=== PATIENT | female | born 1940 | race Caucasian/White ===

== ENCOUNTER 2017-05-03 12:35 | Outpatient (CLI) | payer MEDICARE ==
--- NOTE | 2017-05-03 14:18 | RAD ---
CHEST 2 VIEWS: Date: 05/03/17 HISTORY: Dyspnea. COMPARISON: 09/27/12. FINDINGS: Cardiac silhouette and pulmonary vasculature are unremarkable. Lungs are hyperinflated with scarring at each lung base. There is no confluent air space consolidation, pneumothorax, or pleural fluid evid ent. Mediastinum is midline. IMPRESSION: COPD. POS: CARLYN
== END 2017-05-03 12:36 | disposition home or self-care (01) ==
LOC: RAD 12:35
PROVIDERS: ATTEND Internal Medicine
DX: R06.00 Dyspnea, unspecified (principal); J44.9 Chronic obstructive pulmonary disease, unspecified
CPT/HCPCS: 71046

== ENCOUNTER 2017-05-31 08:29 | Outpatient (CLI) | payer MEDICARE ==
--- NOTE | 2017-05-31 09:53 | CT ---
HIGH RESOLUTION NONCONTRAST CHEST CT: Comparison: Chest CT 09-25-12 Clinical history: Pulmonary fibrosis. FINDINGS: There is bronchiectasis bilaterally, which is predominately traction in appearance. There are multifo kinsey areas of interstitial and ground glass opacification within each lung, predominately subpleural i n location. There is peripheral honeycombing present bilaterally. No pleural fluid. Incidental note of a small hiatal hernia, incompletely assessed exophytic nodule at the inferior aspe ct of the left thyroid lobe. The regional soft tissues are limited in assessment by noncontrast thin section discontiguous axial imaging, as are the osseous structures. IMPRESSION: 1. Evidence of pulmonary fibrosis bilaterally with areas of interstitial opacification and ground gla ss opacity, honeycombing and bronchiectasis, bilaterally. 2. Thyroid nodule, incompletely assessed. Consider follow up with dedicated thyroid ultrasound. POS: CARLYN
--- NOTE | 2017-06-01 11:03 | PFT ---
PATIENT HISTORY: HEIGHT: WEIGHT: SMOKER: HOW LONG: PACKS PER DAY PRODUCTIVE COUGH: LUNG DISEASE: PHYSICIAN INTERPRETATION FINAL REPORT: [employer] comments: The patient had good effort cooperation PFT data: FVC 2.56 (87%), FEV1 12.2 (107%) FEV1/FVC 0.85. TLC 3.94 (78%) Diffusion 10.92 (62%). The FEV1 and the FVC fall within the normal limits. The ratio was also normal. The flow volume loops are normal. Total lung capacity and the residual volume or minimally impaired. The diffusion capacity is mildly reduced IMPRESSION: Overall, in these pulmonary function studies are consistent with an isolated reduced diffusion capacity. That being said, the lung volumes at the lower limits of normal. Early interstitial process cannot be excluded. Clinical and radiographic correlation should be considered. No priors for comparison. Property Technician: BORIS Post Doctoral Researcher: BORIS RENNER
== END 2017-05-31 08:30 | disposition home or self-care (01) ==
LOC: CT 08:29
PROVIDERS: ATTEND Internal Medicine
DX: J84.10 Pulmonary fibrosis, unspecified (principal); J47.9 Bronchiectasis, uncomplicated; E04.1 Nontoxic single thyroid nodule
CPT/HCPCS: 36415; 71250; 82085; 82550; 83520; 85652; 86038; 86140; 86200; 86225; 86235; 94010; 94727; 94729

== ENCOUNTER 2017-07-27 14:30 | Outpatient (CLI) | payer MEDICARE | END 2017-07-27 14:31 | disposition home or self-care (01) | LOC: BICULT 14:30 | PROVIDERS: ATTEND Internal Medicine Endocrinology, Diabetes & Metabolism | DX: E04.9 Nontoxic goiter, unspecified (principal); E11.9 Type 2 diabetes mellitus without complications; J84.112 Idiopathic pulmonary fibrosis; E07.89 Other specified disorders of thyroid | CPT/HCPCS: 76536 ==

== ENCOUNTER 2017-08-07 08:00 | Day surgery (SDC) | payer MEDICARE ==
[2017-08-04 11:53] VITALS: BMI 24.2
[2017-08-07] MEDS ORDERED: Sodium Bicarbonate 2.5 MEQ/5 ML VIAL ONE (08:27)
[2017-08-07] MEDS ORDERED: Lidocaine 1% PF 5 ML VIAL ONE (08:27)
[2017-08-07 09:16] VITALS: BP 128/57; TEMP 98.4
--- NOTE | 2017-08-07 10:45 | ULT ---
ULTRASOUND GUIDED THYROID BIOPSY: History: Left lobe thyroid nodule measuring 2.5 cm in maximum dimension has central necrotic portion and was recommended for biopsy. FINDINGS: After informed consent was obtained the patient was prepped and draped in normal sterile fashion. Loc al anesthesia was obtained with 1% Xylocaine mixed with sodium bicarb. A total of four fine needle as pirations were performed with a 25 gauge needle. The patient tolerated the procedure well. There were no immediate complications. IMPRESSION: Successful biopsy of left lobe thyroid nodule. No immediate complications of the procedure. POS: CARLYN
== END 2017-08-07 09:30 | disposition home or self-care (01) ==
LOC: ULT 08:00
PROVIDERS: ATTEND Internal Medicine Endocrinology, Diabetes & Metabolism
PROC: 0GBG3ZX Excision of Left Thyroid Gland Lobe, Percutaneous Approach, Diagnostic (ICD-10-PCS; principal; 2017-08-07)
DX: E04.1 Nontoxic single thyroid nodule (principal); Z88.1 Allergy status to other antibiotic agents
CPT/HCPCS: 60100; 76942; 88173; 88305; J2001

== ENCOUNTER 2018-02-19 13:29 | Emergency (ER) | payer MEDICARE ==
[2018-02-19 14:29] LABS: #Eosinphils 0.1 thou/uL (0.0-0.7); #Lymphocytes 1.2 thou/uL (1.20-3.40); #Monocytes 0.5 thou/uL (0.11-0.59); #Neutrophils 9.9 thou/uL (1.40-6.50); %Basophils 0.2 % (0.0-1.0); %Eosinophils 0.7 % (0.0-10.0); %Lymphocytes 10.5 % (21.0-51.0); %Monocytes 4.5 % (0.0-10.0); %Neutrophils 84.2 % (42.0-75.0); Hemoglobin 11.1 g/dL (12.0-16.0); Mean Corpuscular HGB CONC 31.4 g/dL (32.0-36.0); Mean Corpuscular Hemoglobin 28.8 pg (27.0-31.0); Mean Corpuscular Volume 91.8 fL (78.0-98.0); Mean Platelet Volume 6.7 fL (7.4-10.4); Platelet Count 356 thou/uL (130-400); RBC Distribution Width 14.4 % (11.5-14.5); Red Blood Cell (RBC) Count 3.85 mill/uL (4.20-5.40); White Blood Cell (WBC) Count 11.7 thou/uL (4.8-10.8)
[2018-02-19 14:49] LABS: ALT (SGPT) 7 U/L (8-55); AST (SGOT) 15 U/L (5-34); Albumin 3.4 g/dL (3.4-4.8); Alkaline Phosphatase 64 U/L (40-150); Anion Gap 16 mmol/L (10-20); BUN (Urea Nitrogen) 16 mg/dL (9.8-20.1); Bilirubin, Total 0.3 mg/dL (0.2-1.2); Calc. Creatinine Clearance 0 mL/min (70-130); Calcium 9.7 mg/dL (7.8-10.44); Carbon Dioxide 25 mmol/L (23-31); Chloride 100 mmol/L (98-107); Estimated GFR-MDRD 80; Globulin 3.8 g/dL (2.4-3.5); Glucose 128 mg/dL (83-110); Potassium 4.6 mmol/L (3.5-5.1); Protein, Total 7.2 g/dL (6.0-8.3); Sodium 136 mmol/L (136-145)
--- NOTE | 2018-02-19 14:50 | RAD ---
PORTABLE CHEST ONE VIEW: 02/19/18 at 1:15 p.m. HISTORY: Nausea, vomiting, dark stools, generalized weakness. FINDINGS: Comparison is made with the exam of 03/12/14. The heart size is enlarged. Chronic changes are seen in the lung sal[place] bilaterally. No lobar consoli dation, pneumothoraces, or pleural effusions are noted. IMPRESSION: No acute process. POS: [facility]
[2018-02-19 14:53] LABS: CKMB 3.2 ng/mL (0-6.6); Troponin I Less than 0.010 ng/mL (< 0.028)
[2018-02-19 14:57] LABS: INR-International Normal Ratio 1.1; PTT 28.9 SEC (22.9-36.1); Prothrombin Time 13.8 SEC (12.0-14.7)
[2018-02-19] MEDS ORDERED: Pantoprazole 40 MG VIAL ONE (15:38)
[2018-02-19 16:00] LABS: Bilirubin Negative (Negative); Blood, Urine Large (Negative); Clarity CLEAR (Clear); Glucose, Urine (Dipstick) Negative (Negative); Leukocyte Negative (Negative); Nitrite Negative (Negative); Protein, Urine (Dipstick) Negative (Neg-Trace); Specific Gravity, Urine 1.009 (1.002-1.036); Urobilinogen 0.2 mg/dL (0.2-1.0)
[2018-02-19 16:06] LABS: Bacteria/HPF None Seen HPF (None Seen); Hyaline Casts/LPF 0-3 HYALINE CAST LPF (0-3 Hyaline); Pathc Cast-AUWi Flag 0.43 (0-2.49); RBC/HPF 21-50 HPF (0-3); Squamous Epithelial 0-3 HPF (0-3); WBC/HPF 0-3 HPF (0-3)
== END 2018-02-19 16:25 | disposition home or self-care (01) ==
LOC: ERS 13:29
DX: D64.89 Other specified anemias (principal); M06.9 Rheumatoid arthritis, unspecified; E78.5 Hyperlipidemia, unspecified; I10 Essential (primary) hypertension; F41.9 Anxiety disorder, unspecified; F32.9 Major depressive disorder, single episode, unspecified; E11.9 Type 2 diabetes mellitus without complications; Z79.899 Other long term (current) drug therapy; Z79.84 Long term (current) use of oral hypoglycemic drugs
CPT/HCPCS: 36415; 51701; 71045; 80053; 81003; 81015; 82274; 82553; 83880; 84484; 85025; 85610; 85652; 85730; 86140; 86850; 86900; 86901; 93005; 96361; 96374; A4353; C9113

== ENCOUNTER 2018-05-31 14:34 | Outpatient (CLI) | payer MEDICARE ==
--- NOTE | 2018-06-01 07:23 | ULT ---
THYROID ULTRASOUND: 05/31/18 HISTORY: Thyroid mass. Thyroid goiter. COMPARISON: 07/27/17. TECHNIQUE: Sagittal and transverse imaging of thyroid gland is performed. FINDINGS: Thyroid isthmus measures 0.4 cm. Right thyroid lobe measures 3.5 x 1.4 x 0.7 cm. Left thyroid lobe measures 1.2 x 1.6 x 5.4 cm. In the mid to lower aspect of the left thyroid lobe is a complex solid and cystic mass measuring 2.5 x 3.8 x 1.6 cm. Incidental 0.7 cm solid focus in the right thyroid lobe. IMPRESSION: Complex solid and cystic mass in the left thyroid lobe. TIRADS calculator score of TR4 moderately radha picious. This lesion has been biopsied in the past. Please refer to biopsy report for further detai l. POS: CARLYN
== END 2018-05-31 14:35 | disposition home or self-care (01) ==
LOC: BICULT 14:34
PROVIDERS: ATTEND Internal Medicine Endocrinology, Diabetes & Metabolism
DX: E04.8 Other specified nontoxic goiter (principal); J84.112 Idiopathic pulmonary fibrosis; E07.9 Disorder of thyroid, unspecified
CPT/HCPCS: 76536

== ENCOUNTER 2018-10-31 08:53 | Outpatient (CLI) | payer MEDICARE ==
--- NOTE | 2018-11-01 15:52 | PFT ---
PATIENT HISTORY: HEIGHT: 67 IN WEIGHT: 147 SMOKER: NO HOW LONG: NEVER PACKS PER DAY: PRODUCTIVE COUGH: NO LUNG DISEASE: PHYSICIAN INTERPRETATION FINAL REPORT: Patients Vital Capacity and Expiratory Flows were normal, but Diffusion Capacity was severely reduced. These values were compared to a previous Diffusion Capacity done 05/2017 which shows there is a further decline in the Diffusion Capacity. IMPRESSION: Reduced diffusion capacity Mortgage Broker: BORIS [facility] Director: BORIS RENNER
== END 2018-10-31 08:54 | disposition home or self-care (01) ==
LOC: CP 08:53
PROVIDERS: ATTEND Internal Medicine
DX: J84.89 Other specified interstitial pulmonary diseases (principal); M06.9 Rheumatoid arthritis, unspecified
CPT/HCPCS: 94010; 94729

== ENCOUNTER 2019-04-11 14:40 | Inpatient (IN) | payer MEDICARE ==
[2019-04-11] MEDS ORDERED: HYDROcodone/Acetaminophen 5/325 mg Tablet ONE (15:30)
[2019-04-11] MEDS ORDERED: Ibuprofen 200 MG TAB ONE (15:30)
--- NOTE | 2019-04-11 15:58 | CT ---
CT lumbar spine without IV contrast INDICATION: 78-year-old female with back pain Comparison: None FINDINGS: Bones: There is a mild to moderate central superior and inferior endplate compression abnormality inv olving L1. There is bulging of the posterior cortex of L1 without maribeth retropulsion. There is a transverse oriented fracture component that does extend through the central axis of the vertebral bod y. Overall this is consistent with a mild burst fracture. No additional fracture is evident. There is diffuse osteopenia. Disc spaces: There is multilevel loss of normal disc space height most pronounced at L3-4 and L5-S1. There is grade 1 anterolisthesis of L4 and L5 which is likely degenerative. Osseous central canal and neural foramina: No appreciable osseous central canal or neural foraminal n arrowing is demonstrated. Retroperitoneum and paravertebral soft tissues: There is an exophytic mildly hyperdense lesion off th e inferior pole of the right kidney. This measures 1.6 cm. There are mild vascular calcifications seen involving the visualized vasculature. IMPRESSION: 1. Mild burst fracture of L1. 2. Exophytic right renal lesion. Recommend nonemergent follow-up right renal ultrasound for character ization. 3. Moderate lumbar spondylosis. 4. Severe osteopenia.
[2019-04-11] MEDS ORDERED: Cyclobenzaprine 10 MG TAB PO PRN (19:43)
[2019-04-11] MEDS ORDERED: Dextrose 5% in Water 1,000 ML IV PRN (19:45)
[2019-04-11] MEDS ORDERED: Dextrose 50% Abboject 50 ML SYRINGE SLOW IVP PRN (19:45)
[2019-04-11] MEDS ORDERED: Ondansetron PF 4 MG/2 ML Vial IVP PRN (19:47)
[2019-04-11] MEDS ORDERED: Ondansetron ODT 4 MG TAB PO PRN (19:47)
[2019-04-11] MEDS ORDERED: Acetaminophen 325 MG TAB PO PRN (19:47)
[2019-04-11] MEDS ORDERED: Morphine 2 MG/ML SYRINGE SLOW IVP PRN (19:50)
[2019-04-11] MEDS ORDERED: cloNIDine 0.1 MG TAB PO PRN (19:50)
--- NOTE | 2019-04-11 20:06 | HP ---
PRIMARY CARE PHYSICIAN: Dr. Bergeron. PRIMARY RESIDENT ATHLETIC TRAINER: Dr. Peña. CHIEF COMPLAINT: Worsening back pain of 1 week duration. HISTORY OF PRESENT ILLNESS: The patient is a 78-year-old white female, with rheumatoid arthritis on chronic steroids and Humira, diabetes mellitus type 2, and degenerative joint disease, presented to the emergency room with above complaints. Over the last 1 week, the patient has low back pain that is progressively getting worse. The pain got worse today for which she presented to the emergency room. The pain is located in the mid low back. The pain is worse on movement, especially sitting up. Sometimes the pain radiates to the right groin. It is 5/10, constant, relieved on lying down flat. She denies any numbness or tingling in her extremities. She has chronic bladder incontinence which has unchanged. No bowel incontinence reported. She denies any fever, chills, or injuries. In the emergency room, she underwent a CT scan of the lumbar spine without IV contrast that showed mild burst fracture of L1 with moderate lumbar spondylosis and severe osteopenia. She received Sabin and Motrin in the emergency room. PAST MEDICAL HISTORY: 1. Rheumatoid arthritis. 2. Diabetes mellitus type 2. 3. Hypertension. 4. Hyperlipidemia. 5. Degenerative joint disease. 6. Pulmonary fibrosis/Latent Tuberculosis, followed by Dr. Hopson. 7. History of ischemic colitis. PAST SURGICAL HISTORY: 1. Tonsillectomy. 2. Left femur surgery. 3. Ankle surgery. 4. Left hip surgery. 5. Thyroid biopsy. 6. Partial colectomy. ALLERGIES: THE PATIENT IS ALLERGIC TO CIPRO AND LEVAQUIN. FAMILY HISTORY: The patient denies any heart disease or malignancy in her family. SOCIAL HISTORY: The patient currently lives at home with her . Ambulates with the help of a walker. She is full code. She makes her own decision with the help of her family. CURRENT HOME MEDICATIONS: Medications were verified and entered in the [employer]. She takes hydrocodone, Humira, Xanax, calcium with vitamin D, Tresiba 40 units at bedtime, levothyroxine 75 mcg daily, Victoza, lisinopril, lovastatin, metformin, Protonix, and prednisone 5 mg b.i.d. REVIEW OF SYSTEMS: All other review of systems was reviewed and were found negative. PHYSICAL EXAMINATION: VITAL SIGNS: Temperature 98.7, respirations of 16, pulse rate of 106, blood pressure 123/82 with O2 saturation of 95% on room air. GENERAL: A 78-year-old female, in no distress while lying down flat. HEENT: Head, atraumatic and normocephalic. Sclerae anicteric. Moist mucous membrane. No oral lesion. NECK: Supple. No JVD. No carotid bruit. LUNGS: Clear to auscultation bilaterally with bilateral rhonchi with bibasilar rales. No wheezing. LUNGS: Symmetrical. HEART: S1, S2 present. Regular. No rubs or gallops. ABDOMEN: Soft, nontender. Bowel sounds present. EXTREMITIES: No edema or calf tenderness. NEUROLOGY: Grossly nonfocal. Power was 5/5 in all extremities. Sensation to touch was normal bilaterally. MUSCULOSKELETAL: There is pain on the low back. Please note that the patient was lying down flat. SKIN: Warm and dry. LYMPH NODES: No palpable lymph nodes in the neck. Peripheral, vascular, radial pulses are palpable bilaterally. MUSCULOSKELETAL: No joint swelling or tenderness. LABORATORY FINDINGS: Blood sugar was 117. Creatinine last blood work was 0.7. CT of the lumbar spine by my review as discussed above. It also showed exophytic right renal lesion with moderate lumbar spondylosis and severe osteopenia. IMPRESSION: 1. Acute low back pain secondary to L1 compression fracture. 2. New exophytic right renal lesion. Nonemergent right renal ultrasound is recommended. Primary care physician advised to follow. 3. Severe osteopenia with moderate lumbar spondylosis. 4. Rheumatoid arthritis, on chronic steroids and Humira. Last dose of Humira was earlier today. 5. Diabetes mellitus type 2. 6. Hyperlipidemia. 7. Hypertension. 8. Hypothyroidism. 9. Degenerative joint disease. 10. Quinolone allergy. PLAN: The patient will be monitored on the medical floor. Physical Therapy, Occupational Therapy will be consulted. The patient will be bedrest for now until cleared by Neurosurgery. We will start her on insulin sliding scale. Pain control with home dose of Sabin as well as IV morphine as needed. We will also add lidocaine patch. We will resume all of her home medications. Continue PPIs. Continue vitamin D and calcium supplementation. Plan of care was discussed with the patient in detail. She stated understanding. Please note that an attempt was made to send her to the rehab from the emergency room. Job ID: [id number] [facility]
[2019-04-11] MEDS ORDERED: predniSONE 5 MG TAB PO SCH (20:30)
[2019-04-11] MEDS ORDERED: Non-Formulary Item 1 EACH (Insulin Degludec [Tresiba Flextouch U-100] 20 UNIT) SQ SCH (21:00)
[2019-04-11] MEDS: Acetaminophen 325 MG TAB PO SCH (21:05)
[2019-04-11] MEDS: ALPRAZolam 0.25 MG TAB PO PRN (21:07)
[2019-04-11] MEDS: Lidocaine 5% Patch TD SCH (21:10)
[2019-04-11] MEDS: Insulin Glargine 20 UNITS in Pre-Filled Syringe 1 EACH SC SCH (21:10)
[2019-04-11 21:58] VITALS: BMI 23.5
--- NOTE | 2019-04-12 02:18 | CON ---
DATE OF CONSULTATION: ADDITIONAL DICTATOR FOR: Isael Zepeda PA-C HISTORY OF PRESENT ILLNESS: Ms. Bolotn is a very pleasant 78-year-old female whom we were consulted for her low back pain and L1 burst fracture. The patient reports that she has had increased pain in her lower back over the last week with no preceding injury or fall. She reports some right groin pain, otherwise, she denies any leg pain. She does report numbness and tingling in her bilateral feet. However, notes that she is diabetic and there is a potential for a peripheral neuropathy related to this. The patient states that she ambulates with a cane at baseline. PAST MEDICAL HISTORY: Her medical history is significant for rheumatoid arthritis. PHYSICAL EXAMINATION: NEURO: On exam, the patient is awake, alert, and appropriate. She has midline tenderness to palpation over the L1 vertebra and a limited range of motion secondary to pain. She has excellent strength throughout her bilateral lower extremity myotomes. Sensation to light touch is intact and equal in her bilateral lower extremities. She has good movement in her legs. Gait was not assessed. IMPRESSION AND DIAGNOSES: 1. Low back pain with L1 burst fracture. 2. History of rheumatoid arthritis. PLAN: At this time, I have placed a consult for [facility] to see patient and place in a TLSO clamshell brace. I have instructed that the patient be on bed rest until she can be fitted for her brace. Discussed that she should wear the brace anytime she is out of bed. She may wear the brace at other times when seated or lying in bed, however, discuss that constantly wearing the brace may lead to skin breakdown, so she should monitor for this. The patient and her questioned about the need for inpatient rehabilitation. At this time, I am optimistic that the patient will receive improvement in pain and mobility with a TLSO clamshell bracing. However, we have discussed that home health physical therapy or inpatient physical therapy could be considered when re-evaluated after she gets her brace. We will follow up with the patient in clinic in 2 weeks, at which time, we will obtain lumbar x-rays. I have discussed this case and imaging with Dr. Patel. The patient and her agreed with the plan as discussed and all questions were answered. Call with any changes or concerns, otherwise we will see the patient in clinic. This was a 50-minute initial patient evaluation of which greater than 50% of the time was spent in counseling and the clinical coordination. Remaining time was spent in review of records, imaging, evaluation of the patient, examination, and formulation of a plan. Job ID: [id number]
[2019-04-12] MEDS: Levothyroxine Sodium 75 MCG TAB PO SCH (05:38)
[2019-04-12] MEDS: Insulin Regular 300 UNITS/3 ML VIAL SC PRN ×4 (05:38→21:18)
[2019-04-12] MEDS: HYDROcodone/Acetaminophen 5/325 mg Tablet PO PRN (05:42)
[2019-04-12 06:24] LABS: #Eosinphils 0.1 thou/uL (0.0-0.7); #Lymphocytes 1.3 thou/uL (1.20-3.40); #Monocytes 0.7 thou/uL (0.11-0.59); #Neutrophils 7.3 thou/uL (1.40-6.50); %Basophils 0.2 % (0.0-1.0); %Eosinophils 0.9 % (0.0-10.0); %Lymphocytes 13.8 % (21.0-51.0); %Monocytes 7.4 % (0.0-10.0); %Neutrophils 77.8 % (42.0-75.0); Hemoglobin 13.2 g/dL (12.0-16.0); Mean Corpuscular HGB CONC 33.4 g/dL (32.0-36.0); Mean Corpuscular Hemoglobin 30.8 pg (27.0-31.0); Mean Corpuscular Volume 92.3 fL (78.0-98.0); Mean Platelet Volume 6.8 fL (7.4-10.4); Platelet Count 235 thou/uL (130-400); RBC Distribution Width 15.1 % (11.5-14.5); Red Blood Cell (RBC) Count 4.28 mill/uL (4.20-5.40); White Blood Cell (WBC) Count 9.4 thou/uL (4.8-10.8)
[2019-04-12 06:35] LABS: ALT (SGPT) 20 U/L (8-55); AST (SGOT) 15 U/L (5-34); Albumin 3.6 g/dL (3.4-4.8); Alkaline Phosphatase 79 U/L (40-110); Anion Gap 13 mmol/L (10-20); BUN (Urea Nitrogen) 31 mg/dL (9.8-20.1); Bilirubin, Total 0.5 mg/dL (0.2-1.2); Calc. Creatinine Clearance 59 mL/min (70-130); Calcium 9.6 mg/dL (7.8-10.44); Carbon Dioxide 26 mmol/L (23-31); Chloride 100 mmol/L (98-107); Estimated GFR-MDRD 72; Glucose 160 mg/dL (83-110); Potassium 4.9 mmol/L (3.5-5.1); Protein, Total 6.6 g/dL (6.0-8.3); Sodium 134 mmol/L (136-145)
[2019-04-12] MEDS: metFORMIN 500 MG TAB PO SCH (08:20)
[2019-04-12] MEDS: Acetaminophen 325 MG TAB PO SCH ×3 (08:21→20:14)
[2019-04-12] MEDS: Calcium Carbonate + Vit D 1 TAB PO SCH ×2 (08:22→17:40)
[2019-04-12] MEDS: Enoxaparin Sodium 30 MG/0.3 ML SYRINGE SC SCH (08:23)
[2019-04-12] MEDS ORDERED: Prevnar 13-Val Conj/PF 0.5 ML SYRINGE IM ONE (09:00)
[2019-04-12] MEDS ORDERED: FLU VACC TS2019-20(65YR UP)/PF 180 MCG/0.5 ML SYRINGE IM ONE (09:00)
[2019-04-12] MEDS ORDERED: Liraglutide [Victoza 2-Pak] 1.8 MG SC SCH (09:00)
[2019-04-12] MEDS: predniSONE 5 MG TAB PO SCH ×2 (09:42→17:40)
[2019-04-12] MEDS: Lidocaine Patch Removal 1 EACH TOP SCH (09:44)
--- NOTE | 2019-04-12 16:00 | PDOC.HOSPP ---
- Subjective Encounter Date: 04/12/19 Encounter Time: 15:58 Subjective: Patient seen and examined for back pain. Back pain same. No significant improvement. No fevre/chills. No new complaints. No overnight events - Objective Vital Signs & Weight: Vital Signs (12 hours) Temp Pulse Resp BP Pulse Ox 04/12/19 11:47 98.4 F 86 18 141/72 H 95 04/12/19 08:16 96 04/12/19 07:51 97.7 F 74 18 105/66 96 04/12/19 04:10 97.3 F L 81 18 112/71 94 L Weight Weight 137 lb I&O: 04/11/19 04/12/19 04/13/19 06:59 06:59 06:59 Intake Total 410 Balance 410 Result Diagrams: 04/12/19 05:46 04/12/19 05:46 Additional Labs: Accuchecks 04/12/19 04/12/19 04/11/19 11:24 04:12 20:03 POC Glucose 156 H 180 H 140 H 04/11/19 19:01 POC Glucose 117 H Hospitalist ROS - Review of Systems Respiratory: denies: cough, dry, shortness of breath, hemoptysis, SOB with excertion, pleuritic pain, sputum, wheezing, other Cardiovascular: denies: chest pain, palpitations, orthopnea, paroxysmal noc. dyspnea, edema, light headedness, other - Medication Medications: Active Medications Generic Name Dose Route Start Last Admin Trade Name Freq PRN Reason Stop Dose Admin Acetaminophen 650 mg 04/11/19 21:00 04/12/19 15:04 Tylenol PO 650 mg TID LOUISE Administration Hydrocodone Bitart/Acetaminophen 1 tab 04/11/19 19:50 04/12/19 05:42 Kimberly 5/325 PO 1 tab Q6H PRN Administration Moderate Pain (4-6) Alprazolam 0.25 mg 04/11/19 19:50 04/11/19 21:07 Xanax PO 0.25 mg TIDPRN PRN Administration Anxiety Calcium/Vitamin D 1 tab 04/12/19 09:00 04/12/19 08:22 Caltrate 600 + Vit D PO Not Given 0900,1700 [facility] Cholecalciferol 5,000 units 04/12/19 09:00 04/12/19 08:20 Vitamin D3 PO 5,000 units DAILY LOUISE Administration Cyclobenzaprine HCl 5 mg 04/11/19 19:43 04/11/19 21:06 Flexeril PO 04/13/19 19:44 5 mg TIDPRN PRN Administration Muscle Spasm Enoxaparin Sodium 30 mg 04/12/19 09:00 04/12/19 08:23 Lovenox SC 30 mg 0900 LOUISE Administration Insulin Glargine 20 units/ 0.2 mls @ 0 mls/hr 04/11/19 21:00 04/11/19 21:10 Miscellaneous Medication SC 0.2 mls HS LOUISE Administration Insulin Human Regular 0 units 04/11/19 19:45 04/12/19 12:51 Humulin R SC 2 unit .MILD SLIDING SCALE PRN Administration Mild Correctional Scale Levothyroxine Sodium 75 mcg 04/12/19 06:00 04/12/19 05:38 Synthroid PO 75 mcg 0600 LOUISE Administration Lidocaine 1 patch 04/11/19 21:00 04/11/19 21:10 Lidoderm 5% Patch TD 1 patch 2100 LOUISE Administration Metformin HCl 500 mg 04/12/19 08:00 04/12/19 08:20 Glucophage PO 500 mg QAM-WM LOUISE Administration Miscellaneous Medication 1 each 04/12/19 09:00 04/12/19 09:44 Lidocaine Patch Removal TOP 1 each 0900 LOUISE Administration Pantoprazole Sodium 40 mg 04/12/19 09:00 04/12/19 08:22 Protonix PO 40 mg DAILY LOUISE Administration Prednisone 5 mg 04/12/19 08:00 04/12/19 09:42 Prednisone PO 5 mg BID-WM LOUISE Administration - Exam General Appearance: NAD Neck: supple, no JVD Heart: RRR, no gallops Respiratory: CTAB, no rales Gastrointestinal: soft, non-tender, normal bowel sounds Extremities: no edema Neurological: no new deficit Psychiatric: normal affect, A&O x 3 Hosp A/P - Plan DVT proph w/SCDs 1. Acute low back pain secondary to L1 compression fracture. 2. New exophytic right renal lesion. 3. Severe osteopenia with moderate lumbar spondylosis. 4. Rheumatoid arthritis, on chronic steroids and Humira. 5. Diabetes mellitus type 2. 6. Hyperlipidemia. 7. Hypertension. 8. Hypothyroidism. 9. Degenerative joint disease. 10. Hyponatremia 11. Quinolone allergy. PLAN: NSG input appreciated TLSO brace ordered - waiting Cont current pain meds Cont Lidocaine patch Renal USG as outpt Cont Lantus with sliding scale Cont other meds as above Await Rehab eval
[2019-04-12] MEDS ORDERED: Senokot 8.6 MG TAB PO PRN (16:09)
[2019-04-12] MEDS ORDERED: Polyethylene Glycol 3350 17 GM Packet PO PRN (16:09)
[2019-04-12] MEDS ORDERED: Docusate 100 MG CAP PO PRN (16:09)
[2019-04-12] MEDS: Lovastatin 20 MG TAB PO SCH (17:40)
[2019-04-12] MEDS: Insulin Glargine 20 UNITS in Pre-Filled Syringe 1 EACH SC SCH (20:14)
[2019-04-12] MEDS: Lidocaine 5% Patch TD SCH (20:15)
[2019-04-12] MEDS: Lisinopril 10 MG TAB PO SCH (20:15)
[2019-04-12] MEDS: ALPRAZolam 0.25 MG TAB PO PRN (21:17)
[2019-04-13] MEDS: Levothyroxine Sodium 75 MCG TAB PO SCH (05:35)
[2019-04-13] MEDS: Insulin Regular 300 UNITS/3 ML VIAL SC PRN ×3 (05:37→21:13)
[2019-04-13] MEDS: predniSONE 5 MG TAB PO SCH ×2 (08:09→17:20)
[2019-04-13] MEDS: Enoxaparin Sodium 30 MG/0.3 ML SYRINGE SC SCH (08:09)
[2019-04-13] MEDS: Acetaminophen 325 MG TAB PO SCH ×3 (08:09→21:14)
[2019-04-13] MEDS: metFORMIN 500 MG TAB PO SCH (08:09)
[2019-04-13] MEDS: Calcium Carbonate + Vit D 1 TAB PO SCH ×2 (08:09→16:19)
[2019-04-13] MEDS: Lidocaine Patch Removal 1 EACH TOP SCH (08:14)
[2019-04-13] MEDS: HYDROcodone/Acetaminophen 5/325 mg Tablet PO PRN (14:35)
--- NOTE | 2019-04-13 16:31 | PDOC.HOSPP ---
- Subjective Encounter Date: 04/13/19 Encounter Time: 08:00 Subjective: Patient seen and examined for L1 compression fracture. TLSO brace arranged. No new focal deficits. No new complaints. No overnight events - Objective Vital Signs & Weight: Vital Signs (12 hours) Temp Pulse Resp BP BP Pulse Ox 04/13/19 08:10 97 04/13/19 07:49 98.1 F 61 17 117/63 97 04/13/19 04:34 97.6 F 65 20 126/81 97 Weight Weight 137 lb I&O: 04/12/19 04/13/19 04/14/19 06:59 06:59 06:59 Intake Total 410 1470 Output Total 1250 Balance 410 220 Result Diagrams: 04/12/19 05:46 04/12/19 05:46 Additional Labs: Accuchecks 04/13/19 04/13/19 04/12/19 11:55 04:36 23:05 POC Glucose 147 H 167 H 211 H 04/12/19 04/12/19 19:19 17:16 POC Glucose 234 H 176 H Hospitalist ROS - Review of Systems Respiratory: denies: cough, dry, shortness of breath, hemoptysis, SOB with excertion, pleuritic pain, sputum, wheezing, other Cardiovascular: denies: chest pain, palpitations, orthopnea, paroxysmal noc. dyspnea, edema, light headedness, other Gastrointestinal: denies: nausea, vomiting, abdominal pain, diarrhea, constipation, melena, hematochezia, other - Medication Medications: Active Medications Generic Name Dose Route Start Last Admin Trade Name Freq PRN Reason Stop Dose Admin Acetaminophen 650 mg 04/11/19 21:00 04/13/19 14:09 Tylenol PO 650 mg TID LOUISE Administration Hydrocodone Bitart/Acetaminophen 1 tab 04/11/19 19:50 04/13/19 14:35 Casco 5/325 PO 1 tab Q6H PRN Administration Moderate Pain (4-6) Alprazolam 0.25 mg 04/11/19 19:50 04/12/19 21:17 Xanax PO 0.25 mg TIDPRN PRN Administration Anxiety Calcium/Vitamin D 1 tab 04/12/19 09:00 04/13/19 16:19 Caltrate 600 + Vit D PO Not Given 0900,1700 LOUISE Cholecalciferol 5,000 units 04/12/19 09:00 04/13/19 08:12 Vitamin D3 PO 5,000 units DAILY LOUISE Administration Cyclobenzaprine HCl 5 mg 04/11/19 19:43 04/11/19 21:06 Flexeril PO 04/13/19 19:44 5 mg TIDPRN PRN Administration Muscle Spasm Enoxaparin Sodium 30 mg 04/12/19 09:00 04/13/19 08:09 Lovenox SC 30 mg 0900 LOUISE Administration Insulin Glargine 20 units/ 0.2 mls @ 0 mls/hr 04/11/19 21:00 04/12/19 20:14 Miscellaneous Medication SC 0.2 mls HS LOUISE Administration Insulin Human Regular 0 units 04/11/19 19:45 04/13/19 05:37 Humulin R SC 2 unit .MILD SLIDING SCALE PRN Administration Mild Correctional Scale Insulin Human Regular 0 units 04/11/19 19:45 04/12/19 21:18 Humulin R SC 2 unit .BEDTIME SLIDING SC PRN Administration Bedtime Correctional Scale Levothyroxine Sodium 75 mcg 04/12/19 06:00 04/13/19 05:35 Synthroid PO 75 mcg 0600 LOUISE Administration Lidocaine 1 patch 04/11/19 21:00 04/12/19 20:15 Lidoderm 5% Patch TD 1 patch 2100 LOUISE Administration Lisinopril 10 mg 04/12/19 21:00 04/12/19 20:15 Zestril PO 10 mg HS LOUISE Administration Lovastatin 20 mg 04/12/19 17:00 04/12/19 17:40 Mevacor PO 20 mg QPM-WM LOUISE Administration Metformin HCl 500 mg 04/12/19 08:00 04/13/19 08:09 Glucophage PO 500 mg QAM-WM LOUISE Administration Miscellaneous Medication 1 each 04/12/19 09:00 04/13/19 08:14 Lidocaine Patch Removal TOP 1 each 09 LOUISE Administration Pantoprazole Sodium 40 mg 04/12/19 09:00 04/13/19 08:09 Protonix PO 40 mg DAILY LOUISE Administration Prednisone 5 mg 04/12/19 08:00 04/13/19 08:09 Prednisone PO 5 mg BID-WM LOUISE Administration - Exam General Appearance: NAD Heart: RRR, no gallops Respiratory: no rales, no ronchi Gastrointestinal: soft, non-distended Extremities: no edema Hosp A/P - Plan 1. Acute low back pain secondary to L1 compression fracture. 2. New exophytic right renal lesion. 3. Severe osteopenia with moderate lumbar spondylosis. 4. Rheumatoid arthritis, on chronic steroids and Humira. 5. Diabetes mellitus type 2. 6. Hyperlipidemia. 7. Hypertension. 8. Hypothyroidism. 9. Degenerative joint disease. 10. Hyponatremia 11. Quinolone allergy. 12. Urinary retention. PLAN: Cont TLSO brace PT eval pending Await Rehab eval Cont Lidoderm patch with PRN meds Cont Lantus with sliding scale Cont current pain meds Renal USG as outpt Cont other meds Check postvoid residual Stable for dc to Rehab if bed available
[2019-04-13] MEDS: Lovastatin 20 MG TAB PO SCH (17:20)
[2019-04-13] MEDS: Insulin Glargine 20 UNITS in Pre-Filled Syringe 1 EACH SC SCH (21:13)
[2019-04-13] MEDS: Lisinopril 10 MG TAB PO SCH (21:14)
[2019-04-13] MEDS: Docusate 100 MG CAP PO SCH (21:14)
[2019-04-13] MEDS: Lidocaine 5% Patch TD SCH (21:15)
[2019-04-13] MEDS: ALPRAZolam 0.25 MG TAB PO PRN (23:39)
[2019-04-14] MEDS: Insulin Regular 300 UNITS/3 ML VIAL SC PRN ×2 (05:48→21:01)
[2019-04-14] MEDS: Levothyroxine Sodium 75 MCG TAB PO SCH (05:48)
[2019-04-14] MEDS: metFORMIN 500 MG TAB PO SCH (09:03)
[2019-04-14] MEDS: Calcium Carbonate + Vit D 1 TAB PO SCH ×2 (09:03→17:11)
[2019-04-14] MEDS: Acetaminophen 325 MG TAB PO SCH ×3 (09:03→21:00)
[2019-04-14] MEDS: predniSONE 5 MG TAB PO SCH ×2 (09:03→17:11)
[2019-04-14] MEDS: HYDROcodone/Acetaminophen 5/325 mg Tablet PO PRN (09:05)
[2019-04-14] MEDS: Docusate 100 MG CAP PO SCH ×2 (09:07→21:00)
[2019-04-14] MEDS: Enoxaparin Sodium 30 MG/0.3 ML SYRINGE SC SCH (09:07)
[2019-04-14] MEDS: Lidocaine Patch Removal 1 EACH TOP SCH (09:08)
[2019-04-14] MEDS: Lovastatin 20 MG TAB PO SCH (17:11)
--- NOTE | 2019-04-14 19:28 | PDOC.HOSPP ---
- Subjective Encounter Date: 04/14/19 Encounter Time: 14:30 Subjective: Patient seen and examined for back pain. Back pain controlled. No new focal deficits. No new complaints. No overnight events - Objective Vital Signs & Weight: Vital Signs (12 hours) Temp Pulse Resp BP Pulse Ox 04/14/19 08:19 97.6 F 59 L 18 122/70 97 04/14/19 08:00 97 Weight Weight 137 lb I&O: 04/13/19 04/14/19 04/15/19 06:59 06:59 06:59 Intake Total 1470 1280 1000 Output Total 1250 2403 Balance 220 -1123 1000 Result Diagrams: 04/12/19 05:46 04/12/19 05:46 Additional Labs: Accuchecks 04/14/19 04/14/19 04/14/19 16:37 11:28 03:38 POC Glucose 171 H 134 H 178 H 04/13/19 20:28 POC Glucose 249 H Hospitalist ROS - Review of Systems Respiratory: denies: cough, dry, shortness of breath, hemoptysis, SOB with excertion, pleuritic pain, sputum, wheezing, other Cardiovascular: denies: chest pain, palpitations, orthopnea, paroxysmal noc. dyspnea, edema, light headedness, other - Medication Medications: Active Medications Generic Name Dose Route Start Last Admin Trade Name Freq PRN Reason Stop Dose Admin Acetaminophen 650 mg 04/11/19 21:00 04/14/19 15:15 Tylenol PO 650 mg TID LOUISE Administration Hydrocodone Bitart/Acetaminophen 1 tab 04/11/19 19:50 04/14/19 09:05 [place] 5/325 PO 1 tab Q6H PRN Administration Moderate Pain (4-6) Alprazolam 0.25 mg 04/11/19 19:50 04/13/19 23:39 Xanax PO 0.25 mg TIDPRN PRN Administration Anxiety Calcium/Vitamin D 1 tab 04/12/19 09:00 04/14/19 17:11 Caltrate 600 + Vit D PO 1 tab 0900,1700 LOIUSE Administration Cholecalciferol 5,000 units 04/12/19 09:00 04/14/19 09:02 Vitamin D3 PO 5,000 units DAILY LOUISE Administration Docusate Sodium 100 mg 04/13/19 21:00 04/14/19 09:07 Colace PO Not Given BID LOUISE Enoxaparin Sodium 30 mg 04/12/19 09:00 04/14/19 09:07 Lovenox SC 30 mg 0900 LOUISE Administration Insulin Human Regular 0 units 04/11/19 19:45 04/14/19 05:48 Humulin R SC 2 unit .MILD SLIDING SCALE PRN Administration Mild Correctional Scale Insulin Human Regular 0 units 04/11/19 19:45 04/13/19 21:13 Humulin R SC 2 unit .BEDTIME SLIDING SC PRN Administration Bedtime Correctional Scale Levothyroxine Sodium 75 mcg 04/12/19 06:00 04/14/19 05:48 Synthroid PO 75 mcg 0600 LOUISE Administration Lidocaine 1 patch 04/11/19 21:00 04/13/19 21:15 Lidoderm 5% Patch TD 1 patch 2100 LOUISE Administration Lisinopril 10 mg 04/12/19 21:00 04/13/19 21:14 Zestril PO Not Given HS LOUISE Lovastatin 20 mg 04/12/19 17:00 04/14/19 17:11 Mevacor PO 20 mg QPM-WM LOUISE Administration Metformin HCl 500 mg 04/12/19 08:00 04/14/19 09:03 Glucophage PO 500 mg QAM-WM LOUISE Administration Miscellaneous Medication 1 each 04/12/19 09:00 04/14/19 09:08 Lidocaine Patch Removal TOP 1 each 0900 LOUISE Administration Pantoprazole Sodium 40 mg 04/12/19 09:00 04/14/19 09:08 Protonix PO 40 mg DAILY LOUISE Administration Prednisone 5 mg 04/12/19 08:00 04/14/19 17:11 Prednisone PO 5 mg BID-WM LOUISE Administration - Exam General Appearance: NAD Heart: RRR, no gallops Respiratory: no wheezes, no rales Gastrointestinal: non-distended, normal bowel sounds Extremities: no edema Neurological: no new deficit Hosp A/P - Plan DVT proph w/lovenox, DVT proph w/SCDs 1. Acute low back pain secondary to L1 compression fracture. 2. New exophytic right renal lesion. Renal USG as outpt 3. Severe osteopenia with moderate lumbar spondylosis. 4. Rheumatoid arthritis, on chronic steroids and Humira. 5. Diabetes mellitus type 2. 6. Hyperlipidemia. 7. Hypertension. 8. Hypothyroidism. 9. Degenerative joint disease. 10. Hyponatremia 11. Quinolone allergy. 12. Urinary retention. PLAN: Cont PT Cont TLSO brace Cont Lidoderm patch with PRN meds Cont 30 units Lantus with sliding scale Cont current pain meds Cont other meds as above Postvoid residual ok Stable for dc to Rehab if bed available Labs Q3-4 days
[2019-04-14] MEDS: Lidocaine 5% Patch TD SCH (21:00)
[2019-04-14] MEDS: Insulin Glargine 30 UNITS in Pre-Filled Syringe 1 EACH SC SCH (21:00)
[2019-04-14] MEDS: Lisinopril 10 MG TAB PO SCH (21:00)
[2019-04-14] MEDS: ALPRAZolam 0.25 MG TAB PO PRN (21:00)
[2019-04-15] MEDS: Levothyroxine Sodium 75 MCG TAB PO SCH (06:02)
[2019-04-15] MEDS: Calcium Carbonate + Vit D 1 TAB PO SCH ×2 (08:23→17:02)
[2019-04-15] MEDS: Multivit, Therapeutic 1 TAB PO SCH (08:23)
[2019-04-15] MEDS: Acetaminophen 325 MG TAB PO SCH ×3 (08:23→20:42)
[2019-04-15] MEDS: metFORMIN 500 MG TAB PO SCH (08:24)
[2019-04-15] MEDS: Lidocaine Patch Removal 1 EACH TOP SCH (08:24)
[2019-04-15] MEDS: Enoxaparin Sodium 30 MG/0.3 ML SYRINGE SC SCH (08:24)
[2019-04-15] MEDS: predniSONE 5 MG TAB PO SCH ×2 (08:24→17:02)
[2019-04-15] MEDS: Docusate 100 MG CAP PO SCH ×2 (08:24→20:42)
[2019-04-15] MEDS: HYDROcodone/Acetaminophen 5/325 mg Tablet PO PRN (13:31)
[2019-04-15] MEDS: Lovastatin 20 MG TAB PO SCH (17:03)
[2019-04-15] MEDS: Lidocaine 5% Patch TD SCH (20:42)
[2019-04-15] MEDS: Lisinopril 10 MG TAB PO SCH (20:43)
[2019-04-15] MEDS: ALPRAZolam 0.25 MG TAB PO PRN (20:44)
[2019-04-15] MEDS: Insulin Glargine 30 UNITS in Pre-Filled Syringe 1 EACH SC SCH (20:44)
[2019-04-15] MEDS: Insulin Regular 300 UNITS/3 ML VIAL SC PRN (20:52)
[2019-04-16] MEDS: Levothyroxine Sodium 75 MCG TAB PO SCH (05:19)
[2019-04-16 05:45] LABS: #Basophils 0.1 thou/uL (0.0-0.2); #Eosinphils 0.3 thou/uL (0.0-0.7); #Lymphocytes 1.9 thou/uL (1.20-3.40); #Neutrophils 7.4 thou/uL (1.40-6.50); %Basophils 0.5 % (0.0-1.0); %Eosinophils 2.7 % (0.0-10.0); %Lymphocytes 17.9 % (21.0-51.0); %Monocytes 9.7 % (0.0-10.0); %Neutrophils 69.2 % (42.0-75.0); Hemoglobin 12.6 g/dL (12.0-16.0); Mean Corpuscular HGB CONC 33.6 g/dL (32.0-36.0); Mean Corpuscular Hemoglobin 30.8 pg (27.0-31.0); Mean Corpuscular Volume 91.8 fL (78.0-98.0); Mean Platelet Volume 6.7 fL (7.4-10.4); Platelet Count 252 thou/uL (130-400); RBC Distribution Width 14.8 % (11.5-14.5); Red Blood Cell (RBC) Count 4.09 mill/uL (4.20-5.40); White Blood Cell (WBC) Count 10.7 thou/uL (4.8-10.8)
[2019-04-16 06:14] LABS: Anion Gap 13 mmol/L (10-20); BUN (Urea Nitrogen) 20 mg/dL (9.8-20.1); Calc. Creatinine Clearance 67 mL/min (70-130); Calcium 9.9 mg/dL (7.8-10.44); Carbon Dioxide 29 mmol/L (23-31); Chloride 97 mmol/L (98-107); Estimated GFR-MDRD 82; Glucose 171 mg/dL (83-110); Potassium 4.2 mmol/L (3.5-5.1); Sodium 135 mmol/L (136-145)
[2019-04-16 07:51] VITALS: BP 110/66; TEMP 98.2
--- NOTE | 2019-04-16 07:55 | PDOC.HOSPP ---
- Subjective Encounter Date: 04/15/19 Encounter Time: 09:30 Subjective: Patient seen and examined for back pain. Pain controlled. No new complaints. No overnight events - Objective Vital Signs & Weight: Vital Signs (12 hours) Temp Pulse Resp BP BP Pulse Ox 04/16/19 07:50 98.2 F 69 18 110/66 96 04/15/19 20:43 120/73 04/15/19 20:00 94 L Weight Weight 137 lb I&O: 04/15/19 04/16/19 04/17/19 06:59 06:59 06:59 Intake Total 1600 1350 Output Total 1550 1800 Balance 50 -450 Result Diagrams: 04/16/19 05:01 04/16/19 05:00 Additional Labs: Accuchecks 04/16/19 04/15/19 04/15/19 05:13 19:43 17:21 POC Glucose 178 H 218 H 153 H 04/15/19 11:55 POC Glucose 118 H Hospitalist ROS - Review of Systems Respiratory: denies: cough, dry, shortness of breath, hemoptysis, SOB with excertion, pleuritic pain, sputum, wheezing, other Cardiovascular: denies: chest pain, palpitations, orthopnea, paroxysmal noc. dyspnea, edema, light headedness, other - Medication Medications: Active Medications Generic Name Dose Route Start Last Admin Trade Name Freq PRN Reason Stop Dose Admin Acetaminophen 650 mg 04/11/19 21:00 04/15/19 20:42 Tylenol PO 650 mg TID LOUISE Administration Hydrocodone Bitart/Acetaminophen 1 tab 04/11/19 19:50 04/15/19 13:31 [place] 5/325 PO 1 tab Q6H PRN Administration Moderate Pain (4-6) Alprazolam 0.25 mg 04/11/19 19:50 04/15/19 20:44 Xanax PO 0.25 mg TIDPRN PRN Administration Anxiety Calcium/Vitamin D 1 tab 04/12/19 09:00 04/15/19 17:02 Caltrate 600 + Vit D PO 1 tab 0900,1700 LOUISE Administration Cholecalciferol 5,000 units 04/12/19 09:00 04/15/19 08:23 Vitamin D3 PO 5,000 units DAILY LOUISE Administration Docusate Sodium 100 mg 04/13/19 21:00 04/15/19 20:42 Colace PO Not Given BID LOUISE Enoxaparin Sodium 30 mg 04/12/19 09:00 04/15/19 08:24 Lovenox SC 30 mg 0900 LOUISE Administration Insulin Glargine 30 units/ 0.3 mls @ 0 mls/hr 04/14/19 21:00 04/15/19 20:44 Miscellaneous Medication SC 0.3 mls HS LOUISE Administration Insulin Human Regular 0 units 04/11/19 19:45 04/14/19 05:48 Humulin R SC 2 unit .MILD SLIDING SCALE PRN Administration Mild Correctional Scale Insulin Human Regular 0 units 04/11/19 19:45 04/15/19 20:52 Humulin R SC 2 unit .BEDTIME SLIDING SC PRN Administration Bedtime Correctional Scale Levothyroxine Sodium 75 mcg 04/12/19 06:00 04/16/19 05:19 Synthroid PO 75 mcg 0600 LOUISE Administration Lidocaine 1 patch 04/11/19 21:00 04/15/19 20:42 Lidoderm 5% Patch TD 1 patch 2100 LOUISE Administration Lisinopril 10 mg 04/12/19 21:00 04/15/19 20:43 Zestril PO 10 mg HS LOUISE Administration Lovastatin 20 mg 04/12/19 17:00 04/15/19 17:03 Mevacor PO 20 mg QPM-WM LOUISE Administration Metformin HCl 500 mg 04/12/19 08:00 04/15/19 08:24 Glucophage PO 500 mg QAM-WM LOUISE Administration Miscellaneous Medication 1 each 04/12/19 09:00 04/15/19 08:24 Lidocaine Patch Removal TOP 1 each 0900 LOUISE Administration Multivitamins 1 tab 04/15/19 09:00 04/15/19 08:23 Theragran PO 1 tab DAILY LOUISE Administration Pantoprazole Sodium 40 mg 04/12/19 09:00 04/15/19 08:23 Protonix PO 40 mg DAILY LOUISE Administration Prednisone 5 mg 04/12/19 08:00 04/15/19 17:02 Prednisone PO 5 mg BID-WM LOUISE Administration - Exam Neck: no JVD Heart: RRR, no gallops Respiratory: CTAB, no rales Gastrointestinal: soft, non-tender, normal bowel sounds Extremities: no edema Hosp A/P - Plan DVT proph w/SCDs 1. Acute low back pain secondary to L1 compression fracture. 2. New exophytic right renal lesion. Renal USG as outpt 3. Severe osteopenia with moderate lumbar spondylosis. 4. Rheumatoid arthritis, on chronic steroids and Humira. 5. Diabetes mellitus type 2. 6. Hyperlipidemia. 7. Hypertension. 8. Hypothyroidism. 9. Degenerative joint disease. 10. Hyponatremia 11. Quinolone allergy. 12. Urinary retention. PLAN: Cont PT/TLSO brace Cont current pain meds Cont 30 units Lantus with sliding scale Add 10 units of Lantus daily Cont current pain meds Cont other meds as above Stable for dc to SNF if bed available
[2019-04-16] MEDS: Acetaminophen 325 MG TAB PO SCH (08:41)
[2019-04-16] MEDS: predniSONE 5 MG TAB PO SCH (08:41)
[2019-04-16] MEDS: Calcium Carbonate + Vit D 1 TAB PO SCH (08:41)
[2019-04-16] MEDS: Multivit, Therapeutic 1 TAB PO SCH (08:42)
[2019-04-16] MEDS: metFORMIN 500 MG TAB PO SCH (08:42)
[2019-04-16] MEDS: Docusate 100 MG CAP PO SCH (08:42)
[2019-04-16] MEDS: Enoxaparin Sodium 30 MG/0.3 ML SYRINGE SC SCH (08:42)
[2019-04-16] MEDS: Lidocaine Patch Removal 1 EACH TOP SCH (08:43)
[2019-04-16] MEDS ORDERED: Insulin Glargine 10 UNITS in Pre-Filled Syringe 1 EACH SC SCH (09:00)
[2019-04-16] MEDS: Insulin Regular 300 UNITS/3 ML VIAL SC PRN (12:23)
[2019-04-16] MEDS: HYDROcodone/Acetaminophen 5/325 mg Tablet PO PRN (12:26)
--- NOTE | 2019-04-16 13:35 | DIS ---
DATE OF ADMISSION: 04/11/2019 DATE OF DISCHARGE: 04/16/2019 DIS[facility]GE DISPOSITION: [facility] FOLLOWUP: 1. Follow up with Dr. Bergeron as scheduled. 2. Follow up with Neurosurgery, Dr. Patel in 2 weeks. 3. Renal ultrasound as outpatient is recommended. Primary care physician advised to follow. ALLERGIES: THE PATIENT IS ALLERGIC TO QUINOLONES. DISCHARGE MEDICATION: 1. Tylenol 650 mg 3 times daily scheduled. 2. Colace 100 mg b.i.d. 3. Lidocaine patch as needed. 4. Multivitamin one tablet daily. 5. MiraLAX as needed. 6. Tylenol as needed for pain. 7. The patient was seen and examined on the day of discharge. Denies any new complaints. BRIEF HOSPITAL COURSE: The patient is a 78-year-old female with osteoporosis and rheumatoid arthritis, presented to the hospital with intractable low back pain of 1 week duration. A workup was consistent with L1 compression fracture. A lumbar CT scan in the emergency room showed mild burst fracture of L1. She was evaluated by Neurosurgery. TLSO brace has been recommended. The patient is participating in the physical therapy. She has been transferred to [facility] in [place] for rehabilitation. The lumbar spine CT scan also showed some exophytic right renal lesion. A nonemergent right renal ultrasound is recommended. Primary care physician advised to follow. FINAL DIAGNOSES: 1. Acute low back pain secondary to L1 compression fracture. 2. Right renal exophytic lesion on the CT lumbar spine. A nonemergent renal ultrasound is recommended. Primary care physician advised to follow. 3. Osteoporosis. 4. Rheumatoid arthritis, on chronic steroids and Humira. 5. Severe osteopenia with moderate lumbar spondylosis. 6. Diabetes mellitus type 2. 7. Hyperlipidemia. 8. Hypertension. 9. Hypothyroidism. 10. Degenerative joint disease. 11. Hyponatremia. 12. Urinary retention, improved. 13. Quinolone allergy. PLAN: Plan of care was discussed with the patient in detail. She stated understanding. Job ID: [id number]
== END 2019-04-16 14:59 | disposition swing bed (61) | DRG 543 ==
LOC: ERS 14:40 → T4-B 17:03
PROVIDERS: ADMIT Internal Medicine; ATTEND Internal Medicine
DX: M48.56XA Collapsed vertebra, not elsewhere classified, lumbar region, initial encounter for fracture (principal); E87.1 Hypo-osmolality and hyponatremia; N28.9 Disorder of kidney and ureter, unspecified; M81.0 Age-related osteoporosis without current pathological fracture; M06.9 Rheumatoid arthritis, unspecified; E11.9 Type 2 diabetes mellitus without complications; E78.5 Hyperlipidemia, unspecified; I10 Essential (primary) hypertension; E03.9 Hypothyroidism, unspecified; M19.90 Unspecified osteoarthritis, unspecified site; R33.9 Retention of urine, unspecified; Z88.1 Allergy status to other antibiotic agents; M85.88 Other specified disorders of bone density and structure, other site; M47.896 Other spondylosis, lumbar region; Z90.49 Acquired absence of other specified parts of digestive tract
CPT/HCPCS: 36415; 36416; 72131; 80048; 80053; 85025; 90471; 90670; G0009; J1650; J1815; J7512; L0639

== ENCOUNTER 2019-05-29 13:03 | Outpatient (CLI) | payer MEDICARE ==
--- NOTE | 2019-05-29 13:57 | RAD ---
LUMBAR SPINE 2 VIEWS: Date: 05/29/2019 HISTORY: Follow-up L1 burst fracture. COMPARISON: 04/11/2019. FINDINGS: There is approximately 50% central vertical height loss of the L5 vertebral body with associate retro pulsion. This shows more marked volume loss and probably more retropulsion than on the prior CT of . Significant bony demineralization. Mild anterolisthesis of L4 on L5. IMPRESSION: Some progressive vertical height loss of L1, as well as some progressive retropulsion, evidence for a burst fracture. Severe bony demineralization. Evidence for a hiatal hernia. Stable anterolisthesis L 4 on L5. POS: TPC
== END 2019-05-29 13:04 | disposition home or self-care (01) ==
LOC: TBSIIMAG 13:03
PROVIDERS: ATTEND Surgery
DX: S32.011D Stable burst fracture of first lumbar vertebra, subsequent encounter for fracture with routine healing (principal); M81.0 Age-related osteoporosis without current pathological fracture; K44.9 Diaphragmatic hernia without obstruction or gangrene; M43.16 Spondylolisthesis, lumbar region
CPT/HCPCS: 72100

== ENCOUNTER 2019-07-10 14:12 | Outpatient (CLI) | payer MEDICARE ==
--- NOTE | 2019-07-10 14:55 | RAD ---
Exam: 2 views lumbar spine Comparison to 09/11/2019 FINDINGS: Diffuse bony mineralization. Stable moderate compression fracture at L1. Stable retropulsio n. 3.3 mm retrolisthesis of L1 upon L2, 1.2 mm of the lateral views of L2 upon L3, 4.4 mm retrolisthesis of L4 upon L5. Utilized bony pelvis and sacrum are grossly unremarkable. Incompletely evaluation internal fixation h ardware projecting the left hip. There is a suture chain in the pelvis. IMPRESSION: Redemonstration of a moderate compression fracture at L1. No significant change in terms of loss of v ertebral body height. This is still a persistent lucency along the superior endplate of the L1 vertebral body.
== END 2019-07-10 14:13 | disposition home or self-care (01) ==
LOC: TBSIIMAG 14:12
PROVIDERS: ATTEND Surgery
DX: M54.5 Low back pain (principal); M48.56XD Collapsed vertebra, not elsewhere classified, lumbar region, subsequent encounter for fracture with routine healing
CPT/HCPCS: 72100

== ENCOUNTER 2019-09-09 11:13 | Outpatient (CLI) | payer MEDICARE ==
--- NOTE | 2019-09-09 12:38 | RAD ---
2 VIEWS LUMBOSACRAL SPINE: Date: 09/09/2019 COMPARISON: 07/10/2019. HISTORY: Lumbar compression fracture. FINDINGS: 2 views of lumbosacral spine show compression fractures of the T12 and L1 vertebral bodies. The T12 v ertebral body demonstrates approximately 75% height loss. The L1 vertebral body demonstrates approxim ately 50% height loss. There is kyphotic curvature surrounding the fractures. The other vertebral bod ies demonstrate normal height without evidence of fracture. There is Grade I anterolisthesis of L4 on L5. Posterior facet arthrosis is seen in the lower lumbosacral spine. IMPRESSION: Compression fractures of T12 and L1. When compared to the prior examination, the T12 vertebral body h as significantly decreased in height. POS: EAA
== END 2019-09-09 11:14 | disposition home or self-care (01) ==
LOC: BICRAD 11:13
PROVIDERS: ATTEND Surgery
DX: M54.5 Low back pain (principal); S32.011A Stable burst fracture of first lumbar vertebra, initial encounter for closed fracture; S22.089A Unspecified fracture of T11-T12 vertebra, initial encounter for closed fracture
CPT/HCPCS: 72100

== ENCOUNTER 2019-12-07 14:05 | Inpatient (IN) | payer MEDICARE, OTHER ==
[2019-12-07] MEDS ORDERED: Fentanyl 100 MCG/2 ML VIAL ONE (15:18)
[2019-12-07 15:53] LABS: #Eosinphils 0.1 thou/uL (0.0-0.7); #Lymphocytes 1.6 thou/uL (1.20-3.40); #Neutrophils 7.6 thou/uL (1.40-6.50); %Basophils 0.4 % (0.0-1.0); %Eosinophils 0.9 % (0.0-10.0); %Lymphocytes 15.8 % (21.0-51.0); %Monocytes 9.8 % (0.0-10.0); Hemoglobin 11.1 g/dL (12.0-16.0); Mean Corpuscular HGB CONC 34.3 g/dL (32.0-36.0); Mean Corpuscular Hemoglobin 32.7 pg (27.0-31.0); Mean Corpuscular Volume 95.1 fL (78.0-98.0); Platelet Count 213 thou/uL (130-400); RBC Distribution Width 13.7 % (11.5-14.5); Red Blood Cell (RBC) Count 3.39 mill/uL (4.20-5.40); White Blood Cell (WBC) Count 10.4 thou/uL (4.8-10.8)
[2019-12-07] MEDS ORDERED: Midazolam HCl 2 mg/2 ml Vial ONE (15:57)
[2019-12-07 16:00] LABS: PTT 25.8 sec (22.9-36.1); Prothrombin Time 13.5 sec (12.0-14.7)
--- NOTE | 2019-12-07 16:02 | RAD ---
LEFT KNEE FOUR VIEWS: History: Left knee pain, deformity. FINDINGS: Metal plate and screws stabilize the distal femur. There is a markedly anteriorly angulated irregular fracture of the proximal tibia with marked foreshortening and anterior angulation and severe resulta nt deformity. IMPRESSION: Very markedly anteriorly angulated comminuted foreshortened proximal tibial fracture. Severe bony dem ineralization. Metal plate and screw stabilizing the distal femur. No significant suprapatellar reces s joint effusion. POS: OFF
[2019-12-07 16:15] LABS: ALT (SGPT) 19 U/L (8-55); AST (SGOT) 25 U/L (5-34); Albumin 3.8 g/dL (3.4-4.8); Alkaline Phosphatase 60 U/L (40-110); Anion Gap 15 mmol/L (10-20); BUN (Urea Nitrogen) 24 mg/dL (9.8-20.1); Bilirubin, Total 0.6 mg/dL (0.2-1.2); Calc. Creatinine Clearance 0 mL/min (70-130); Carbon Dioxide 22 mmol/L (23-31); Chloride 102 mmol/L (98-107); Estimated GFR-MDRD 63; Globulin 2.6 g/dL (2.4-3.5); Glucose 152 mg/dL (83-110); Potassium 4.6 mmol/L (3.5-5.1); Protein, Total 6.4 g/dL (6.0-8.3); Sodium 134 mmol/L (136-145)
[2019-12-07 16:37] LABS: CKMB 5.7 ng/mL (0-6.6)
[2019-12-07] MEDS ORDERED: Morphine 4 MG/ML VIAL ONE (16:57)
[2019-12-07] MEDS ORDERED: Acetaminophen 500 MG TAB ONE (16:58)
[2019-12-07 17:07] LABS: Magnesium 1.4 mg/dL (1.6-2.6); Phosphorus 3.2 mg/dL (2.3-4.7)
--- NOTE | 2019-12-07 17:12 | RAD ---
CHEST ONE VIEW PORTABLE: History: Pre-operative evaluation. Knee pain and deformity. Comparison: 02-19-18 FINDINGS: Moderate sized hiatal hernia. Linear, interstitial, and reticular nodular parenchymal changes noted b ilaterally, particularly in the mid and lower lung zones, some are more peripherally oriented with li ttle change, possibly slightly progressive when compared to the prior study with an appearance most c onsistent with that of nonspecific interstitial fibrosis. No confluent pneumonia or overt edema. No p leural effusion. IMPRESSION: Moderate sized hiatal hernia. Bilateral interstitial and reticular nodular lung parenchymal changes, most concerning for nonspecific chronic interstitial fibrosis. No significant acute process. POS: RRE
[2019-12-07] MEDS ORDERED: Dextrose 5% in Water 1,000 ML IV PRN (17:19)
[2019-12-07] MEDS ORDERED: hydrALAZINE 20 MG/ML VIAL SLOW IVP PRN (17:19)
[2019-12-07] MEDS ORDERED: Dextrose 50% Abboject 50 ML SYRINGE SLOW IVP PRN (17:19)
[2019-12-07] MEDS ORDERED: Ondansetron PF 4 MG/2 ML Vial IVP PRN (17:19)
--- NOTE | 2019-12-07 17:19 | RAD ---
LEFT KNEE TWO VIEWS: History: Post reduction. Comparison: 12-07-2019 FINDINGS: There is has been slight improvement in position and alignment of the comminuted foreshortened distal tibial fracture as well as a probable associated distal fibular fracture. There is still marked ante rior angulation and anterior foreshortening. IMPRESSION: Some improvement in position and alignment of the markedly comminuted proximal tibial fracture but wi th some persistent anterior angulation and severe foreshortening as well as evidence for a proximal f ibular fracture. POS: RRE
[2019-12-07] MEDS ORDERED: traMADol HCl 50 MG TAB PO PRN (17:25)
[2019-12-07 17:27] LABS: Bilirubin Negative (Negative); Blood, Urine Negative (Negative); Clarity Clear (Clear); Glucose, Urine (Dipstick) Normal (Negative); Ketone, Urine Negative (Negative); Leukocyte Negative Leu/uL (Negative); Nitrite Negative (Negative); Protein, Urine (Dipstick) Negative (Neg-Trace); Specific Gravity, Urine 1.017 (1.002-1.036); Urobilinogen Normal mg/dL (Less than 2)
[2019-12-07] MEDS ORDERED: Sodium Chloride 0.9% 1,000 ML IV SCH ×2 (17:30)
[2019-12-07] MEDS ORDERED: Magnesium 2 GM/50 ML 3 GM in Premix Bag 1 BAG IVPB SCH (17:30)
[2019-12-07] MEDS ORDERED: Magnesium Sulfate 3 GM in Sodium Chloride 0.9% 100 ML IVPB SCH (17:45)
[2019-12-07] MEDS ORDERED: Sodium Phosphate 15 MMOL in Sodium Chloride 0.9% 250 ML 250 ML IVPB SCH (17:45)
--- NOTE | 2019-12-07 18:06 | RAD ---
AP PELVIS ONE VIEW: History: Injury from a fall. FINDINGS: Left hip fixation nail. Arthrosis changes in both hip joints and both SI joints. Bony demineralizatio n. Healed left superior and inferior and ischeal pubic rami fractures. Impression: No evidence for acute fracture or dislocation. POS: RRE
--- NOTE | 2019-12-07 18:47 | HP ---
TRAUMA SURGEON: Dr. Galicia. CONSULTING PHYSICIAN: Dr. Wilson. HISTORY OF PRESENT ILLNESS: The patient is a 79-year-old female, who presented to the emergency department after a fall at home. The patient reported that her recent dosing of gabapentin was decreased because it was making her feel kind of dizzy. She reports that she took gabapentin earlier and was in the bathroom with her walker when she got tangled up in it and subsequently fell onto her buttocks. She presented with left proximal tibial trauma and we were asked to admit the patient. Upon my evaluation, the patient had a knee immobilizer in place and was complaining of pain. She denies loss of consciousness. She denies any C-spine pain. Denies numbness and tingling in her bilateral upper and lower extremities. States she was having only pain to that left knee. Denies chest pain, shortness of breath, nausea, vomiting, or numbness and tingling in her bilateral upper and lower extremities. Denies anticoagulation use. PAST MEDICAL HISTORY: Rheumatoid arthritis; diabetes; multiple thoracic and lumbar spinal fractures, most recently in the past 6 months, for which she has not had any surgical intervention; hypertension; hyperlipidemia; hypothyroidism; degenerative joint disease; hyponatremia; urinary retention; pulmonary fibrosis, which is likely secondary to rheumatoid arthritis; latent tuberculosis; history of ischemic colitis, status post partial colon resection; osteoporosis. PAST SURGICAL HISTORY: Tonsillectomy, left femur fracture surgery x2, ankle surgery, thyroid biopsy, and partial colectomy due to ischemic colitis. SOCIAL HISTORY: The patient denies tobacco, drug, or alcohol use. She lives at home with her . MEDICATIONS: The patient could not remember her medications. We will contact the [facility] for her med rec. ALLERGIES: CIPRO AND LEVOFLOXACIN. PHYSICAL EXAMINATION: VITAL SIGNS: Temperature 99.6, pulse 101, respirations 18, oxygen saturation 99% on 1 L nasal cannula, blood pressure 126/71. PRIMARY SURVEY: Airway intact. Adequate breath sounds bilaterally. 2+ pulses in bilateral radials, femorals, and DPs. GCS 15. Gross motor and sensation are intact. No lacerations or bruising. There is obvious deformity to the left proximal tibia. SECONDARY SURVEY: HEAD: Normocephalic and atraumatic. No gross palpable skull deformities. FACE: No signs of trauma. C-SPINE: No step-offs or deformities. Nontender. C-collar not in place. CHEST: Nontender. No crepitus. No abrasions or ecchymosis. Equal chest movement. ABDOMEN: Soft, nontender, nondistended. PELVIS: Stable to palpation, nontender. No abrasions or ecchymosis noted. RECTAL: Deferred. GENITOURINARY: Deferred. EXTREMITIES: There is obvious deformity of the left proximal tibia. No abrasions or ecchymosis noted. 2+ pulses in bilateral radials, femorals, and DPs. BACK/SPINE: No step-offs or deformities or tenderness to palpation of the thoracic or lumbar spine. No abrasions or ecchymosis noted. 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 LABORATORY FINDINGS: White count 10.9, hemoglobin 11.1, hematocrit 32.2, platelets 213. INR 1.0. Sodium 134, potassium 4.6, chloride 102, bicarb 22, BUN 24, creatinine 0.87, glucose 159, phosphorus 3.2, magnesium 1.9. Total bilirubin 0.6, AST 25, ALT 19, alkaline phosphatase 60. Troponin 0.048. UA is negative. DIAGNOSTIC FINDINGS: X-ray of the left knee demonstrates very markedly anterior angulated comminuted foreshortened proximal tibial fracture, severe bone demineralization, metal plate and screws stabilizing the distal femur, no significant suprapatellar recent joint effusion. Chest x-ray demonstrates moderate size hiatal hernia, bilateral interstitial and reticular nodule, lung parenchymal changes most concerning for nonspecific chronic interstitial fibrosis, no significant acute process. X-ray of the left knee demonstrates some improvement in positioning and alignment of the markedly comminuted proximal tibial fracture, but with some persistent anterior angulation and severe foreshortening as well as evidence of proximal tibial fracture. ASSESSMENT: 1. Status post mechanical fall from standing. 2. Left proximal tibial fracture. 3. Troponinemia, likely secondary to demand ischemia caused by acute traumatic pain. 4. History of rheumatoid arthritis, diabetes, hyperlipidemia, hypertension, hypothyroidism, degenerative joint disease, chronic hyponatremia, urinary retention, pulmonary fibrosis, latent tuberculosis, history of ischemic colitis, history thoracic and lumbar spine fractures. PLAN: The patient will be admitted to the Trauma Service. Dr. Wilson will evaluate the patient tomorrow. She will have a diabetic diet, insulin sliding scale. She receives some IV fluid for total of 1 L p.o. and IV pain medications both scheduled and p.r.n. Bedrest until evaluated by PT. N.p.o. at midnight in case they plan to take her to the OR. She will likely need placement at acute rehab facility once the plan is further dictated by Ortho. This patient was discussed with Dr. Galicia before this dictation. Job ID: [id number]
[2019-12-07 19:14] VITALS: BMI 26.2
[2019-12-07] MEDS: Acetaminophen 500 MG TAB PO SCH (20:03)
[2019-12-07] MEDS: Gabapentin 100 MG CAP PO SCH (20:03)
[2019-12-07] MEDS: Senokot S 8.6-50 MG TAB PO SCH (20:04)
[2019-12-07] MEDS ORDERED: Famotidine/PF 20 mg/2ml Vial SLOW IVP SCH (21:00)
[2019-12-07] MEDS: traMADol HCl 50 MG TAB PO PRN (21:26)
[2019-12-07] MEDS: Ibuprofen 200 MG TAB PO SCH (21:26)
[2019-12-07] MEDS: Insulin Regular 300 UNITS/3 ML VIAL SC PRN (21:29)
[2019-12-07] MEDS: Morphine 2 MG/ML VIAL SLOW IVP PRN (21:35)
[2019-12-07 21:45] LABS: Troponin I 0.042 ng/mL (< 0.028)
--- NOTE | 2019-12-08 00:48 | PRG ---
DATE OF SERVICE: 12/07/2019 The patient is currently on the surgical floor. She was admitted today, status post ground level fall when she sustained a left proximal tibial fracture. She was also noted to have elevated troponin that her repeat had remained indeterminate and is downward trending. She likely had demand ischemia. The patient was evaluated by Dr. Wilson this evening and he reports that he is going to take her to the operating room tomorrow at minimum a closed reduction and splinting and we will decide if percutaneous pinning or open reduction and internal fixation is required. The patient reports that she is tolerating a diet. Her pain is controlled and we will discuss placement postop. Job ID: [id number]
[2019-12-08] MEDS: Acetaminophen 500 MG TAB PO SCH ×5 (00:55→23:17)
[2019-12-08 05:48] LABS: #Eosinphils 0.2 thou/uL (0.0-0.7); #Lymphocytes 1.5 thou/uL (1.20-3.40); #Monocytes 1.1 thou/uL (0.11-0.59); #Neutrophils 5.8 thou/uL (1.40-6.50); %Basophils 0.3 % (0.0-1.0); %Eosinophils 2.3 % (0.0-10.0); %Lymphocytes 17.6 % (21.0-51.0); %Monocytes 12.5 % (0.0-10.0); %Neutrophils 67.1 % (42.0-75.0); Hemoglobin 9.6 g/dL (12.0-16.0); Mean Corpuscular HGB CONC 34.4 g/dL (32.0-36.0); Mean Corpuscular Hemoglobin 33.5 pg (27.0-31.0); Mean Corpuscular Volume 97.3 fL (78.0-98.0); Mean Platelet Volume 7.8 fL (7.4-10.4); Platelet Count 185 thou/uL (130-400); RBC Distribution Width 13.9 % (11.5-14.5); Red Blood Cell (RBC) Count 2.88 mill/uL (4.20-5.40); White Blood Cell (WBC) Count 8.6 thou/uL (4.8-10.8)
[2019-12-08 06:44] LABS: Anion Gap 16 mmol/L (10-20); BUN (Urea Nitrogen) 29 mg/dL (9.8-20.1); Calc. Creatinine Clearance 41 mL/min (70-130); Calcium 8.6 mg/dL (7.8-10.44); Carbon Dioxide 25 mmol/L (23-31); Chloride 100 mmol/L (98-107); Estimated GFR-MDRD 42; Glucose 157 mg/dL (83-110); Magnesium 2.5 mg/dL (1.6-2.6); Potassium 4.5 mmol/L (3.5-5.1); Sodium 136 mmol/L (136-145)
[2019-12-08] MEDS: Ibuprofen 200 MG TAB PO SCH (06:49)
--- NOTE | 2019-12-08 08:14 | CON ---
DATE OF CONSULTATION: 12/07/2019 REQUESTING PHYSICIAN: Julian Galicia MD CONSULTING PHYSICIAN: Dr. Ashvin Wilson. REASON FOR CONSULTATION: Left tibial plateau fracture. BRIEF CLINICAL HISTORY: Neris is a 79-year-old female, who was brought to [facility] via EMS after she had a fall at home. She tells me that her knee buckled and then she fell. When she was able to recover, she noticed that she had a deformity in her left leg. Her past medical history is significant for rheumatoid arthritis, diabetes, and she has had compression fractures recently in the last 6 months, and she suffers from osteoporosis and osteopenia. Our service has been consulted for the tibia fracture which brought her in today. PHYSICAL EXAMINATION: The patient is lying comfortably in the hospital [facility]. She does have a deformity in the left lower extremity below the knee with flexion and valgus deformity. She is neurovascularly intact. She has good warm skin. There are no breaks in the skin in and around the fracture site. This appears to be a very low energy pattern. IMAGING STUDIES: Four views left knee demonstrates her to have a tibial plateau fracture with significant osteopenia in and around the metaphyseal bone. It is in flexion and posteriorly subluxed. There is prior hardware consistent with a distal femoral metaphyseal fracture. This she has had repaired in the past. IMPRESSION: 1. Left low energy proximal tibial metaphyseal fracture. 2. Osteopenia, osteoporosis. 3. Diabetes type 2. 4. Rheumatoid arthritis. PLAN: 1. Closed reduction was performed with the emergency room physician in the emergency room. 2. Long-leg immobilizer would be placed. 3. We will discuss with Dr. Wilson the possibility of either open reduction and internal fixation for closed treatment. For now, patient will be admitted by the Trauma team and we will give consideration to surgery tomorrow. Job ID: [id number]
[2019-12-08] MEDS ORDERED: Sodium Chloride 0.9% 1,000 ML IV SCH (08:30)
[2019-12-08] MEDS ORDERED: CEFAZOLIN 2 GM in Premix Bag 1 BAG IVPB SCH (09:00)
[2019-12-08] MEDS ORDERED: Midazolam HCl 2 mg/2 ml Vial ONE (09:19)
[2019-12-08] MEDS ORDERED: Phenylephrine 10 MG/ML VIAL ONE (09:19)
[2019-12-08] MEDS ORDERED: Fentanyl 100 MCG/2 ML VIAL ONE (09:19)
[2019-12-08] MEDS ORDERED: PROPOFOL 40 ML ONE (09:19)
[2019-12-08] MEDS ORDERED: Ketamine 50 MG/ML (10ML VIAL) ONE (09:19)
--- NOTE | 2019-12-08 09:21 | PRG ---
DATE OF SERVICE: 12/08/2019 Ms. Bolton is seen and examined. Agree with history and physical by Skylar Bledsoe trauma PA. Ms. Bolton has no complaints this morning. She is on the schedule for closed reduction of left tibia fracture in the OR with Dr. Wilson. Trauma will continue to manage. Job ID: [id number]
[2019-12-08] MEDS ORDERED: EPHEDRINE 25 MG/5 ML SYRINGE ONE (10:21)
[2019-12-08] MEDS ORDERED: PHENYLEPHRINE-NS 100 MCG/ML 10 ML SYRINGE ONE (10:21)
--- NOTE | 2019-12-08 10:33 | OP ---
DATE OF PROCEDURE: 12/08/2019 PROCEDURE PERFORMED: Closed reduction and long-leg splint application to left proximal tibia fracture. PREOPERATIVE DIAGNOSIS: Left tibial plateau fracture. POSTOPERATIVE DIAGNOSIS: Left tibial plateau fracture. COMPLICATIONS: None. ESTIMATED BLOOD LOSS: None. PATENT COUNSEL: Jessica Garcia. IMPLANTS: None. INDICATIONS: Ms. Bolton is a 79-year-old female, who has been indicated for closed reduction and splint placement in the operating room to restore anatomic alignment to her proximal tibia. The patient has a severe proximal tibial plateau fracture with displacement. She has severe osteopenia with history of multiple fractures. She has had a distal femur fracture in the past regarding this specific knee. She has a large amount of soft tissue swelling and her bone quality as well as soft tissue are not amenable to surgical fixation. She is agreeable to closed reduction and splinting. She is aware this will require at least 6 weeks of immobilization in a splint or a cast and nonweightbearing for a prolonged period of time. DESCRIPTION OF PROCEDURE: Ms. Bolton was identified in the preoperative holding area. Her correct extremity was marked. She was carried to the operating room. She was positioned supine. Sedation was given. We evaluated the left leg under intraoperative x-ray. At this point, we applied traction as well as a posterior to anterior force on the tibia to reduce the fracture. We took AP and lateral views. We were able to reduce the tibia back into a more anatomic position. We at this point applied a long-leg splint to the leg. We pulled traction as we applied the splint and held the knee in a 30-degree flexion position. We applied a posterior slab as well as a medial and lateral struts. At this point, the patient was awoken and taken to the recovery room. There were no complications. She tolerated the procedure well. Job ID: [id number]
[2019-12-08] MEDS ORDERED: Hydrocortisone Sod Succ/PF 100 mg/2 ml Vial IVP SCH ×3 (11:00→18:00)
[2019-12-08] MEDS: Gabapentin 100 MG CAP PO SCH ×3 (11:56→20:33)
[2019-12-08] MEDS: Levothyroxine Sodium 50 MCG TAB PO SCH (12:01)
[2019-12-08] MEDS: Polyethylene Glycol 3350 17 GM Packet PO SCH (12:03)
[2019-12-08] MEDS: Senokot S 8.6-50 MG TAB PO SCH ×2 (12:04→20:33)
[2019-12-08 12:29] LABS: SARS-CoV-2 MS2 Positive; SARS-CoV-2 N Gene Negative; SARS-CoV-2 S Gene Negative; SARS-CoV-2 by NAA Not Detected (NotDetected); SARS-CoV-2 orf1ab Negative
[2019-12-08] MEDS: Insulin Regular 300 UNITS/3 ML VIAL SC PRN ×3 (12:58→20:38)
--- NOTE | 2019-12-08 14:09 | PRG ---
DATE OF SERVICE: 12/08/2019 SUBJECTIVE: The patient was seen this morning during rounds. She is postoperative day 0 after fixation of a left proximal tibial fracture by Dr. Wilson. Upon my evaluation, her pain was well controlled. Her was at the bedside and wanted to make sure that we understood the patient has recent spinal fractures. There is no brace that is necessary at this time. OBJECTIVE: VITAL SIGNS: Temperature 97.4, pulse 89, respirations 16, oxygen saturation 96% on 2 L nasal cannula, and blood pressure 109/66. GENERAL: Well-appearing, elderly female, lying in bed with no signs of acute distress. PULMONARY: Equal chest rise and fall. No signs of acute respiratory distress. CARDIAC: Regular rate and rhythm. GI: Abdomen is soft, nontender, nondistended. EXTREMITIES: 2+ pulses in all extremities. Gross motor and sensation are intact. No significant swelling noted. Postop dressing in place in the left lower extremity. NEUROLOGIC: GCS is 15. LABORATORY FINDINGS: White count 8.6, hemoglobin 9.6, hematocrit 28.0, platelets 185. Sodium 136, potassium 4.5, chloride 100, bicarb 25, BUN 29, creatinine 1.29, glucose 157, phosphorus 7.0, magnesium 2.5. Troponin 0.042. Cortisol 12.0. DIAGNOSTIC FINDINGS: There are no new diagnostic findings to report. ASSESSMENT: 1. Status post ground level fall. 2. Left proximal tibial fracture, status post repair. 3. Demand ischemia, likely due to pain and dehydration. 4. Acute kidney injury. 5. Acute adrenal insufficiency. 6. Recent history of spinal fractures. 7. History of rheumatoid arthritis, diabetes, hypertension, hyperlipidemia, ischemic colitis, hyponatremia, degenerative joint disease, and recent spinal fractures. PLAN: Continue diabetic diet. The patient is to receive normal saline at 120 an hour for a total of 1 L. Continue Borrero for now and watch urinary output. Restart home medications including rheumatoid arthritis home medication. The patient to receive hydrocortisone for acute adrenal insufficiency. Repeat blood work this afternoon to re-evaluate renal function. Discontinue ibuprofen due to renal dysfunction. This patient has been discussed with Dr. Todd before this dictation. Job ID: [id number]
[2019-12-08 18:09] LABS: Hemoglobin 8.2 g/dL (12.0-16.0); Mean Corpuscular HGB CONC 34.8 g/dL (32.0-36.0); Mean Corpuscular Hemoglobin 33.5 pg (27.0-31.0); Mean Corpuscular Volume 96.3 fL (78.0-98.0); Mean Platelet Volume 8.2 fL (7.4-10.4); Platelet Count 146 thou/uL (130-400); RBC Distribution Width 13.6 % (11.5-14.5); Red Blood Cell (RBC) Count 2.44 mill/uL (4.20-5.40); White Blood Cell (WBC) Count 7.9 thou/uL (4.8-10.8)
[2019-12-08 18:35] LABS: Anion Gap 13 mmol/L (10-20); BUN (Urea Nitrogen) 26 mg/dL (9.8-20.1); Calc. Creatinine Clearance 45 mL/min (70-130); Calcium 8.3 mg/dL (7.8-10.44); Carbon Dioxide 22 mmol/L (23-31); Chloride 100 mmol/L (98-107); Estimated GFR-MDRD 47; Glucose 300 mg/dL (83-110); Magnesium 1.9 mg/dL (1.6-2.6); Phosphorus 3.6 mg/dL (2.3-4.7); Potassium 4.8 mmol/L (3.5-5.1); Sodium 130 mmol/L (136-145)
[2019-12-08] MEDS: Simvastatin 10 MG TAB PO SCH (18:46)
[2019-12-08] MEDS: UPADACITINIB 15 MG PO SCH (18:47)
--- NOTE | 2019-12-08 19:06 | RAD ---
LEFT KNEE TWO VIEWS: Two portable fluoroscopic spot images demonstrate metal plate and screw stabilizing the distal femur. There is some improved position and alignment of the markedly comminuted proximal tibial fracture. T here is also evidence for a proximal fibular fracture. IMPRESSION: Improved position and alignment from 12-07-2019 exam. POS: [facility]
[2019-12-08] MEDS ORDERED: Magnesium 2 GM/50 ML 2 GM in Premix Bag 1 BAG IVPB SCH (20:15)
[2019-12-08] MEDS: Sodium Chloride 1 GM TAB PO SCH (20:32)
[2019-12-08] MEDS: Citalopram 20 MG TAB PO SCH (20:33)
[2019-12-08] MEDS ORDERED: Famotidine/PF 20 mg/2ml Vial SLOW IVP SCH (21:00)
[2019-12-08] MEDS: Morphine 2 MG/ML VIAL SLOW IVP PRN (22:04)
[2019-12-08] MEDS: Cyclobenzaprine 10 MG TAB PO PRN (22:04)
[2019-12-08] MEDS: Hydrocortisone Sod Succ/PF 100 mg/2 ml Vial IVP SCH (23:16)
[2019-12-08] MEDS: traMADol HCl 50 MG TAB PO PRN (23:24)
[2019-12-09] MEDS: Morphine 2 MG/ML VIAL SLOW IVP PRN ×2 (00:13→22:43)
[2019-12-09] MEDS: Hydrocortisone Sod Succ/PF 100 mg/2 ml Vial IVP SCH ×4 (05:21→23:23)
[2019-12-09] MEDS: Levothyroxine Sodium 50 MCG TAB PO SCH (05:21)
[2019-12-09] MEDS: Acetaminophen 500 MG TAB PO SCH ×4 (05:21→23:23)
[2019-12-09] MEDS: Insulin Regular 300 UNITS/3 ML VIAL SC PRN ×4 (05:31→21:49)
[2019-12-09 05:37] LABS: #Eosinphils 0.1 thou/uL (0.0-0.7); #Lymphocytes 0.8 thou/uL (1.20-3.40); #Monocytes 0.7 thou/uL (0.11-0.59); #Neutrophils 5.7 thou/uL (1.40-6.50); %Basophils 0.1 % (0.0-1.0); %Eosinophils 0.8 % (0.0-10.0); %Lymphocytes 11.1 % (21.0-51.0); %Monocytes 9.7 % (0.0-10.0); %Neutrophils 78.4 % (42.0-75.0); Hemoglobin 7.2 g/dL (12.0-16.0); Mean Corpuscular HGB CONC 33.5 g/dL (32.0-36.0); Mean Corpuscular Hemoglobin 32.2 pg (27.0-31.0); Mean Corpuscular Volume 96.1 fL (78.0-98.0); Mean Platelet Volume 8.2 fL (7.4-10.4); Platelet Count 151 thou/uL (130-400); RBC Distribution Width 13.4 % (11.5-14.5); Red Blood Cell (RBC) Count 2.23 mill/uL (4.20-5.40); White Blood Cell (WBC) Count 7.3 thou/uL (4.8-10.8)
[2019-12-09 06:03] LABS: Anion Gap 12 mmol/L (10-20); BUN (Urea Nitrogen) 23 mg/dL (9.8-20.1); Calc. Creatinine Clearance 59 mL/min (70-130); Calcium 8.4 mg/dL (7.8-10.44); Carbon Dioxide 25 mmol/L (23-31); Chloride 102 mmol/L (98-107); Estimated GFR-MDRD 64; Glucose 205 mg/dL (83-110); Magnesium 2.3 mg/dL (1.6-2.6); Phosphorus 3.1 mg/dL (2.3-4.7); Potassium 4.4 mmol/L (3.5-5.1); Sodium 135 mmol/L (136-145)
[2019-12-09] MEDS ORDERED: PHOS-NAK 1 PKT PACK PO SCH (08:00)
[2019-12-09] MEDS ORDERED: Insulin Glargine 40 UNITS in Pre-Filled Syringe 1 EACH SC SCH (09:00)
[2019-12-09] MEDS: UPADACITINIB 15 MG PO SCH (09:04)
[2019-12-09] MEDS: Aspirin 81 mg Enteric Coated Tablet PO SCH ×2 (09:04→21:39)
[2019-12-09] MEDS: Sodium Chloride 1 GM TAB PO SCH ×2 (09:04→21:39)
[2019-12-09] MEDS: Senokot S 8.6-50 MG TAB PO SCH ×2 (09:04→21:40)
[2019-12-09] MEDS: Gabapentin 100 MG CAP PO SCH ×3 (09:04→21:39)
[2019-12-09] MEDS: Polyethylene Glycol 3350 17 GM Packet PO SCH (09:05)
[2019-12-09] MEDS: traMADol HCl 50 MG TAB PO PRN (09:12)
--- NOTE | 2019-12-09 11:17 | RAD ---
3 views of the right foot: 12/09/2019 COMPARISON: None available HISTORY: Pain, trauma FINDINGS: The bones are demineralized. There is postoperative hardware associated with the distal fibula and medial malleolus, incompletely assessed on this exam. No acute fracture or dislocation is appreciated on this examination. There is significant dorsal soft tissue swelling overlying the midfoot. IMPRESSION: Soft tissue swelling. Osteopenia. Recommend follow-up in 7-10 days if symptoms persist.
--- NOTE | 2019-12-09 11:25 | RAD ---
Radiograph right ankle 3 views: 12/09/2019 HISTORY: 79-year-old female status post acute right ankle trauma with acute pain findings: ORIF metallic plate and screws from distal diaphysis to lower lateral malleolus of fibula. Single lag screw fixates medial malleolus. No acute displaced fracture identified, but the severe osteopenia could obscure a mildly displaced or nondisplaced fracture. Joint space narrowing with sclerosis and irregularity of talar dome and tibial plafond and. No dislocation. IMPRESSION: 1. Moderate osteoarthrosis of the ankle mortise. 2. Status post open reduction internal fixation of old lateral malleolus fracture, and status post sc rew fixation of old medial malleolus fracture. 3. Severe diffuse osteopenia. 4. No grossly displaced acute fracture identified. 5. If symptoms do not improve, follow-up ankle radiograph recommended in 5-10 days.
--- NOTE | 2019-12-09 11:55 | ULT ---
ULTRASOUND DOPPLER DUPLEX CAROTID: DATE: 12/09/2019 HISTORY: 79-year-old female status post syncope TECHNIQUE: Grayscale, color-flow, and spectral analysis, of major arteries of neck. FINDINGS: RIGHT: Atherosclerotic plaque:Mild at bulb extending into internal carotid. Peak systolic and end diastolic velocities: CCA:160 cm/s, 20 cm/s ICA:105 cm/s, 20 cm/s ICA/CCA ratio:0.6 Vertebral artery flow:Antegrade LEFT: Atherosclerotic plaque:Mild at bulb extending into internal carotid. Some at distal common carotid. Peak systolic and end diastolic velocities: CCA:125 cm/s, 25 cm/s ICA:295 cm/s, 65 cm/s ICA/CCA ratio:2.4 Vertebral artery flow:Antegrade IMPRESSION: 1. Elevated velocities suggestive of 50-69% moderate stenosis in the left internal carotid artery. 2. At least mild atherosclerosis of bilateral proximal internal carotids.
--- NOTE | 2019-12-09 12:25 | PRG ---
DATE OF SERVICE: 12/09/2019 SUBJECTIVE: The patient was comfortable this morning during rounds. She is postop day 1. She had many questions this morning about the events yesterday and showed us a note from her that explained the nature of her fall. OBJECTIVE: VITAL SIGNS: Temperature 98.2, pulse 76, respirations 16, O2 of 95% on room air, blood pressure 114/72. CARDIAC: Regular rate and rhythm. PULMONARY: Clear to auscultation bilaterally. GI: Abdomen; soft, nontender, nondistended. EXTREMITIES: 2+ pedal pulses. However, there is a new right foot swelling. ASSESSMENT: 1. Status post ground level fall, questionable syncope. 2. Left proximal tibial fracture, status post repair. 3. Demand ischemia. 4. Acute kidney injury. 5. Acute adrenal insufficiency. 6. Recurrent history of spinal fractures. 7. History of rheumatoid arthritis, diabetes, hypertension, hyperlipidemia, ischemic colitis, hyponatremia, degenerative joint disease, recent spinal fractures, and pulmonary fibrosis per the patient. PLAN: We will obtain an x-ray of the right foot this morning to evaluate for fracture as a source of her swelling and pain. The document from her indicates that she was calling out for help while standing with her walker, and upon his arrival, she slumped to the ground and he was unable to catch her, and therefore, that was the nature of her fall. He believes she may have had a stroke or passed out. She does not have cerebellar signs or symptoms or neurological deficits suggestive of stroke. However, her story is consistent with syncope. We will proceed with a syncopal episode workup today including ordering an echo, EKG, carotid ultrasound, orthostatic vital signs, and an MRI of the brain. She is postop day #1 from a closed reduction and long leg splint. We will see how she does with physical therapy and begin discharge planning for rehab versus prison facility as she is probably not strong enough to be discharged to home safely. The patient was seen and evaluated by Dr. Todd. Job ID: [id number]
[2019-12-09] MEDS: Simvastatin 10 MG TAB PO SCH (17:13)
--- NOTE | 2019-12-09 18:24 | CCLSPC ---
PROCEDURE: Echocardiogram. INDICATION FOR PROCEDURE: A 79-year-old female with syncope. IMPRESSION: 1. Normal left ventricular systolic function. Ejection fraction is estimated at 55-60%. 2. Mild tricuspid valve regurgitation. 3. Borderline ventricular dilatation. 4. Mild aortic valve sclerosis. 5. Normal left atrial size. 6. Trace pulmonary valve regurgitation. 7. Trace mitral valve regurgitation. 8. Normal RV size and function. Job ID: [id number] MTDD
[2019-12-09] MEDS ORDERED: Non-Formulary Item 1 EACH (Insulin Degludec [Tresiba Flextouch U-100] 40 UNIT) SQ SCH (21:00)
[2019-12-09] MEDS: Citalopram 20 MG TAB PO SCH (21:39)
[2019-12-09] MEDS: Insulin Glargine 40 UNITS in Pre-Filled Syringe 1 EACH SC SCH (21:40)
[2019-12-09] MEDS ORDERED: Ferrous Sulfate 325 MG TAB PO SCH (22:00)
[2019-12-09] MEDS ORDERED: Ascorbic Acid 500 mg Chewable Tablet PO SCH (22:00)
[2019-12-09] MEDS: Cyclobenzaprine 10 MG TAB PO PRN (22:38)
--- NOTE | 2019-12-10 00:35 | PRG ---
DATE OF SERVICE: 12/09/2019 SUBJECTIVE: The patient was seen during evening rounds, awake, alert, in no distress. The patient reports that her pain is well controlled. The patient is postop day #1 status post repair of her proximal tibial fracture. The patient is tolerating her diet and drinking fluids. OBJECTIVE: VITALS: Stable, afebrile. Urinary output is adequate for patient's age and weight. PLAN: Continue supportive care and pain regimen. Continue diabetic diet as tolerated. We will add iron and vitamin C with meals for postop anemia. Pending echo results. We will discontinue the patient's Borrero catheter in the morning. If the patient's hemoglobin and hematocrit are stable, we will start patient on chemical VTE prophylaxis. Plan was discussed with the patient who agrees. Job ID: [id number]
[2019-12-10] MEDS: Hydrocortisone Sod Succ/PF 100 mg/2 ml Vial IVP SCH ×3 (05:31→17:09)
[2019-12-10] MEDS: Acetaminophen 500 MG TAB PO SCH ×3 (05:32→17:10)
[2019-12-10] MEDS: Levothyroxine Sodium 50 MCG TAB PO SCH (05:32)
[2019-12-10] MEDS: Insulin Regular 300 UNITS/3 ML VIAL SC PRN ×3 (05:32→17:08)
[2019-12-10 05:35] LABS: #Eosinphils 0.1 thou/uL (0.0-0.7); #Lymphocytes 1.1 thou/uL (1.20-3.40); #Monocytes 0.6 thou/uL (0.11-0.59); #Neutrophils 4.9 thou/uL (1.40-6.50); %Basophils 0.2 % (0.0-1.0); %Eosinophils 0.9 % (0.0-10.0); %Lymphocytes 16.4 % (21.0-51.0); %Monocytes 9.6 % (0.0-10.0); %Neutrophils 72.9 % (42.0-75.0); Hemoglobin 6.5 g/dL (12.0-16.0); Mean Corpuscular HGB CONC 33.4 g/dL (32.0-36.0); Mean Corpuscular Hemoglobin 32.7 pg (27.0-31.0); Mean Corpuscular Volume 97.6 fL (78.0-98.0); Mean Platelet Volume 8.4 fL (7.4-10.4); Platelet Count 146 thou/uL (130-400); RBC Distribution Width 13.5 % (11.5-14.5); Red Blood Cell (RBC) Count 1.99 mill/uL (4.20-5.40); White Blood Cell (WBC) Count 6.7 thou/uL (4.8-10.8)
[2019-12-10 06:02] LABS: Anion Gap 13 mmol/L (10-20); BUN (Urea Nitrogen) 30 mg/dL (9.8-20.1); Calc. Creatinine Clearance 61 mL/min (70-130); Calcium 8.5 mg/dL (7.8-10.44); Carbon Dioxide 25 mmol/L (23-31); Chloride 104 mmol/L (98-107); Estimated GFR-MDRD 66; Glucose 175 mg/dL (83-110); Magnesium 2.1 mg/dL (1.6-2.6); Phosphorus 2.5 mg/dL (2.3-4.7); Potassium 4.5 mmol/L (3.5-5.1); Sodium 137 mmol/L (136-145)
[2019-12-10 07:11] LABS: Hemoglobin 6.7 g/dL (12.0-16.0); Mean Corpuscular HGB CONC 34.2 g/dL (32.0-36.0); Mean Corpuscular Hemoglobin 32.9 pg (27.0-31.0); Mean Corpuscular Volume 96.2 fL (78.0-98.0); Mean Platelet Volume 8.1 fL (7.4-10.4); Platelet Count 139 thou/uL (130-400); RBC Distribution Width 13.4 % (11.5-14.5); Red Blood Cell (RBC) Count 2.03 mill/uL (4.20-5.40); White Blood Cell (WBC) Count 6.9 thou/uL (4.8-10.8)
[2019-12-10] MEDS: Ascorbic Acid 500 mg Chewable Tablet PO SCH ×2 (08:36→19:29)
[2019-12-10] MEDS: Gabapentin 100 MG CAP PO SCH ×3 (08:36→19:29)
[2019-12-10] MEDS: Ferrous Sulfate 325 MG TAB PO SCH ×2 (08:37→17:10)
[2019-12-10] MEDS: Aspirin 81 mg Enteric Coated Tablet PO SCH ×2 (08:37→19:29)
[2019-12-10] MEDS: Sodium Chloride 1 GM TAB PO SCH ×2 (08:37→19:31)
[2019-12-10] MEDS: traMADol HCl 50 MG TAB PO PRN ×2 (08:37→21:53)
[2019-12-10] MEDS: UPADACITINIB 15 MG PO SCH (08:39)
[2019-12-10] MEDS: Polyethylene Glycol 3350 17 GM Packet PO SCH (08:40)
[2019-12-10] MEDS: Senokot S 8.6-50 MG TAB PO SCH ×2 (08:40→19:29)
[2019-12-10] MEDS: Simvastatin 10 MG TAB PO SCH (17:09)
[2019-12-10] MEDS: Cyclobenzaprine 10 MG TAB PO PRN (19:30)
[2019-12-10] MEDS: Citalopram 20 MG TAB PO SCH (19:30)
[2019-12-10] MEDS: Insulin Glargine 40 UNITS in Pre-Filled Syringe 1 EACH SC SCH (21:53)
[2019-12-11 05:44] LABS: Anion Gap 12 mmol/L (10-20); BUN (Urea Nitrogen) 33 mg/dL (9.8-20.1); Calc. Creatinine Clearance 63 mL/min (70-130); Calcium 8.4 mg/dL (7.8-10.44); Carbon Dioxide 28 mmol/L (23-31); Chloride 105 mmol/L (98-107); Estimated GFR-MDRD 69; Glucose 119 mg/dL (83-110); Phosphorus 2.3 mg/dL (2.3-4.7); Potassium 4.2 mmol/L (3.5-5.1); Sodium 141 mmol/L (136-145)
--- NOTE | 2019-12-11 05:48 | PRG ---
DATE OF SERVICE: 12/10/2019 SUBJECTIVE: The patient is doing well this morning. She is postop day #2. She is concerned about her discharge placement planning and she is very concerned about catching COVID in a nursing home or rehab facility. Yesterday, she was worked up for syncope. OBJECTIVE: VITAL SIGNS: Temperature 97.8, respirations 18, O2 of 94% on room air, blood pressure 102/63. GENERAL: No acute distress. CARDIAC: Regular rate and rhythm. PULMONARY: Clear to auscultation bilaterally. GI: Abdomen is soft, nontender, nondistended. EXTREMITIES: Right foot swelling improved from yesterday. ASSESSMENT: 1. Status post ground level fall. 2. Left proximal tibial fracture, status post repair. 3. Demand ischemia, improved. 4. Acute kidney injury, resolved. 5. Acute adrenal insufficiency, resolved. 6. Recurrent history of spinal fractures. 7. History of rheumatoid arthritis, diabetes, hypertension, hyperlipidemia, ischemic colitis, hyponatremia, degenerative joint disease, recent spinal fractures, and pulmonary fibrosis per the patient. PLAN: We will continue current pain regimen and diet. Continue to encourage to work with physical therapy. There is a rehab screen pending for her evaluation for discharge planning purposes. The patient was seen and evaluated by Dr. Todd on rounds. Job ID: [id number]
[2019-12-11] MEDS: Levothyroxine Sodium 75 MCG TAB PO SCH (06:07)
[2019-12-11] MEDS: Acetaminophen 500 MG TAB PO SCH ×4 (06:07→17:18)
[2019-12-11] MEDS: Hydrocortisone Sod Succ/PF 100 mg/2 ml Vial IVP SCH ×4 (06:07→17:19)
[2019-12-11 06:44] LABS: Hemoglobin 8.2 g/dL (12.0-16.0); Mean Corpuscular HGB CONC 34.6 g/dL (32.0-36.0); Mean Corpuscular Hemoglobin 33.3 pg (27.0-31.0); Mean Corpuscular Volume 96.2 fL (78.0-98.0); Mean Platelet Volume 9.2 fL (7.4-10.4); Platelet Count 146 thou/uL (130-400); RBC Distribution Width 13.6 % (11.5-14.5); Red Blood Cell (RBC) Count 2.47 mill/uL (4.20-5.40); White Blood Cell (WBC) Count 7.4 thou/uL (4.8-10.8)
[2019-12-11 06:46] LABS: Band 18 % (5-11); Eosinophils 3 % (0-10); Lymphocytes 14 % (21-51); MDiff Complete? YES; Monocytes 5 % (0-10); Neutrophil 60 % (42-75); Platelet Morphology Comment Appears Adequate
[2019-12-11] MEDS: Aspirin 81 mg Enteric Coated Tablet PO SCH ×2 (08:43→21:36)
[2019-12-11] MEDS: Ascorbic Acid 500 mg Chewable Tablet PO SCH ×2 (08:43→21:37)
[2019-12-11] MEDS: UPADACITINIB 15 MG PO SCH (08:43)
[2019-12-11] MEDS: traMADol HCl 50 MG TAB PO PRN (08:44)
[2019-12-11] MEDS: Ferrous Sulfate 325 MG TAB PO SCH ×2 (08:45→17:19)
[2019-12-11] MEDS: Polyethylene Glycol 3350 17 GM Packet PO SCH (08:45)
[2019-12-11] MEDS: Sodium Chloride 1 GM TAB PO SCH ×2 (08:45→21:35)
[2019-12-11] MEDS: Gabapentin 100 MG CAP PO SCH ×3 (08:45→21:37)
[2019-12-11] MEDS: Senokot S 8.6-50 MG TAB PO SCH ×2 (08:46→21:37)
--- NOTE | 2019-12-11 09:05 | RAD ---
LEFT KNEE 4 VIEWS: INDICATION: History of fracture. COMPARISON: Prior study dated 12/07/2019. FINDINGS: Since the comparison examination, there has been interval placement of a fiberglass cast. The mildly displaced comminuted fracture involving the proximal tibia and fibula demonstrate improved alignment when compared to the prior. No overt changes of interval healing are grossly evident. Diffuse oste openia is present. The healed instrumented supracondylar femur fracture is unchanged. IMPRESSION: Improved alignment of the previously seen left proximal tibia and fibula fracture. POS: [facility]
[2019-12-11] MEDS: Cyclobenzaprine 10 MG TAB PO PRN (09:18)
[2019-12-11] MEDS ORDERED: traMADol HCl 50 MG TAB PO SCH (10:01)
--- NOTE | 2019-12-11 12:50 | PRG ---
DATE OF SERVICE: 12/11/2019 SUBJECTIVE: The patient is resting comfortably this morning. States she is concerned about discharge planning due to COVID and concerned about being able to bear weight on her lower extremity due to soreness and the nature of her fracture. OBJECTIVE: VITAL SIGNS: Temp 97.9, pulse 53, respirations 16, O2 is 94% on room air, BP 130/74. GENERAL: In no acute distress. CARDIAC: Regular rate and rhythm. PULMONARY: Clear to auscultation bilaterally. GI: Abdomen is soft, nontender, nondistended. ASSESSMENT: 1. Status post ground-level fall. 2. Left proximal tibial fracture, status post repair. 3. Demand ischemia, improved. 4. Acute kidney injury, resolved. 5. Recurrent history of spinal fractures. 6. History of rheumatoid arthritis, diabetes, hypertension, hyperlipidemia, ischemic colitis, hyponatremia, degenerative joint disease, and pulmonary fibrosis. PLAN: Repeat x-ray of the left knee was done this morning which showed improved alignment of the previously seen proximal tibia and fibular fracture. We will continue to optimize pain management on oral regimen and plan for discharge to nursing home facility as soon as she is approved and Case Management is working on discharging to [facility]. The patient is medically stable for discharge. The patient was seen and evaluated by Dr. Todd on rounds. Job ID: [id number]
[2019-12-11] MEDS: traMADol HCl 50 MG TAB PO SCH ×2 (15:10→21:37)
[2019-12-11] MEDS: Insulin Regular 300 UNITS/3 ML VIAL SC PRN ×2 (17:19→21:38)
[2019-12-11] MEDS: Simvastatin 10 MG TAB PO SCH (17:19)
[2019-12-11] MEDS: Insulin Glargine 40 UNITS in Pre-Filled Syringe 1 EACH SC SCH (21:36)
[2019-12-11] MEDS: Citalopram 20 MG TAB PO SCH (21:37)
[2019-12-12] MEDS: Acetaminophen 500 MG TAB PO SCH ×4 (00:09→17:24)
[2019-12-12] MEDS: Hydrocortisone Sod Succ/PF 100 mg/2 ml Vial IVP SCH ×2 (00:10→05:46)
[2019-12-12] MEDS: traMADol HCl 50 MG TAB PO SCH ×4 (03:31→21:05)
[2019-12-12] MEDS: Levothyroxine Sodium 75 MCG TAB PO SCH (05:46)
[2019-12-12] MEDS: UPADACITINIB 15 MG PO SCH (08:13)
[2019-12-12] MEDS: Aspirin 81 mg Enteric Coated Tablet PO SCH ×2 (08:13→21:04)
[2019-12-12] MEDS: Gabapentin 100 MG CAP PO SCH ×3 (08:14→21:04)
[2019-12-12] MEDS: Ferrous Sulfate 325 MG TAB PO SCH ×2 (08:14→17:24)
[2019-12-12] MEDS: Ascorbic Acid 500 mg Chewable Tablet PO SCH ×2 (08:14→21:05)
[2019-12-12] MEDS: Senokot S 8.6-50 MG TAB PO SCH ×2 (08:15→21:08)
[2019-12-12] MEDS: Polyethylene Glycol 3350 17 GM Packet PO SCH (08:15)
[2019-12-12] MEDS: Insulin Regular 300 UNITS/3 ML VIAL SC PRN (11:41)
[2019-12-12] MEDS: Simvastatin 10 MG TAB PO SCH (17:24)
[2019-12-12] MEDS: Citalopram 20 MG TAB PO SCH (21:05)
[2019-12-12] MEDS: Insulin Glargine 40 UNITS in Pre-Filled Syringe 1 EACH SC SCH (21:05)
[2019-12-13] MEDS: Cyclobenzaprine 10 MG TAB PO PRN ×2 (00:01→13:27)
[2019-12-13] MEDS: Acetaminophen 500 MG TAB PO SCH ×3 (00:01→11:42)
[2019-12-13] MEDS: traMADol HCl 50 MG TAB PO SCH ×2 (04:00→08:34)
[2019-12-13] MEDS: Levothyroxine Sodium 75 MCG TAB PO SCH (05:32)
[2019-12-13] MEDS: Ferrous Sulfate 325 MG TAB PO SCH (08:33)
[2019-12-13] MEDS: Gabapentin 100 MG CAP PO SCH (08:33)
[2019-12-13] MEDS: Aspirin 81 mg Enteric Coated Tablet PO SCH (08:34)
[2019-12-13] MEDS: Senokot S 8.6-50 MG TAB PO SCH (08:34)
[2019-12-13] MEDS: Ascorbic Acid 500 mg Chewable Tablet PO SCH (08:35)
[2019-12-13] MEDS: UPADACITINIB 15 MG PO SCH (08:35)
[2019-12-13] MEDS: Polyethylene Glycol 3350 17 GM Packet PO SCH (08:36)
[2019-12-13 11:40] VITALS: BP 148/73; TEMP 98.3
--- NOTE | 2019-12-13 13:20 | PRG ---
DATE OF SERVICE: 12/13/2019 The patient was seen by Dr. Kush Todd. SUBJECTIVE: The patient was supposed to be discharged yesterday to [facility]; however, the bed was unavailable. Therefore, blood sugar 59, was given crackers and immediately was corrected. Pain seems to be controlled. OBJECTIVE: VITAL SIGNS: Today, temperature is 98.3, blood pressure is 148/73, heart rate is 74, breathing 20 times per minute, and saturating 97% on 2 L oxygen nasal cannula. GENERAL: This is a 79-year-old female, sitting up, in no acute distress. Splint is in place, good CMS distal to this. RESPIRATORY: Equal rise and fall. No respiratory distress. CARDIOVASCULAR: Strong pulses. GI: Abdomen is soft. ASSESSMENT: 1. Status post ground-level fall. 2. Left proximal tibial fracture, status post repair. 3. Demand ischemia. 4. Acute kidney injury, resolved. 5. Rheumatoid arthritis, diabetes, hypertension, and hyperlipidemia. PLAN: 1. Monitor glucose. 2. Wait for [facility] bed. 3. Continue all other supportive care including working with PT and OT. Job ID: [id number]
[2019-12-13] MEDS ORDERED: Insulin Glargine 35 UNITS in Pre-Filled Syringe 1 EACH SC SCH (21:00)
--- NOTE | 2019-12-14 03:27 | DIS ---
DATE OF ADMISSION: 12/07/2019 DATE OF DISCHARGE: 12/13/2019 Please see progress note for today for current findings. Please see discharge summary done on 12/12/2019, as the patient was supposed to be discharged that date, however, had to stay overnight one other time for the remainder of the details. The patient remained stable. Again, please see progress note dated today. Greater than 30 minutes was taken in discharge planning of this patient. Job ID: [id number]
--- NOTE | 2019-12-14 15:58 | DIS ---
DATE OF ADMISSION: 12/07/2019 DATE OF DISCHARGE: 12/13/2019 ADMITTING ATTENDING: Dr. Todd. DISCHARGE ATTENDING: Dr. Todd. CONSULTS: Orthopedics, Dr. Wilson. PROCEDURES: On 12/08/2019, closed reduction and long-leg splint to left proximal tibia fracture. PRIMARY DIAGNOSIS: Left proximal tibia fracture. SECONDARY DIAGNOSES: Demand ischemia, history of rheumatoid arthritis, hypertension, hyperlipidemia, hypothyroidism, degenerative joint disease, chronic hyponatremia, urinary retention, pulmonary fibrosis, latent tuberculosis, history of ischemic colitis, history of thoracic and lumbar spine fractures. DISCHARGE MEDICATIONS: 1. Tylenol 1000 mg p.o. q.6 hours. 2. Aspirin 81 mg b.i.d. 3. Flexeril 5 mg t.i.d. p.r.n. 4. Gabapentin 100 mg t.i.d. 5. Tramadol 100 mg q.i.d. for pain. 6. Rinvoq one tablet p.o. daily. 7. Alprazolam 0.25 mg t.i.d. p.r.n. 8. Celexa 20 mg daily. 9. Vitamin D3. 10. Levothyroxine 75 mcg p.o. q.a.m. 11. Tresiba 40 units at bedtime. 12. Lovastatin 20 mg p.o. at bedtime. 13. Lisinopril 10 mg daily. 14. Victoza 1.8 mg subcutaneously daily. 15. Protonix 20 mg daily. 16. Metformin 500 mg daily. DISCONTINUED MEDICATIONS: None. HISTORY OF PRESENT ILLNESS/HOSPITAL COURSE: Ms. Neris Bolton is a pleasant 79-year-old female who presented to the ER after she fell at home. She reports that she became dizzy and weak and fell to the ground. On admission, x-ray of the left knee demonstrated a very markedly anterior angulated comminuted shortened proximal tibial fracture with severe bony demineralization. There are metal plates and screws stabilizing the distal femur from prior surgery. No significant suprapatellar joint effusion. Chest x-ray was remarkable for a hiatal hernia, bilateral interstitial and reticular nodules and lung parenchymal changes concerning for nonspecific chronic interstitial fibrosis. She was admitted to the Trauma Service after her fall. She was taken to the OR on 12/07 for a closed reduction of her knee and placed in a long-leg splint. Subsequently, she developed right foot pain and swelling on postop day 1, and foot x-ray was obtained, which showed no acute osseous abnormalities. Swelling and pain improved throughout her hospitalization. She was able to participate mildly with physical therapy and occupational therapy. She was slightly weak and deconditioned. Decision was made to discharge her to a swing bed facility for her to undergo further PT and OT prior to being discharged home. DISPOSITION: Stable. DISCHARGE INSTRUCTIONS: 1. Location: [facility]. 2. Diet: Diabetic. 3. Activity: Nonweightbearing on left lower extremity. 4. Followup: With primary care physician after discharge. Follow up with Orthopedics as stated and discharge planning. The patient was seen and evaluated by Dr. Todd on the day of discharge. Job ID: [id number]
--- NOTE | 2019-12-16 06:10 | PQF ---
CLINICAL DOCUMENTATION CLARIFICATION FORM: Dear :Kush Todd Date / Time: 12/16/2019 06:09 Please exercise your independent, professional judgment in responding to the clarification form. Clinical indicators are provided on the bottom of this form for your review Please check appropriate box(s): [ x ] Hypovolemic Shock [ ] Traumatic Shock [ ] Shock Unspecified [ ] Other diagnosis [ ] Unable to determine In addition, please specify: Present on Admission (POA): [ x ] Yes [ ] No [ ] Unable to determine Physician Signature: Date/Time: For continuity of documentation, please document condition throughout progress notes and discharge summary. Thank You. To be completed by CDI/Coding staff for physician review: Present Clinical Indicators - Signs / Symptoms / Labs Results and Location in Medical Record [x] Vital Signs BP: 12/07=91/59 12/0886=073/50 Vital Signs 12/07 [x] s/p mechanical fall from standing HP 12/06 [x] dizziness HP 12/06 [x] Hematology: RBC: 1.99 Hgb: 6.5 Hct:19.5 Labs 12/09 Present Risk Factors Results and Location in Medical Record [x] 79 years old female HP 12/06 [x] s/p fall HP 12/06 [x] DM HP 12/06 [x] HTN HP 12/06 [x] Left proximal tibial fracture HP 12/06 [x] JONATHAN PN 12/09 [x] Anemia PN 12/08 Present Treatments Results and Location in Medical Record [x] Close reduction OP Note 12/07 [x] Monitor H/H PN 12/08 [x] Blood transfusion Order 12/09 [x] IVF MAR 12/06 CDS/Coremaking Supervisor Signature: Amanda Hidalgo Phone #: [phone] Date/Time: 12/16/2019 06:09 This is a permanent part of the Medical Record [facility]
--- NOTE | 2019-12-16 06:15 | PQF ---
CLINICAL DOCUMENTATION CLARIFICATION FORM: Dear : Kush Todd Date / Time: 12/16/2019 06:14 Please exercise your independent, professional judgment in responding to the clarification form. Clinical indicators are provided on the bottom of this form for your review Please check appropriate box(es): Type of fracture: Check all that apply [ ] Osteopenia fracture [ x] Traumatic fracture [ ] Osteoporosis fracture [ ] Other diagnosis [ ] Unable to determine Physician Signature: Date/Time: For continuity of documentation, please document condition throughout progress notes and discharge summary. Thank You. To be completed by CDI/Coding staff for physician review: Present Clinical Indicators - Signs / Symptoms / Labs Results and Location in Medical Record [x] Left proximal tibial fracture HP 12/06 [x] Knee xray: comminuted foreshortened proximal tibial fracture. Severe bony demineralization Knee Xray 12/06 [x] s/p mechanical fall from standing HP 12/06 [x] complaining of leg pain HP 12/06 [x] tibial plateau fracture with significant osteopenia in and around the metaphyseal bone Consult 12/06 Present Risk Factors Results and Location in Medical Record [x] 79 years old female HP 12/06 [x] s/p fall HP 12/06 [x] DM HP 12/06 [x] Osteopenia Consult 12/06 [x] Osteoporosis HP 12/06 Present Treatments Results and Location in Medical Record [x] Close reduction OP Note 12/07 [x] Knee xray Collected 12/06 [x] Ortho Consult Consult 12/06 [x] Morphine 4mg IV JUN 29 CDS/Bucket Chucker Signature: Amanda Hidalgo Phone #: [phone] Date/Time: 12/16/2019 06:14 This is a permanent part of the Medical Record [facility]
--- NOTE | 2019-12-31 16:26 | EKG ---
Test Reason : Blood Pressure : / mmHG Vent. Rate : 090 BPM Atrial Rate : 090 BPM P-R Int : 154 ms QRS Dur : 088 ms QT Int : 380 ms P-R-T Axes : 009 012 030 degrees QTc Int : 464 ms Poor data quality, interpretation may be adversely affected Normal sinus rhythm with sinus arrhythmia Normal ECG Confirmed by JOSE FIGUEROA ([id number]), senior technical editor JACKIE SERRATO ([id number]) on 12/31/2019 4:25:30 PM Referred By: Confirmed By:JOSE FIGUEROA
== END 2019-12-13 14:21 | disposition swing bed (61) | DRG 562 ==
LOC: ERS 14:05 → SURG A 18:43
PROVIDERS: ADMIT Surgery; ATTEND Surgery
PROC: 0QSHXZZ Reposition Left Tibia, External Approach (ICD-10-PCS; principal; 2019-12-08)
PROC: 30233N1 Transfusion of Nonautologous Red Blood Cells into Peripheral Vein, Percutaneous Approach (ICD-10-PCS; 2019-12-10)
DX: S82.102A Unspecified fracture of upper end of left tibia, initial encounter for closed fracture (principal); R57.1 Hypovolemic shock; N17.9 Acute kidney failure, unspecified; E27.40 Unspecified adrenocortical insufficiency; I24.8 Other forms of acute ischemic heart disease; E87.1 Hypo-osmolality and hyponatremia; W17.89XA Other fall from one level to another, initial encounter; M06.9 Rheumatoid arthritis, unspecified; I10 Essential (primary) hypertension; E78.5 Hyperlipidemia, unspecified; E03.9 Hypothyroidism, unspecified; J84.10 Pulmonary fibrosis, unspecified; M81.0 Age-related osteoporosis without current pathological fracture; E11.9 Type 2 diabetes mellitus without complications; M85.862 Other specified disorders of bone density and structure, left lower leg; D64.9 Anemia, unspecified; Z86.15 Personal history of latent tuberculosis infection; Z90.49 Acquired absence of other specified parts of digestive tract; Z88.1 Allergy status to other antibiotic agents; Z11.59 Encounter for screening for other viral diseases
CPT/HCPCS: 27532; 36415; 36416; 36430; 51702; 71045; 72170; 76000; 80048; 80053; 81003; 82533; 82553; 83735; 84100; 84484; 85025; 85610; 85730; 86850; 86900; 86901; 87635; 93005; 93306; 93880; 96374; 96375; J0690; J1720; J1815; J2250; J2270; J2370; J2704; J3010; J3475; J3490; J7050; P9016; S0028; U0003

== ENCOUNTER 2020-02-19 16:25 | Inpatient (IN) | payer MEDICARE, OTHER ==
[2020-02-19 18:00] LABS: #Eosinphils 0.5 thou/uL (0.0-0.7); #Lymphocytes 2.6 thou/uL (1.20-3.40); #Monocytes 0.5 thou/uL (0.11-0.59); %Basophils 0.3 % (0.0-1.0); %Eosinophils 4.9 % (0.0-10.0); %Lymphocytes 24.6 % (21.0-51.0); %Monocytes 4.7 % (0.0-10.0); %Neutrophils 65.6 % (42.0-75.0); Mean Corpuscular HGB CONC 34.5 g/dL (32.0-36.0); Mean Corpuscular Hemoglobin 32.6 pg (27.0-31.0); Mean Corpuscular Volume 94.7 fL (78.0-98.0); Mean Platelet Volume 7.5 fL (7.4-10.4); Platelet Count 306 thou/uL (130-400); RBC Distribution Width 14.2 % (11.5-14.5); Red Blood Cell (RBC) Count 2.77 mill/uL (4.20-5.40); White Blood Cell (WBC) Count 10.6 thou/uL (4.8-10.8)
[2020-02-19 18:25] LABS: ALT (SGPT) 11 U/L (8-55); AST (SGOT) 22 U/L (5-34); Albumin 3.3 g/dL (3.4-4.8); Alkaline Phosphatase 58 U/L (40-110); Anion Gap 18 mmol/L (10-20); BUN (Urea Nitrogen) 30 mg/dL (9.8-20.1); Bilirubin, Total 0.2 mg/dL (0.2-1.2); Calc. Creatinine Clearance 0 mL/min (70-130); Carbon Dioxide 19 mmol/L (23-31); Chloride 105 mmol/L (98-107); Estimated GFR-MDRD 29; Globulin 3.1 g/dL (2.4-3.5); Glucose 120 mg/dL (83-110); Potassium 4.7 mmol/L (3.5-5.1); Protein, Total 6.4 g/dL (6.0-8.3); Sodium 137 mmol/L (136-145)
--- NOTE | 2020-02-19 18:27 | RAD ---
LEFT KNEE: 02/19/20 Two views. HISTORY: Pain. COMPARISON: Comparison made to knee films of 12/11/19. Displaced fracture of the proximal tibia and fibula have been previously described. There has been increased displacement of the proximal tibia and fibula fractures when compared to valarie or study. The lateral view today, there is increasing posterior displacement in a distal fragment of the tibial fracture. There is comminution with fragments again noted. IMPRESSION: Increased displacement of the proximal tibia fracture when compared to 12/11/19. POS: [facility]
[2020-02-19 18:37] LABS: Calcium 12.4 mg/dL (7.8-10.44)
[2020-02-19] MEDS ORDERED: Bisacodyl 10 MG SUPP PR PRN (20:39)
[2020-02-19] MEDS ORDERED: traMADol HCl 50 MG TAB PO PRN (20:39)
[2020-02-19] MEDS ORDERED: Ondansetron PF 4 MG/2 ML Vial SLOW IVP PRN (20:39)
[2020-02-19] MEDS ORDERED: Communication Order-Pharmacy FS PRN (20:45)
[2020-02-19] MEDS ORDERED: Cyclobenzaprine 10 MG TAB PO PRN (20:46)
[2020-02-19] MEDS ORDERED: Lisinopril 10 MG TAB PO SCH (21:00)
--- NOTE | 2020-02-19 21:14 | HP ---
CHIEF COMPLAINT: Left knee pain. HISTORY OF PRESENT ILLNESS: Ms. Bolton is a 79-year-old female, who has sustained a fracture of her left tibia approximately two months ago. She has severe osteoporosis and had a complicated fracture. She was treated nonoperatively at the time with a closed reduction and a splint. She was subsequently converted to a knee brace. Unfortunately, she has had severe worsening of her alignment and has had displacement of her fracture. She is developing a wound over her anterior knee from skin pressure as well. She was taken to the Emergency Department tonight after her home health care provider checked on her. PAST MEDICAL HISTORY: Severe osteopenia, multiple fractures including lower extremity fractures and vertebral fractures, rheumatoid arthritis, diabetes, hypertension, hyperlipidemia, hypothyroidism, degenerative joint disease, and chronic anemia. PAST SURGICAL HISTORY: Tonsillectomy, previous open reduction and internal fixation of the distal femur as well as intramedullary nail the proximal femur, previous right ankle fracture surgery, and colectomy status post ischemic colitis. SOCIAL HISTORY: The patient denies tobacco, alcohol, or drug use. She uses a walker at baseline, but has not walked in the last several months. ALLERGIES: TO QUINOLONES. REVIEW OF SYSTEMS: Positive for left leg pain. Otherwise negative 10-point review of systems. FAMILY MEDICAL HISTORY: Noncontributory. SOCIAL HISTORY: The patient denies tobacco, alcohol, or drug use. IMAGES: X-rays of the left knee and tibia demonstrate a severely osteoporotic appearance to the bones. She has a comminuted chronic appearing proximal tibia fracture with displacement. There is near 100% displacement posteriorly of the proximal tibia in relation to the knee. She has a distal femoral plate and plate along the lateral cortex of the distal femur. PHYSICAL EXAMINATION: VITAL SIGNS: Stable. She is 98% on room air. She is normotensive. Respiratory rate of 16. HEENT: Normocephalic and atraumatic. RESPIRATORY: Breathing comfortably. ABDOMEN: Soft, nontender, and nondistended. MUSCULOSKELETAL: The patient's left lower extremity has severe deformity with posterior subluxation of the tibia. There is a small 3 cm area of erythema and a superficial wound over the anterior lateral knee with significant pressure of the femoral condyle on the skin. She has equinus contracture of both ankles and feet. She has weakness in the lower extremities. She has a warm and well-perfused feet. Pulses are poorly palpable. 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 The patient has severe osteoporosis. PLAN: At this point, we will bring the patient in the hospital. She will need care. She is unable to mobilize at home. She will need pain control. She will need DVT prophylaxis. We will plan for surgical intervention. We have attempted nonoperative treatment, but this has failed, she has worsening in her condition. She is becoming debilitated. I think her best option will be a knee arthrodesis. We can plan for this using an intramedullary device. This will require removing her previous hardware from older surgeries. Alternative would be amputation, which would need to be above the knee. However, I do not think she would be able to walk with this given her deconditioning. She wants to try the knee fusion. We will obtain the appropriate equipment and prepare for the surgery. She will have medical comanagement for optimization. For now, she can have a regular diet. We will mobilize her [id number] until we can proceed with surgery. She has an extensive risk for complication including wound complication, infection, nonunion, need for further surgery, and need for amputation in the future. Job ID: [id number]
[2020-02-19] MEDS: Citalopram 20 MG TAB PO SCH (22:00)
[2020-02-19] MEDS: Gabapentin 300 MG CAP PO SCH (22:00)
[2020-02-19] MEDS: Simvastatin 5 MG TAB PO SCH (22:00)
[2020-02-20] MEDS ORDERED: Dextrose 5% in Water 1,000 ML IV PRN (03:19)
[2020-02-20] MEDS ORDERED: Dextrose 50% Abboject 50 ML SYRINGE SLOW IVP PRN (03:19)
[2020-02-20] MEDS: Sodium Chloride 0.9% 1,000 ML IV SCH ×3 (04:00→19:00)
--- NOTE | 2020-02-20 04:00 | PDOC.HHP ---
Hospitalist HPI - History of Present Illness Left knee pain History of Present Illness: The patient is a 71-year-old female with a past medical history significant for severe osteopenia, rheumatoid arthritis, degenerative joint disease, diabetes 2, hypertension, hyperlipidemia, hypothyroidism and chronic anemia that presents to the hospital for the above complaint. Apparently, the patient suffered a left tibial fracture approximately 2 months ago. At that time, the fracture was treated nonoperatively with a closed reduction in a splint. At some point, the patient was converted to a knee brace. However, the patient suffered worsening of her alignment and had displacement of her fracture with associated pressure ulcer to her knee. We were consulted for medical management of her chronic conditions. At the time of exam the patient denies any fever or chills. Denies any chest pain, heart palpitation or shortness of breath. Denies any abdominal pain, vomiting, diarrhea. She has no urinary symptoms. She has no pain. Hospitalist ROS - Review of Systems All other systems reviewed; all pertinent +/- noted in HPI/Subj - Medication Medications: Active Medications Generic Name Dose Route Start Last Admin Trade Name Cielo PRN Reason Stop Dose Admin Citalopram Hydrobromide 20 mg 02/19/20 21:00 02/19/20 22:00 Citalopram 20 Mg Tab PO 20 mg HS LOUISE Administration Gabapentin 300 mg 02/19/20 21:00 02/19/20 22:00 Gabapentin 300 Mg Cap PO 300 mg BID LOUISE Administration Simvastatin 10 mg 02/19/20 21:00 02/19/20 22:00 Simvastatin 5 Mg Tab PO 10 mg HS LOUISE Administration 1. Ascorbic acid 500 mg p.o. daily 2. Cholecalciferol 5000 units p.o. daily. 3. Celexa 20 mg p.o. nightly 4. Ferrous sulfate 325 mg p.o. twice daily with meals 5. Gabapentin 300 mg p.o. twice daily 6. Levothyroxine 75 mcg p.o. at 0600 7. Lisinopril 10 mg p.o. nightly 8. Zocor 10 mg p.o. nightly 9. Flexeril 5 mg p.o. 3 times daily as needed pain 10. Xanax 0.25 mg p.o. 3 times daily as needed anxiety. 11. Tylenol #3 1 tablet p.o. every 4 hours as needed pain Allergies: Ciprofloxacin, levofloxacin Hospitalist History - Past Medical History Source: patient, RN notes reviewed Cardiac: reports: HTN, Hyperlipidemia Heme/Onc: reports: Anemia NOS Musculoskeletal: reports: Other (Severe osteoporosis, degenerative joint disease ) Rheumatologic: reports: Rheumatoid arthritis, Other Endocrine: reports: Diabetes (Type II), Hypothyroidism - Past Surgical History Other Surgical History: Tonsillectomy, ORIF distal femur, right ankle surgery, colectomy - Family History Other Family History: Noncontributory to this case - Social History Smoking Status: Never smoker Alcohol: reports: None Drugs: reports: none Living Situation: With Family Occupation: There is no work Activity level: bed bound - Exam General Appearance: NAD, awake alert Eye: anicteric sclera ENT: normocephalic atraumatic Neck: supple, symmetric, no JVD Heart: RRR, no murmur, no gallops, no rubs, normal peripheral pulses Respiratory: CTAB, no wheezes, no rales, no ronchi, normal chest expansion Gastrointestinal: soft, non-tender, normal bowel sounds, no guarding, no rigid ity Extremities - other findings: Left lower extremity severe malalignment, pressure ulcer to the lateral kne Neurological: no new deficit. negative: speech deficit, vision deficit Psychiatric: normal affect, A&O x 3 Hospitalist Results - Labs Result Diagrams: 02/19/20 17:37 02/19/20 17:37 Lab results: WBC 10.6 thou/uL (4.8-10.8) 02/19/20 17:37 Hgb 9.0 g/dL (12.0-16.0) L 02/19/20 17:37 Hct 26.2 % (36.0-47.0) L 02/19/20 17:37 MCV 94.7 fL (78.0-98.0) 02/19/20 17:37 Plt Count 306 thou/uL (130-400) 02/19/20 17:37 Neutrophils % 65.6 % (42.0-75.0) 02/19/20 17:37 ESR Westergren 27 mm/hr (Less than 30) 02/19/20 17:37 Sodium 137 mmol/L (136-145) 02/19/20 17:37 Potassium 4.7 mmol/L (3.5-5.1) 02/19/20 17:37 Chloride 105 mmol/L (98-107) 02/19/20 17:37 Carbon Dioxide 19 mmol/L (23-31) L 02/19/20 17:37 BUN 30 mg/dL (9.8-20.1) H 02/19/20 17:37 Creatinine 1.71 mg/dL (0.6-1.1) H 02/19/20 17:37 Glucose 120 mg/dL (83-110) H 02/19/20 17:37 Calcium 12.4 mg/dL (7.8-10.44) H* 02/19/20 17:37 Total Bilirubin 0.2 mg/dL (0.2-1.2) 02/19/20 17:37 AST 22 U/L (5-34) 02/19/20 17:37 ALT 11 U/L (8-55) 02/19/20 17:37 Alkaline Phosphatase 58 U/L (40-110) 02/19/20 17:37 C-Reactive Protein 0.65 mg/dL (= or < 0.5) H 02/19/20 17:37 Serum Total Protein 6.4 g/dL (6.0-8.3) 02/19/20 17:37 Albumin 3.3 g/dL (3.4-4.8) L 02/19/20 17:37 Hospitalist H&P A/P - Problem (1) JONATHAN (acute kidney injury) Code(s): N17.9 - ACUTE KIDNEY FAILURE, UNSPECIFIED Status: Acute (2) Hypercalcemia Code(s): E83.52 - HYPERCALCEMIA Status: Acute (3) HTN (hypertension) Code(s): I10 - ESSENTIAL (PRIMARY) HYPERTENSION Status: Chronic (4) DM2 (diabetes mellitus, type 2) Status: Chronic (5) HLD (hyperlipidemia) Code(s): E78.5 - HYPERLIPIDEMIA, UNSPECIFIED Status: Chronic (6) Hypothyroidism Code(s): E03.9 - HYPOTHYROIDISM, UNSPECIFIED Status: Chronic (7) Chronic anemia Code(s): D64.9 - ANEMIA, UNSPECIFIED Status: Chronic - Plan Plan: #JONATHAN Presented creatinine 1.71, baseline appears to be 1.0 Start IV fluids. Hold metformin and lisinopril. Renal ultrasound. Recheck level in a.m. #Hypercalcemia Patient asymptomatic. Hold home dose of [place]. Check mag, phosphorus, vitamin D, PTH levels. #HTN Chronic, stable. Hold lisinopril due to problem #1. Continue to monitor BP. #DM2 Hold Metformin due to problem #1. Start mild ISS. ACH S Accu-Cheks. #HLD Continue home dose of Zocor. #Hypothyroidism Check TSH level. Continue home dose of levothyroxine. #Chronic anemia Stable. Hgb 9.0, HCT 26.2 Continue home dose of ferrous sulfate. 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 Heparin for DVT prophylaxis. Protonix for GI prophylaxis. Full code. Discussed case with Dr. Lugo.
[2020-02-20 05:22] LABS: #Eosinphils 0.6 thou/uL (0.0-0.7); #Lymphocytes 2.1 thou/uL (1.20-3.40); #Monocytes 0.7 thou/uL (0.11-0.59); #Neutrophils 6.9 thou/uL (1.40-6.50); %Basophils 0.3 % (0.0-1.0); %Eosinophils 5.6 % (0.0-10.0); %Lymphocytes 20.7 % (21.0-51.0); %Monocytes 6.5 % (0.0-10.0); %Neutrophils 66.9 % (42.0-75.0); Hemoglobin 8.7 g/dL (12.0-16.0); Mean Corpuscular HGB CONC 34.4 g/dL (32.0-36.0); Mean Corpuscular Hemoglobin 32.8 pg (27.0-31.0); Mean Corpuscular Volume 95.3 fL (78.0-98.0); Mean Platelet Volume 7.3 fL (7.4-10.4); Platelet Count 310 thou/uL (130-400); RBC Distribution Width 14.2 % (11.5-14.5); Red Blood Cell (RBC) Count 2.64 mill/uL (4.20-5.40); White Blood Cell (WBC) Count 10.2 thou/uL (4.8-10.8)
[2020-02-20] MEDS: Levothyroxine Sodium 75 MCG TAB PO SCH (05:48)
[2020-02-20 06:00] LABS: Anion Gap 16 mmol/L (10-20); BUN (Urea Nitrogen) 34 mg/dL (9.8-20.1); Calc. Creatinine Clearance 25 mL/min (70-130); Carbon Dioxide 23 mmol/L (23-31); Chloride 106 mmol/L (98-107); Estimated GFR-MDRD 25; Glucose 132 mg/dL (83-110); Magnesium 1.3 mg/dL (1.6-2.6); Phosphorus 3.6 mg/dL (2.3-4.7); Potassium 4.7 mmol/L (3.5-5.1); Sodium 140 mmol/L (136-145)
[2020-02-20 06:06] LABS: Thyroid Stimulating Hormone 3.8252 uIU/mL (0.35-4.94); Vitamin D, 25 Hydroxy 73.6 ng/ml (> 30.0)
[2020-02-20 06:35] LABS: Calcium 12.7 mg/dL (7.8-10.44)
--- NOTE | 2020-02-20 06:47 | ULT ---
BILATERAL RENAL ULTRASOUND: Date: 02/20/2020 COMPARISON: 10/08/2019. HISTORY: Acute kidney injury with recent urinary tract infection. TECHNIQUE: Multiplanar Allen scale and color Doppler images were obtained in a renal ultrasound. FINDINGS: The kidneys are normal in echogenicity without hydronephrosis or calculi and measure 9.9 and 9.6 cm i n length on the right and left, respectively. Limited visualization of the urinary bladder is unremarkable. The ureteral jets are seen bilaterally. IMPRESSION: Unremarkable renal ultrasound. POS: AILIN
[2020-02-20] MEDS ORDERED: Calcium Carbonate 500 MG TAB PO SCH (08:00)
[2020-02-20] MEDS ORDERED: metFORMIN 500 MG TAB PO SCH (08:00)
--- NOTE | 2020-02-20 08:15 | RAD ---
2 VIEWS LEFT FEMUR: HISTORY: Preoperative planning for knee fusion. COMPARISON: Views of left knee dated 12/07/2019. FINDINGS: A antegrade intramedullary astrid with distal interlocking screw and dynamic compression screw transfix the left proximal femur and hip. There is a lateral plate and multiple screws transfixing the distal femur. There is irregularity involving the most proximal tibia with evidence of a fracture involving the impacted and comminuted fracture involving the proximal tibia. This is better visualized on views of the knee on 12/07/2019. Fracture lucencies are not well evaluated on this single lateral view of the femur, but there does appear to be anterior displacement of the fracture fragment of the tibia wh ich was also present on prior study. Diffuse osteopenia is present. No acute fracture is appreciated involving the left femur. IMPRESSION: 1. Postoperative changes left femur. 2. Comminuted, impacted fracture partially imaged involving the proximal left tibia. This is not wel l evaluated on views of the left femur. POS: OFF
--- NOTE | 2020-02-20 08:37 | RAD ---
RIGHT ANKLE 3 VIEWS: Date: 02/19/2020 INDICATION: RighT ankle deformity. COMPARISON: The exam is compared to a prior dated December 09, 2019. FINDINGS: The healed instrumented bimalleolar ankle fracture is unchanged. Diffuse osteopenia persists. No ac serenity fracture or subluxation is evident. There is diffuse soft tissue swelling. There is stable mode rate osteoarthrosis of the tibiotalar joint. IMPRESSION: Stable postoperative right ankle. Stable moderate osteoarthrosis of the tibiotalar joint. POS: BEL
[2020-02-20] MEDS ORDERED: Upadacitinib [Rinvoq] 15 MG Tab.Er.24h PO SCH (09:00)
--- NOTE | 2020-02-20 09:25 | RAD ---
Left ankle 2 view History: Pain Comparison: None. Findings: Moderate bimalleolar soft tissue swelling. No acute displaced fracture or malalignment. Ayana tically oriented sclerosis posterior process calcaneus Large plantar calcaneal spur. Impression: 1. Abnormal vertically oriented sclerosis posterior calcaneal process may reflect a healing stress fr acture in a background of demineralization. 2. Moderate soft tissue swelling.
[2020-02-20] MEDS: Gabapentin 300 MG CAP PO SCH ×2 (09:53→20:33)
[2020-02-20] MEDS: Ferrous Sulfate 325 MG TAB PO SCH ×2 (09:56→16:58)
[2020-02-20] MEDS: Ascorbic Acid 500 mg Chewable Tablet PO SCH (09:56)
[2020-02-20] MEDS: Heparin 5,000 UNITS/ML VIAL SC SCH ×2 (09:56→20:34)
[2020-02-20] MEDS: Cholecalciferol 1,000 UNITS (25 MCG) TAB PO SCH (10:08)
[2020-02-20 12:38] VITALS: BMI 22.8
[2020-02-20 12:40] LABS: Iron 56 ug/dL (50-170); Iron Binding Capacity, Total 250 mcg/dL (265-497)
[2020-02-20 12:57] LABS: SARS-CoV-2 MS2 Positive; SARS-CoV-2 N Gene Negative; SARS-CoV-2 S Gene Negative; SARS-CoV-2 by NAA Not Detected (NotDetected); SARS-CoV-2 orf1ab Negative
[2020-02-20 13:53] LABS: Creatinine, Urine 71.1 mg/dL (47-110)
--- NOTE | 2020-02-20 18:03 | PDOC.HOSPP ---
- Subjective Encounter Date: 02/20/20 Encounter Time: 18:01 Subjective: Ms. Bolton was seen today in follow-up for medical management. She does not have any complaints today. She notes some discomfort in her ankle. - Objective Vital Signs & Weight: Vital Signs (12 hours) Temp Pulse Resp BP Pulse Ox 02/20/20 15:40 99.2 F 101 H 16 113/58 L 94 L 02/20/20 07:22 98.6 F 100 18 125/72 92 L Weight Admit Weight 145 lb Weight 133 lb 3.2 oz I&O: 02/19/20 02/20/20 02/21/20 06:59 06:59 06:59 Intake Total 420 Output Total 200 Balance 220 Result Diagrams: 02/20/20 05:00 02/20/20 05:00 Additional Labs: Accuchecks 02/20/20 05:34 POC Glucose 130 H Hospitalist ROS - Medication Medications: Active Medications Generic Name Dose Route Start Last Admin Trade Name Freq PRN Reason Stop Dose Admin Ascorbic Acid 500 mg 02/20/20 09:00 02/20/20 09:56 Ascorbic Acid 500 Mg Chewable Tablet PO 500 mg DAILY LOUISE Administration Cholecalciferol 5,000 units 02/20/20 09:00 02/20/20 10:08 Cholecalciferol 1,000 Units (25 Mcg) Tab PO Not Given DAILY LOUISE Citalopram Hydrobromide 20 mg 02/19/20 21:00 02/19/20 22:00 Citalopram 20 Mg Tab PO 20 mg HS LOUISE Administration Ferrous Sulfate 325 mg 02/20/20 08:00 02/20/20 16:58 Ferrous Sulfate 325 Mg Tab PO 325 mg BID-WM LOUISE Administration Gabapentin 300 mg 02/19/20 21:00 02/20/20 09:53 Gabapentin 300 Mg Cap PO 300 mg BID LOUISE Administration Heparin Sodium (Porcine) 5,000 units 02/20/20 09:00 02/20/20 09:56 Heparin 5,000 Units/Ml Vial SC 5,000 units BID LOUISE Administration Sodium Chloride 1,000 mls @ 100 mls/hr 02/20/20 03:30 02/20/20 16:33 Normal Saline 0.9% IV 1,000 mls .Q10H LOUISE Administration Levothyroxine Sodium 75 mcg 02/20/20 06:00 02/20/20 05:48 Levothyroxine Sodium 75 Mcg Tab PO Not Given 0600 LOUISE Pantoprazole Sodium 20 mg 02/20/20 09:00 02/20/20 09:55 Pantoprazole 40 Mg Tab PO 20 mg DAILY LOUISE Administration Simvastatin 10 mg 02/19/20 21:00 02/19/20 22:00 Simvastatin 5 Mg Tab PO 10 mg HS LOUISE Administration - Exam Eye: PERRL, anicteric sclera Heart: RRR, no murmur, no gallops, no rubs, normal peripheral pulses Respiratory: CTAB, no wheezes, no rales, no ronchi, normal chest expansion, no tachypnea Gastrointestinal: soft, non-tender, non-distended, normal bowel sounds, no palpable masses, no hepatomegaly Extremities: no cyanosis, 1+ LE edema Hosp A/P (1) JONATHAN (acute kidney injury) Code(s): N17.9 - ACUTE KIDNEY FAILURE, UNSPECIFIED Status: Acute (2) Hypercalcemia Code(s): E83.52 - HYPERCALCEMIA Status: Acute (3) DM2 (diabetes mellitus, type 2) Status: Chronic (4) HTN (hypertension) Code(s): I10 - ESSENTIAL (PRIMARY) HYPERTENSION Status: Chronic (5) Hypothyroidism Code(s): E03.9 - HYPOTHYROIDISM, UNSPECIFIED Status: Chronic (6) Diabetes Mellitus Type 2 in Nonobese Code(s): E11.9 - TYPE 2 DIABETES MELLITUS WITHOUT COMPLICATIONS Status: Chronic (7) Osteoporosis Code(s): M81.0 - AGE-RELATED OSTEOPOROSIS W/O CURRENT PATHOLOGICAL FRACTURE Status: Chronic - Plan * Acute Kidney Injury- her renal function has not improved- Check urine sodium and urine creatinine was checked, FENA is approximately 0.7% which suggests she is pre-renal- will increase her fluids, and re-assess in the AM * Hypercalcemia- ? etiology- this may be due to prolonged bed rest, or excessive calcium supplementation ( PTH is low )- Vitamin D levels are normal. Increase the fluid rate and re-assess. * If renal function and hypercalcemia are not improved in the AM, will consult Nephrology * DM- blood glucose is stable- continue SSI, and Metformin is on hold * Hypothyroidism- her thyroid function tests are normal- continue Levothyroxine * Management of tibial fracture as per Orthopedics
[2020-02-20] MEDS ORDERED: Sodium Chloride 0.9% 500 ML IV SCH (18:15)
[2020-02-20] MEDS ORDERED: UPADACITINIB 15 MG PO SCH (18:16)
[2020-02-20] MEDS: Citalopram 20 MG TAB PO SCH (20:33)
[2020-02-20] MEDS: Simvastatin 5 MG TAB PO SCH (20:33)
[2020-02-20] MEDS ORDERED: FLU VACC QS2020-21(65YR UP)/PF 240 MCG/0.7 ML SYRINGE IM ONE (21:00)
[2020-02-20] MEDS: Acetaminophen/Codeine 30-300mg Tablet PO PRN (21:26)
[2020-02-21] MEDS: Sodium Chloride 0.9% 1,000 ML IV SCH (00:01)
[2020-02-21 05:42] LABS: Anion Gap 12 mmol/L (10-20); BUN (Urea Nitrogen) 27 mg/dL (9.8-20.1); Calc. Creatinine Clearance 29 mL/min (70-130); Calcium 11.2 mg/dL (7.8-10.44); Carbon Dioxide 21 mmol/L (23-31); Chloride 109 mmol/L (98-107); Estimated GFR-MDRD 33; Glucose 110 mg/dL (83-110); Potassium 4.4 mmol/L (3.5-5.1); Sodium 138 mmol/L (136-145)
[2020-02-21] MEDS: Levothyroxine Sodium 75 MCG TAB PO SCH (06:03)
--- NOTE | 2020-02-21 07:29 | PDOC.HOSPP ---
- Subjective Encounter Date: 02/21/20 Encounter Time: 08:29 Subjective: Pt is emotional upon evaluation and her hands were shaking. Her caregiver states that she is anxious about the possibility of amputation. Otherwise, she does not complain of any pain and is tolerating her diet well. When I came to see the patient at 9:45am she was more drowsy, and could barely stay awake. Her heart rate is a bit elevated. - Objective Vital Signs & Weight: Vital Signs (12 hours) Temp Pulse Resp BP Pulse Ox 02/21/20 04:04 97.7 F 84 19 111/60 94 L 02/21/20 00:05 97.7 F 70 19 103/62 94 L 02/20/20 20:00 96 02/20/20 19:58 98.2 F 102 H 18 118/58 L 99 Weight Admit Weight 145 lb Weight 133 lb 3.2 oz I&O: 02/20/20 02/21/20 02/22/20 06:59 06:59 06:59 Intake Total 420 1740 Output Total 200 200 Balance 220 1540 Result Diagrams: 02/21/20 09:43 02/21/20 04:56 Hospitalist ROS - Review of Systems Eyes: denies: pain, vision change, conjunctivae inflammation, eyelid inflamm ation, redness, other ENT: denies: ear pain, ear discharge, nose pain, nose discharge, nose congestion, mouth pain, mouth swelling, throat pain, throat swelling, other Respiratory: denies: cough, dry, shortness of breath, hemoptysis, SOB with excertion, pleuritic pain, sputum, wheezing, other Cardiovascular: denies: chest pain, palpitations, orthopnea, paroxysmal noc. dyspnea, edema, light headedness, other Gastrointestinal: denies: nausea, vomiting, abdominal pain, diarrhea, constipation, melena, hematochezia, other Genitourinary: denies: dysuria, frequency, incontinence, hematuria, retention, other Neurological: reports: other (UE shaking bilaterally) - Medication Medications: Active Medications Generic Name Dose Route Start Last Admin Trade Name Freq PRN Reason Stop Dose Admin Acetaminophen/Codeine Phosphate 1 tab 02/19/20 20:39 02/20/20 21:26 Acetaminophen/Codeine 30-300mg Tablet PO 1 tab Q4H PRN Administration Moderate Pain (4-6) Ascorbic Acid 500 mg 02/20/20 09:00 02/20/20 09:56 Ascorbic Acid 500 Mg Chewable Tablet PO 500 mg DAILY LOUISE Administration Cholecalciferol 5,000 units 02/20/20 09:00 02/20/20 10:08 Cholecalciferol 1,000 Units (25 Mcg) Tab PO Not Given DAILY LOUISE Citalopram Hydrobromide 20 mg 02/19/20 21:00 02/20/20 20:33 Citalopram 20 Mg Tab PO 20 mg HS LOUISE Administration Ferrous Sulfate 325 mg 02/20/20 08:00 02/20/20 16:58 Ferrous Sulfate 325 Mg Tab PO 325 mg BID-WM LOUISE Administration Gabapentin 300 mg 02/19/20 21:00 02/20/20 20:33 Gabapentin 300 Mg Cap PO 300 mg BID LOUISE Administration Heparin Sodium (Porcine) 5,000 units 02/20/20 09:00 02/20/20 20:34 Heparin 5,000 Units/Ml Vial SC 5,000 units BID LOUISE Administration Sodium Chloride 1,000 mls @ 25 mls/hr 02/20/20 18:09 02/21/20 00:01 Normal Saline 0.9% IV 1,000 mls .Q24H LOUISE Administration Levothyroxine Sodium 75 mcg 02/20/20 06:00 02/21/20 06:03 Levothyroxine Sodium 75 Mcg Tab PO 75 mcg 0600 LOUISE Administration Pantoprazole Sodium 20 mg 02/20/20 09:00 02/20/20 09:55 Pantoprazole 40 Mg Tab PO 20 mg DAILY LOUISE Administration Simvastatin 10 mg 02/19/20 21:00 02/20/20 20:33 Simvastatin 5 Mg Tab PO 10 mg HS LOUISE Administration - Exam General Appearance: NAD Eye: PERRL, anicteric sclera ENT: normocephalic atraumatic Neck: supple Heart: RRR, no murmur, no gallops, no rubs Respiratory: CTAB, no wheezes, no ronchi Gastrointestinal: soft, non-tender, non-distended, normal bowel sounds Extremities: no cyanosis, no clubbing Psychiatric - other findings: tearful, anxious Hosp A/P (1) JONATHAN (acute kidney injury) Code(s): N17.9 - ACUTE KIDNEY FAILURE, UNSPECIFIED Status: Acute (2) Hypercalcemia Code(s): E83.52 - HYPERCALCEMIA Status: Acute (3) DM2 (diabetes mellitus, type 2) Status: Chronic (4) HTN (hypertension) Code(s): I10 - ESSENTIAL (PRIMARY) HYPERTENSION Status: Chronic (5) Hypothyroidism Code(s): E03.9 - HYPOTHYROIDISM, UNSPECIFIED Status: Chronic (6) Diabetes Mellitus Type 2 in Nonobese Code(s): E11.9 - TYPE 2 DIABETES MELLITUS WITHOUT COMPLICATIONS Status: Chronic (7) Osteoporosis Code(s): M81.0 - AGE-RELATED OSTEOPOROSIS W/O CURRENT PATHOLOGICAL FRACTURE Status: Chronic - Plan * Acute Kidney Injury- her renal function has not improved- Check urine sodium and urine creatinine was checked, FENA is approximately 0.7% which suggests she is pre-renal- will increase her fluids, and re-assess in the AM * Hypercalcemia- ? etiology- this may be due to prolonged bed rest, or excessive calcium supplementation ( PTH is low )- Vitamin D levels are normal. low PTH levels. Increase the fluid rate and re-assess. * If renal function and hypercalcemia are not improved in the AM, will consult Nephrology * DM- blood glucose is stable- continue SSI, and Metformin is on hold * Hypothyroidism- her thyroid function tests are normal- continue Levothyroxine * Management of tibial fracture as per Orthopedics * * Patient seen and examined and discussed with Jose Tam MS-3. The patient was a bit drowsy earlier, but this has progressed during the morning. By the time I came to see her she was barely able to stay awake. She was able to tell me she is in the hospital, and the month is January, but she falls rapidly asleep. On exam she has developed rales in the bases. CXR was ordered stat by Orthopedic team and blood cultures. On CXR, it appears she may be volume overloaded. Will discontinue the IV fluids. Hold off on Lasix for now. Will treat empirically for infetion, pending culure results. Will check a Procalcitonin in the AM, to help determine if antibiotics can be de-escalated. Serum Calcium and creatinine have improved. Discussed with Dr. Jacobs.
[2020-02-21] MEDS: Acetaminophen 500 MG TAB PO PRN (09:17)
[2020-02-21 09:54] LABS: #Eosinphils 0.4 thou/uL (0.0-0.7); #Lymphocytes 0.9 thou/uL (1.20-3.40); #Monocytes 0.7 thou/uL (0.11-0.59); #Neutrophils 6.4 thou/uL (1.40-6.50); %Basophils 0.2 % (0.0-1.0); %Eosinophils 4.5 % (0.0-10.0); %Lymphocytes 10.2 % (21.0-51.0); %Monocytes 8.9 % (0.0-10.0); %Neutrophils 76.2 % (42.0-75.0); Hemoglobin 8.1 g/dL (12.0-16.0); Mean Corpuscular Hemoglobin 32.6 pg (27.0-31.0); Mean Corpuscular Volume 95.7 fL (78.0-98.0); Mean Platelet Volume 7.2 fL (7.4-10.4); Platelet Count 231 thou/uL (130-400); Red Blood Cell (RBC) Count 2.49 mill/uL (4.20-5.40); White Blood Cell (WBC) Count 8.4 thou/uL (4.8-10.8)
--- NOTE | 2020-02-21 10:58 | RAD ---
PORTABLE CHEST: HISTORY: Mental status change. Abnormal lung auscultation. COMPARISON: 12/07/2019. FINDINGS: Continued abnormal opacification of the left lung base consistent with left basilar infiltrate and/or consolidation with atelectasis. I cannot exclude small effusion. Density obscures the right CP ang le which may represent right basilar atelectasis. IMPRESSION: Bibasilar opacities more extensive on the left. POS: [facility]
--- NOTE | 2020-02-21 11:35 | CON ---
DATE OF CONSULTATION: 02/21/20 HISTORY OF PRESENT ILLNESS: Ms. Bolton is a 79-year-old white female who was admitted due to complaints of left knee pain. Of note, this patient suffered a left tibial fracture about 2 months ago. The fracture was treated with closed reduction in a splint. She was converted to a left knee brace. However, the patient was said to have worsening of her alignment and had a displacement of her fracture with development of a pressure ulcer. She is now admitted for further management. We are now being consulted for the acute kidney injury as well as findings of hypercalcemia. Please note, her calcium supplementation was discontinued on admission. She is currently on vitamin D, which we placed on hold temporarily. She has also received IV fluid, which has improved her creatinine. However, she developed some mild volume overload, and for that reason, currently the IV fluid has been placed on hold. REVIEW OF SYSTEMS: Positive for left knee pain. No nausea. No vomiting. Mild shortness of breath this a.m. No chest pain. No syncopal episode. No productive cough. No fever or chills. No gross hematuria. No dysuria. No urinary frequency. No abdominal pain. MEDICATIONS: Currently on: 1. Acetaminophen one tablet q.4 p.r.n. 2. Xanax 0.5 mg p.o. t.i.d. p.r.n. 3. Ascorbic acid 500 mg daily. 4. Cefepime 1 g IV q.24 h. 5. Cholecalciferol 5000 units daily, currently on hold. 6. Citalopram 20 mg nightly. 7. Flexeril 5 mg p.o. t.i.d. as needed. 8. Ferrous sulfate 325 mg b.i.d. 9. Gabapentin 300 mg p.o. b.i.d. 10. Heparin 5000 units subcutaneous b.i.d. 11. Levothyroxine 75 mcg daily. 12. Normal saline, currently on hold. 13. Rinvoc one tablet daily. 14. Protonix 40 mg tablet once a day. 15. Simvastatin 10 mg nightly. 16. Status post vancomycin. PAST MEDICAL HISTORY: 1. The patient has history of rheumatoid arthritis. 2. Hyperlipidemia. 3. Hypertension. 4. Depression. 5. Chronic pain. 6. Hypothyroidism. PAST SURGICAL HISTORY: 1. Status post ORIF of distal femur. 2. Status post right ankle surgery. 3. Status post colectomy. 4. Status post tonsillectomy. ALLERGIES: CIPRO AND LEVO. TRAUMA: Recently status post leg fracture. IMMUNIZATION: Up-to-date. HOSPITALIZATIONS: Please see past medical history. FAMILY HISTORY: No family history of ESRD. SOCIAL HISTORY: The patient does not smoke. No alcohol intake. No IV drug use. The patient lives with family. Sedentary lifestyle, the patient is mostly bed-bound. PHYSICAL EXAMINATION: VITAL SIGNS: Blood pressure is noted at 139/66, heart rate 99, respiratory rate 18, temperature 98.1, and O2 saturation 90% on room air. GENERAL: The patient is awake, comfortable, obese, not in overt distress. SKIN: Adequate turgor. HEENT: She has slightly pale conjunctivae. Anicteric sclerae. NECK: No neck mass. No carotid bruits. No JVD. CHEST: No deformities. LUNGS: Decreased breath sounds. HEART: Normal sinus rhythm. No murmur. No gallops. No rubs. ABDOMEN: Globular, soft, and nontender. No masses. EXTREMITIES: Trace edema. No deformities. LABORATORY DATA: On 02/21/2020: White count 8.4, hemoglobin 8.1, and hematocrit 23.8. Sodium 138, potassium 4.4, chloride 109, carbon dioxide 21, BUN 27, and creatinine 1.53. Calcium was noted at 11.2. On 02/20/2020, this was 12.7. On 02/19/2020, calcium was 12.4. Creatinine was also reviewed on 02/20/2020, this was 1.95. On 02/19/2020, creatinine 1.71. On 01/04/2020, creatinine was 1.0. Renal ultrasound was within normal. Urinalysis of 12/31/2019: No protein, red cells 0 to 3. On 02/20/2020: Urine creatinine 71, urine sodium was 35. ASSESSMENT AND PLAN: 1. Acute kidney injury, consider hemodynamically mediated renal dysfunction, improved with IV hydration. Also, the patient's lisinopril has been discontinued. Creatinine is much improved. There is no indication for any dialytic intervention. Continue to observe. 2. Hypercalcemia, unclear etiology, but this could be related from the intake of her calcium tablets and vitamin D. Her serum calcium is actually improved with IV hydration and discontinuation of her calcium tablets. I have decided to discontinue the vitamin D with this patient. In addition, PTH was noted to be suppressed, which could be a reflection of the hypercalcemia. If the serum calcium will not normalize, consider doing further workup, such as a PTH related peptide, [id number], [id number], and if needed, we can always do a urine and serum protein immunoelectrophoresis with this patient. At the moment, there is no reason for any treatment with hypercalcemia since this is only a mild hypercalcemia. Agree with current management. Job ID: [id number] ZURDO
--- NOTE | 2020-02-21 13:19 | PDOC.BPN ---
- Brief Progress Note Encounter Date: 02/21/20 Encounter Time: 13:18 Patient's condition has continued to decline. She has developed a fever, and is likely septic. Antibiotics ordered, but defaulted to a pm start time. I spoke with the nurse, and these will be given now. She is being moved to the [facility]. Consider re-swab for COVID.
[2020-02-21] MEDS: Ascorbic Acid 500 mg Chewable Tablet PO SCH (14:39)
[2020-02-21] MEDS: Vancomycin 1 GM in Premix Bag 1 BAG IVPB SCH (14:39)
[2020-02-21] MEDS: Ferrous Sulfate 325 MG TAB PO SCH ×2 (14:39→17:58)
[2020-02-21] MEDS: Heparin 5,000 UNITS/ML VIAL SC SCH ×2 (14:40→21:21)
[2020-02-21] MEDS: Gabapentin 300 MG CAP PO SCH ×2 (14:40→22:14)
[2020-02-21] MEDS: Cholecalciferol 1,000 UNITS (25 MCG) TAB PO SCH (16:09)
[2020-02-21 17:53] LABS: SARS-CoV-2 MS2 Positive; SARS-CoV-2 N Gene Negative; SARS-CoV-2 S Gene Negative; SARS-CoV-2 by NAA Not Detected (NotDetected); SARS-CoV-2 orf1ab Negative
[2020-02-21] MEDS: Cefepime 1 GM in Sodium Chloride 0.9% 100 ML IVPB SCH (17:53)
[2020-02-21] MEDS: Acetaminophen 650 MG Suppository PR PRN (18:16)
[2020-02-21] MEDS ORDERED: Vancomycin 1 GM in Premix Bag 1 BAG IVPB SCH (21:00)
[2020-02-21] MEDS ORDERED: Cefepime 1 GM in Sodium Chloride 0.9% 100 ML IVPB SCH (21:00)
[2020-02-21] MEDS: Citalopram 20 MG TAB PO SCH (22:14)
[2020-02-21] MEDS: Simvastatin 5 MG TAB PO SCH (22:14)
[2020-02-21] MEDS: Lactated Ringer's 1,000 ML IV SCH (22:31)
[2020-02-22 03:59] LABS: #Eosinphils 0.1 thou/uL (0.0-0.7); #Monocytes 0.8 thou/uL (0.11-0.59); #Neutrophils 6.5 thou/uL (1.40-6.50); %Basophils 0.4 % (0.0-1.0); %Eosinophils 0.8 % (0.0-10.0); %Lymphocytes 11.8 % (21.0-51.0); %Monocytes 9.3 % (0.0-10.0); %Neutrophils 77.8 % (42.0-75.0); Hemoglobin 8.5 g/dL (12.0-16.0); Mean Corpuscular HGB CONC 34.4 g/dL (32.0-36.0); Mean Corpuscular Hemoglobin 32.3 pg (27.0-31.0); Mean Corpuscular Volume 93.9 fL (78.0-98.0); Platelet Count 236 thou/uL (130-400); RBC Distribution Width 14.1 % (11.5-14.5); Red Blood Cell (RBC) Count 2.64 mill/uL (4.20-5.40); White Blood Cell (WBC) Count 8.3 thou/uL (4.8-10.8)
[2020-02-22 04:18] LABS: Anion Gap 16 mmol/L (10-20); BUN (Urea Nitrogen) 28 mg/dL (9.8-20.1); Calc. Creatinine Clearance 34 mL/min (70-130); Calcium 11.2 mg/dL (7.8-10.44); Carbon Dioxide 23 mmol/L (23-31); Chloride 108 mmol/L (98-107); Estimated GFR-MDRD 39; Glucose 175 mg/dL (83-110); Potassium 4.5 mmol/L (3.5-5.1); Sodium 142 mmol/L (136-145)
[2020-02-22] MEDS: Levothyroxine Sodium 75 MCG TAB PO SCH (05:02)
--- NOTE | 2020-02-22 11:03 | PRG ---
DATE OF SERVICE: 02/22/2020 Ms. Bolton is a 79 yo white female who was admitted for left knee pain and was said to have a worsening alignment and displacement of her fracture. She is being considered for left BKA. We are seeing this patient for acute kidney injury as well as hypercalcemia. She was empirically given volume repletion with significant improvement of the creatinine from a peak of 1.71 to a most recent value of 1.31. In addition, we are seeing her for her hypercalcemia at the same time. Hypercalcemia is slowly improving. Vitamin D as well as calcium tabs have been discontinued. She voices no new complaints. She denies any chest pain or shortness of breath. OBJECTIVE: VITAL SIGNS: Blood pressure 102/66, heart rate 91, respiratory rate 13, O2 saturation 100%. GENERAL: The patient is awake, alert, sitting comfortable, not in overt distress. SKIN: Adequate turgor. HEENT: She has a slightly pale conjunctivae. Anicteric sclerae. NECK: No neck mass. No carotid bruits. No JVD. CHEST: No deformities. LUNGS: Clear breath sounds. No wheezing. No crackles. HEART: Normal sinus rhythm. No murmurs, gallops, or rubs. ABDOMEN: Globular, soft, nontender, no masses. EXTREMITIES: No edema. No deformities. She has a left knee brace. MEDICATIONS: February 22, 2020, was reviewed. LABORATORY DATA: Laboratories of February 22, 2020, white count 8.2, hemoglobin 8.5. Sodium 142, potassium 4.5, chloride 108, carbon dioxide 23, BUN 20, creatinine 1.21, calcium 11.2. ASSESSMENT AND PLAN: 1. Acute kidney injury-superimposed hemodynamically mediated dysfunction, improved with volume repletion and adjustment of her medications. 2. Hypercalcemia. She has a milder hypercalcemia. It has been slowly improving from a peak of 12.4 to most recent value of 11.2. Due to the persistent hypercalcemia, we will do a more comprehensive workup with this patient. Please note, her PTH is suppressed. I have ordered a PTH related peptide, 25 hydroxy vitamin D, 125 hydroxy vitamin D, and a urine and serum protein immunoelectrophoresis to rule out possibility of other causes for the hypercalcemia. 3. Overall prognosis remains guarded. Recheck base met and CBC in a.m. Job ID: [id number] [facility]
[2020-02-22] MEDS: Ferrous Sulfate 325 MG TAB PO SCH ×2 (12:14→18:32)
[2020-02-22] MEDS: Ascorbic Acid 500 mg Chewable Tablet PO SCH (12:14)
[2020-02-22] MEDS: Gabapentin 300 MG CAP PO SCH ×2 (12:15→22:10)
[2020-02-22] MEDS: Heparin 5,000 UNITS/ML VIAL SC SCH ×2 (12:37→22:11)
[2020-02-22] MEDS: Vancomycin 1 GM in Premix Bag 1 BAG IVPB SCH (14:20)
[2020-02-22] MEDS: Lactated Ringer's 1,000 ML IV SCH (14:20)
[2020-02-22] MEDS: Cefepime 1 GM in Sodium Chloride 0.9% 100 ML IVPB SCH (14:20)
--- NOTE | 2020-02-22 15:53 | PDOC.HOSPP ---
- Subjective Encounter Date: 02/22/20 Encounter Time: 12:00 Subjective: awake, responds well to verbal stimuli no pain in her knee now no c/o chest pain, palp or sob - Objective Vital Signs & Weight: Vital Signs (12 hours) Temp Pulse Ox 02/22/20 15:38 99.6 F 02/22/20 12:04 99.3 F 02/22/20 08:00 98 02/22/20 07:22 98.8 F Weight Admit Weight 145 lb Weight 133 lb 3.2 oz Most Recent Monitor Data Heart Rate from ECG 99 NIBP 110/51 NIBP BP-Mean 70 Respiration from ECG 20 SpO2 96 I&O: 02/21/20 02/22/20 02/23/20 06:59 06:59 05:59 Intake Total 1740 920 Output Total 200 1100 Balance 1540 -180 Result Diagrams: 02/22/20 03:45 02/22/20 03:45 Additional Labs: Accuchecks 02/22/20 02/22/20 02/21/20 10:40 06:06 21:02 POC Glucose 185 H 198 H 204 H 02/21/20 02/21/20 02/21/20 17:58 11:26 09:05 POC Glucose 176 H 140 H 119 H 02/21/20 02/20/20 02/20/20 05:51 20:05 17:27 POC Glucose 110 H 153 H 107 H 02/20/20 11:21 POC Glucose 154 H Hospitalist ROS - Medication Medications: Active Medications Generic Name Dose Route Start Last Admin Trade Name Freq PRN Reason Stop Dose Admin Acetaminophen 1,000 mg 02/19/20 20:46 02/21/20 09:17 Acetaminophen 500 Mg Tab PO 1,000 mg Q6H PRN Administration Mild-Moderate Pain (1-5) Acetaminophen 650 mg 02/21/20 17:44 02/21/20 18:16 Acetaminophen 650 Mg Suppository [place] 650 mg Q4H PRN Administration Headache/Fever or Pain Acetaminophen/Codeine Phosphate 1 tab 02/19/20 20:39 02/20/20 21:26 Acetaminophen/Codeine 30-300mg Tablet PO 1 tab Q4H PRN Administration Moderate Pain (4-6) Ascorbic Acid 500 mg 02/20/20 09:00 02/22/20 12:14 Ascorbic Acid 500 Mg Chewable Tablet PO Not Given DAILY LOUISE Citalopram Hydrobromide 20 mg 02/19/20 21:00 02/21/20 22:14 Citalopram 20 Mg Tab PO Not Given HS [facility] Ferrous Sulfate 325 mg 02/20/20 08:00 02/22/20 12:14 Ferrous Sulfate 325 Mg Tab PO Not Given BID-WM [facility] Gabapentin 300 mg 02/19/20 21:00 02/22/20 12:15 Gabapentin 300 Mg Cap PO Not Given BID LOUISE Heparin Sodium (Porcine) 5,000 units 02/20/20 09:00 02/22/20 12:37 Heparin 5,000 Units/Ml Vial SC Not Given BID LOUISE Vancomycin HCl 1 gm/ Device 200 mls @ 200 mls/hr 02/21/20 15:00 02/22/20 14:20 IVPB 200 mls 1500 LOUISE Administration Cefepime HCl 1 gm/ Sodium 100 mls @ 200 mls/hr 02/21/20 14:00 02/22/20 14:20 Chloride IVPB 100 mls 1400 LOUISE Administration Lactated Ringer's 1,000 mls @ 60 mls/hr 02/21/20 18:30 02/22/20 14:20 Lactated Ringer's IV 1,000 mls .[id number] LOUISE Administration Levothyroxine Sodium 75 mcg 02/20/20 06:00 02/22/20 05:02 Levothyroxine Sodium 75 Mcg Tab PO Not Given 0600 [facility] Pantoprazole Sodium 20 mg 02/20/20 09:00 02/22/20 12:38 Pantoprazole 40 Mg Tab PO Not Given DAILY [facility] Simvastatin 10 mg 02/19/20 21:00 02/21/20 22:14 Simvastatin 5 Mg Tab PO Not Given HS LOUISE - Exam General Appearance: awake alert Eye: PERRL, anicteric sclera ENT: no oropharyngeal lesions, dry oral mucosa Neck: supple, no JVD Heart: RRR, no murmur Respiratory: no wheezes, no rales Gastrointestinal: soft, non-tender, non-distended, normal bowel sounds Extremities: no edema Extremities - other findings: left leg area has valgus deformity Neurological: cranial nerve grossly intact, no focal deficits Hosp A/P (1) Fracture of proximal end of left tibia with delayed healing Code(s): S82.102G - UNSP FX UPPER END OF L TIBIA, SUBS FOR CLOS FX W DELAY HEAL Status: Chronic Qualifiers: Fracture type: closed (2) JONATHAN (acute kidney injury) Code(s): N17.9 - ACUTE KIDNEY FAILURE, UNSPECIFIED Status: Resolved (3) Chronic anemia Code(s): D64.9 - ANEMIA, UNSPECIFIED Status: Chronic (4) DM2 (diabetes mellitus, type 2) Status: Chronic Qualifiers: Diabetes mellitus buttermaker helper insulin use: without retirement use (5) HLD (hyperlipidemia) Code(s): E78.5 - HYPERLIPIDEMIA, UNSPECIFIED Status: Chronic Qualifiers: Hyperlipidemia type: unspecified Qualified Code(s): E78.5 - Hyperlipidemia, unspecified (6) HTN (hypertension) Code(s): I10 - ESSENTIAL (PRIMARY) HYPERTENSION Status: Chronic Qualifiers: Hypertension type: essential hypertension Qualified Code(s): I10 - Essential (primary) hypertension (7) Hypothyroidism Code(s): E03.9 - HYPOTHYROIDISM, UNSPECIFIED Status: Chronic Qualifiers: Hypothyroidism type: unspecified Qualified Code(s): E03.9 - Hypothyroidism, unspecified (8) Anxiety Code(s): F41.9 - ANXIETY DISORDER, UNSPECIFIED Status: Chronic (9) GERD (gastroesophageal reflux disease) Code(s): K21.9 - GASTRO-ESOPHAGEAL REFLUX DISEASE WITHOUT ESOPHAGITIS Status: Chronic Qualifiers: Esophagitis presence: esophagitis presence not specified Qualified Code(s): K21.9 - Gastro-esophageal reflux disease without esophagitis (10) Major depression Code(s): F32.9 - MAJOR DEPRESSIVE DISORDER, SINGLE EPISODE, UNSPECIFIED Status: Chronic Qualifiers: Major depression recurrence: unspecified whether recurrent Active/Remission status: in full remission Qualified Code(s): F32.5 - Major depressive disorder, single episode, in full remission (11) Osteoporosis Code(s): M81.0 - AGE-RELATED OSTEOPOROSIS W/O CURRENT PATHOLOGICAL FRACTURE Status: Chronic Qualifiers: Osteoporosis type: unspecified (12) Rheumatoid arthritis Code(s): M06.9 - RHEUMATOID ARTHRITIS, UNSPECIFIED Status: Chronic Qualifiers: Rheumatoid arthritis location: unspecified site - Plan may transfer to [facility] floor hemostable, prelim blood cs are -ve, has tmax of 99 has severe valgus deformity of left knee with prox tibial fracture and di slocation continue cefepime and vanc, synthroid, zocor, celexa, neurontin, protonix and iron avoid narcotics before surgery unless its severe pain prior echo showed normal ef with no significant valvular issues (mild ) has long standing h/o RA and osteoporosis iv fluids low dose, encourage po intake renal function almost baseline for likely aka in am may give albumin infusions if needed for vol expansion and prevent jonathan post procedure will likely need a unit of blood periop/post op, Hb around 8g is cleared for surgery in am with acceptable risk given severe morbidity otherwise if family agrees, d/w orthopedic surgery team.
[2020-02-22] MEDS: Simvastatin 5 MG TAB PO SCH (22:09)
[2020-02-22] MEDS: Citalopram 20 MG TAB PO SCH (22:10)
[2020-02-23] MEDS: Lactated Ringer's 1,000 ML IV SCH ×2 (06:29→21:17)
[2020-02-23] MEDS: Levothyroxine Sodium 75 MCG TAB PO SCH (06:35)
[2020-02-23 07:10] LABS: #Eosinphils 0.3 thou/uL (0.0-0.7); #Lymphocytes 1.1 thou/uL (1.20-3.40); #Monocytes 0.8 thou/uL (0.11-0.59); #Neutrophils 4.9 thou/uL (1.40-6.50); %Basophils 0.5 % (0.0-1.0); %Eosinophils 4.8 % (0.0-10.0); %Lymphocytes 15.1 % (21.0-51.0); %Monocytes 10.6 % (0.0-10.0); Hemoglobin 7.1 g/dL (12.0-16.0); Mean Corpuscular HGB CONC 34.3 g/dL (32.0-36.0); Mean Corpuscular Hemoglobin 32.5 pg (27.0-31.0); Mean Corpuscular Volume 94.7 fL (78.0-98.0); Mean Platelet Volume 7.1 fL (7.4-10.4); Platelet Count 204 thou/uL (130-400); RBC Distribution Width 14.2 % (11.5-14.5); Red Blood Cell (RBC) Count 2.17 mill/uL (4.20-5.40); White Blood Cell (WBC) Count 7.2 thou/uL (4.8-10.8)
[2020-02-23] MEDS ORDERED: CEFAZOLIN 2 GM in Premix Bag 1 BAG IVPB SCH (07:15)
[2020-02-23 07:32] LABS: Anion Gap 14 mmol/L (10-20); BUN (Urea Nitrogen) 24 mg/dL (9.8-20.1); Calc. Creatinine Clearance 43 mL/min (70-130); Calcium 10.4 mg/dL (7.8-10.44); Carbon Dioxide 24 mmol/L (23-31); Chloride 105 mmol/L (98-107); Estimated GFR-MDRD 52; Glucose 105 mg/dL (83-110); Potassium 3.5 mmol/L (3.5-5.1); Sodium 139 mmol/L (136-145)
[2020-02-23] MEDS: Ascorbic Acid 500 mg Chewable Tablet PO SCH (09:03)
[2020-02-23] MEDS: Heparin 5,000 UNITS/ML VIAL SC SCH ×2 (09:03→21:44)
[2020-02-23] MEDS: Gabapentin 300 MG CAP PO SCH ×2 (09:03→21:12)
[2020-02-23] MEDS: Ferrous Sulfate 325 MG TAB PO SCH ×2 (09:03→17:54)
--- NOTE | 2020-02-23 09:53 | PRG ---
DATE OF SERVICE: 02/23/2020 SUBJECTIVE: Ms. Bolton is a 79-year-old white female who was initially seen by the Renal Service for her hypercalcemia and acute kidney injury. She had a superimposed hemodynamic renal dysfunction, which was improved with renal hydration. She was also noted to be hypercalcemic. Her calcium has been improving overtime. We feel that this could be from iatrogenically-induced hypercalcemia. She has been on vitamin D and calcium supplementation. This has been placed on hold. 25-hydroxy vitamin D was checked and was normal. We are still awaiting for a PTH related peptide and 125-hydroxy vitamin D. SPEP-UPEP have also been done. She voices no new complaints today. She is scheduled for a left knee amputation today. Denies any chest pain or shortness of breath. OBJECTIVE: VITAL SIGNS: Blood pressure is 108/49, heart rate 85, respiratory rate 18, O2 saturation 100%. GENERAL: The patient is awake, alert, comfortable, not in distress. SKIN: Adequate turgor. HEENT: She has a slightly pale conjunctivae. Anicteric sclerae. NECK: No neck mass. No carotid bruits. No JVD. CHEST: No deformities. LUNGS: Clear breath sounds. No wheezing. No crackles. HEART: Normal sinus rhythm. No murmur. No gallops. No rubs. ABDOMEN: Globular, soft, and nontender. No masses. EXTREMITIES: No edema. No deformities. MEDICATIONS: Medications of February 23, 2020, were reviewed. LABORATORY DATA: Laboratories of February 23, 2020; sodium 139, potassium 3.5, chloride 105, carbon dioxide 24, BUN 24, creatinine 1.03, calcium 10.4. ASSESSMENT AND PLAN: 1. Hypercalcemia - much improved. It is within normal. Still awaiting for the PTH related peptide, SPEP-UPEP as well as 125-hydroxy vitamin D. With improved calcium, I feel that these labs might be normal. 2. Acute kidney injury - superimposed hemodynamically-mediated dysfunction. Holding off nonsteroidal antiinflammatory drugs. In addition, the patient is status post volume repletion. No indication for any dialytic dysfunction. No indication for any dialysis with this patient. 3. Status post comminuted fracture of left leg. The patient is for a planned left below-knee amputation. Job ID: [id number]
[2020-02-23] MEDS ORDERED: Fentanyl 100 MCG/2 ML VIAL ONE ×3 (10:50→13:53)
[2020-02-23] MEDS ORDERED: Lidocaine 2% Jelly 5 ML TUBE ONE (10:50)
[2020-02-23] MEDS ORDERED: PROPOFOL 200 MG/20 ML VIAL ONE (11:50)
[2020-02-23] MEDS ORDERED: Lidocaine 1% PF 5 ML VIAL ONE (11:50)
[2020-02-23] MEDS ORDERED: Glycopyrrolate 0.2 MG/ML 5 ML SYRINGE ONE (11:50)
[2020-02-23] MEDS ORDERED: PHENYLEPHRINE-NS 100 MCG/ML 10 ML SYRINGE ONE (11:50)
[2020-02-23] MEDS ORDERED: Ondansetron PF 4 MG/2 ML Vial ONE (11:50)
[2020-02-23] MEDS ORDERED: Rocuronium Bromide 10 MG/ML (10ML VIAL) ONE (11:50)
[2020-02-23] MEDS ORDERED: Dexamethasone 20 MG/5 ML VIAL ONE (11:50)
[2020-02-23] MEDS ORDERED: Promethazine HCl 25 MG/ML VIAL SLOW IVP PRN (13:35)
[2020-02-23] MEDS ORDERED: Promethazine HCl 25 MG/ML VIAL IM PRN (13:35)
[2020-02-23] MEDS ORDERED: Ondansetron HCl/PF 4 MG/2 ML Vial IVP PRN (13:35)
--- NOTE | 2020-02-23 13:46 | PDOC.HOSPP ---
- Subjective Encounter Date: 02/23/20 Encounter Time: 09:00 Subjective: awake, sitting on bed not in distress, no sob or chest pain responds well to verbal stimuli is npo for surgery today - Objective Vital Signs & Weight: Vital Signs (12 hours) Temp Pulse Ox 02/23/20 07:22 97 02/23/20 07:19 98.8 F 02/23/20 03:46 97.7 F Weight Admit Weight 145 lb Weight 133 lb 3.2 oz Most Recent Monitor Data Heart Rate from ECG 81 NIBP 113/61 NIBP BP-Mean 78 Respiration from ECG 18 SpO2 100 I&O: 02/22/20 02/23/20 02/24/20 07:59 06:59 06:59 Intake Total Output Total Balance Result Diagrams: 02/23/20 06:58 02/23/20 06:58 Additional Labs: Accuchecks 02/23/20 02/22/20 02/22/20 05:31 20:23 16:43 POC Glucose 89 162 H 154 H Hospitalist ROS - Medication Medications: Active Medications Generic Name Dose Route Start Last Admin Trade Name Freq PRN Reason Stop Dose Admin Acetaminophen 1,000 mg 02/19/20 20:46 02/21/20 09:17 Acetaminophen 500 Mg Tab PO 1,000 mg Q6H PRN Administration Mild-Moderate Pain (1-5) Acetaminophen 650 mg 02/21/20 17:44 02/21/20 18:16 Acetaminophen 650 Mg Suppository [place] 650 mg Q4H PRN Administration Headache/Fever or Pain Acetaminophen/Codeine Phosphate 1 tab 02/19/20 20:39 02/20/20 21:26 Acetaminophen/Codeine 30-300mg Tablet PO 1 tab Q4H PRN Administration Moderate Pain (4-6) Ascorbic Acid 500 mg 02/20/20 09:00 02/23/20 09:03 Ascorbic Acid 500 Mg Chewable Tablet PO Not Given DAILY LOUISE Citalopram Hydrobromide 20 mg 02/19/20 21:00 02/22/20 22:10 Citalopram 20 Mg Tab PO 20 mg HS LOUISE Administration Ferrous Sulfate 325 mg 02/20/20 08:00 02/23/20 09:03 Ferrous Sulfate 325 Mg Tab PO Not Given BID-WM [facility] Gabapentin 300 mg 02/19/20 21:00 02/23/20 09:03 Gabapentin 300 Mg Cap PO Not Given BID LOUISE Heparin Sodium (Porcine) 5,000 units 02/20/20 09:00 02/23/20 09:03 Heparin 5,000 Units/Ml Vial SC Not Given BID LOUISE Vancomycin HCl 1 gm/ Device 200 mls @ 200 mls/hr 02/21/20 15:00 02/22/20 14:20 IVPB 200 mls 1500 LOUISE Administration Cefepime HCl 1 gm/ Sodium 100 mls @ 200 mls/hr 02/21/20 14:00 02/22/20 14:20 Chloride IVPB 100 mls 1400 LOUISE Administration Lactated Ringer's 1,000 mls @ 60 mls/hr 02/21/20 18:30 02/23/20 06:29 Lactated Ringer's IV 1,000 mls .[id number] LOUISE Administration Levothyroxine Sodium 75 mcg 02/20/20 06:00 02/23/20 06:35 Levothyroxine Sodium 75 Mcg Tab PO 75 mcg 0600 LOUISE Administration Pantoprazole Sodium 20 mg 02/20/20 09:00 02/23/20 09:01 Pantoprazole 40 Mg Tab PO 20 mg DAILY LOIUSE Administration Simvastatin 10 mg 02/19/20 21:00 02/22/20 22:09 Simvastatin 5 Mg Tab PO 10 mg HS LOUISE Administration - Exam General Appearance: awake alert Eye: PERRL, anicteric sclera Eye - other findings: pallor+ ENT: no oropharyngeal lesions Neck: supple, no JVD Heart: RRR, no murmur Respiratory: no wheezes, no rales Gastrointestinal: soft, non-tender, non-distended, normal bowel sounds Extremities - other findings: left knee valgus deformity Neurological: cranial nerve grossly intact, no focal deficits Hosp A/P (1) Fracture of proximal end of left tibia with delayed healing Code(s): S82.102G - UNSP FX UPPER END OF L TIBIA, SUBS FOR CLOS FX W DELAY HEAL Status: Chronic Qualifiers: Fracture type: closed (2) JONATHAN (acute kidney injury) Code(s): N17.9 - ACUTE KIDNEY FAILURE, UNSPECIFIED Status: Resolved (3) Chronic anemia Code(s): D64.9 - ANEMIA, UNSPECIFIED Status: Chronic (4) DM2 (diabetes mellitus, type 2) Status: Chronic Qualifiers: Diabetes mellitus [facility] insulin use: without rn long term care use (5) HLD (hyperlipidemia) Code(s): E78.5 - HYPERLIPIDEMIA, UNSPECIFIED Status: Chronic Qualifiers: Hyperlipidemia type: unspecified Qualified Code(s): E78.5 - Hyperlipidemia, unspecified (6) HTN (hypertension) Code(s): I10 - ESSENTIAL (PRIMARY) HYPERTENSION Status: Chronic Qualifiers: Hypertension type: essential hypertension Qualified Code(s): I10 - Essential (primary) hypertension (7) Hypothyroidism Code(s): E03.9 - HYPOTHYROIDISM, UNSPECIFIED Status: Chronic Qualifiers: Hypothyroidism type: unspecified Qualified Code(s): E03.9 - Hypothyroidism, unspecified (8) Anxiety Code(s): F41.9 - ANXIETY DISORDER, UNSPECIFIED Status: Chronic (9) GERD (gastroesophageal reflux disease) Code(s): K21.9 - GASTRO-ESOPHAGEAL REFLUX DISEASE WITHOUT ESOPHAGITIS Status: Chronic Qualifiers: Esophagitis presence: esophagitis presence not specified Qualified Code(s): K21.9 - Gastro-esophageal reflux disease without esophagitis (10) Major depression Code(s): F32.9 - MAJOR DEPRESSIVE DISORDER, SINGLE EPISODE, UNSPECIFIED Status: Chronic Qualifiers: Major depression recurrence: unspecified whether recurrent Active/Remission status: in full remission Qualified Code(s): F32.5 - Major depressive disorder, single episode, in full remission (11) Osteoporosis Code(s): M81.0 - AGE-RELATED OSTEOPOROSIS W/O CURRENT PATHOLOGICAL FRACTURE Status: Chronic Qualifiers: Osteoporosis type: unspecified (12) Rheumatoid arthritis Code(s): M06.9 - RHEUMATOID ARTHRITIS, UNSPECIFIED Status: Chronic Qualifiers: Rheumatoid arthritis location: unspecified site - Plan may transfer to medr floor post op if stable hemostable, prelim blood cs are -ve has severe valgus deformity of left knee with prox tibial fracture and dislocation for likely aka today. continue cefepime and vanc, synthroid, zocor, celexa, neurontin, protonix and iron avoid narcotics before surgery unless its severe pain prior echo showed normal ef with no significant valvular issues (mild ) has long standing h/o RA and osteoporosis iv fluids low dose, encourage po intake post op renal function almost baseline may give albumin infusions if needed for vol expansion and prevent jonathan post procedure will likely need a unit of blood periop/post op, Hb around 7g
[2020-02-23] MEDS: Fentanyl 100 MCG/2 ML VIAL SLOW IVP PRN ×2 (15:59→21:03)
[2020-02-23] MEDS: Cefepime 1 GM in Sodium Chloride 0.9% 100 ML IVPB SCH (16:00)
[2020-02-23] MEDS: Vancomycin 1 GM in Premix Bag 1 BAG IVPB SCH (16:01)
[2020-02-23 16:33] LABS: Vancomycin, Trough 13.5 ug/mL
[2020-02-23] MEDS: HumaLOG 300 UNITS/3 ML VIAL SC PRN (19:03)
[2020-02-23] MEDS: Acetaminophen/Codeine 30-300mg Tablet PO PRN (19:05)
[2020-02-23] MEDS: Simvastatin 5 MG TAB PO SCH (21:12)
[2020-02-23] MEDS: Citalopram 20 MG TAB PO SCH (21:13)
[2020-02-24 03:10] LABS: #Monocytes 1.1 thou/uL (0.11-0.59); #Neutrophils 8.6 thou/uL (1.40-6.50); %Basophils 0.1 % (0.0-1.0); %Eosinophils 0.3 % (0.0-10.0); %Lymphocytes 9.6 % (21.0-51.0); %Monocytes 9.9 % (0.0-10.0); %Neutrophils 80.2 % (42.0-75.0); Hemoglobin 7.3 g/dL (12.0-16.0); Mean Corpuscular HGB CONC 34.9 g/dL (32.0-36.0); Mean Corpuscular Hemoglobin 32.7 pg (27.0-31.0); Mean Corpuscular Volume 93.9 fL (78.0-98.0); Mean Platelet Volume 7.3 fL (7.4-10.4); Platelet Count 235 thou/uL (130-400); RBC Distribution Width 14.2 % (11.5-14.5); Red Blood Cell (RBC) Count 2.23 mill/uL (4.20-5.40); White Blood Cell (WBC) Count 10.7 thou/uL (4.8-10.8)
[2020-02-24 03:45] LABS: Anion Gap 14 mmol/L (10-20); BUN (Urea Nitrogen) 26 mg/dL (9.8-20.1); Calc. Creatinine Clearance 40 mL/min (70-130); Calcium 9.8 mg/dL (7.8-10.44); Carbon Dioxide 24 mmol/L (23-31); Chloride 104 mmol/L (98-107); Estimated GFR-MDRD 48; Glucose 188 mg/dL (83-110); Potassium 4.4 mmol/L (3.5-5.1); Sodium 138 mmol/L (136-145)
[2020-02-24] MEDS: HumaLOG 300 UNITS/3 ML VIAL SC PRN ×2 (06:35→13:40)
[2020-02-24] MEDS: Levothyroxine Sodium 75 MCG TAB PO SCH (06:35)
[2020-02-24] MEDS: Ferrous Sulfate 325 MG TAB PO SCH ×2 (08:33→18:48)
[2020-02-24] MEDS: Heparin 5,000 UNITS/ML VIAL SC SCH ×2 (08:34→20:20)
[2020-02-24] MEDS: Gabapentin 300 MG CAP PO SCH ×3 (08:34→20:19)
[2020-02-24] MEDS: Fentanyl 100 MCG/2 ML VIAL SLOW IVP PRN ×2 (10:01→14:32)
[2020-02-24] MEDS: Ascorbic Acid 500 mg Chewable Tablet PO SCH (10:02)
--- NOTE | 2020-02-24 10:35 | OP ---
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 SURGICAL PROCEDURE: Left above knee amputation. ANESTHESIA: General. SOCIAL WORK ASSISTANT: Wiley. TOURNIQUET TIME: 48 minutes at 300 mmHg. ESTIMATED BLOOD LOSS: 150 mL. COMPLICATIONS: None. DRAINS: None. SPECIMENS: None. OUTCOME: Satisfactory. INDICATIONS FOR PROCEDURE: Ms. Bolton is a 79-year-old lady, who has had multiple fractures of her left lower extremity including a hip fracture, an intercondylar and supracondylar distal femur fracture, and more recently a tibial plateau fracture with displacement. The patient has severe osteopenia of the bones and as such, it was felt that surgical stabilization of the plateau given its alignment and the poor bone quality would not result in a good outcome. As such, we attempted to treat this fracture with nonsurgical management and bracing. However, she has gone on to a displaced and posterior subluxed tibia with nonunion. There is now some pressure on the neurovascular bundle posteriorly as well as beginnings of a pressure ulceration at the anterior knee. We have had extensive talks with the patient and her family regarding treatment options that include, but are not limited to, knee arthrodesis versus above knee amputation. After this extensive conversation, including risks and benefits, we have decided on an above knee amputation. Informed consent has been obtained. I believe all questions have been answered. DESCRIPTION OF PROCEDURE: The patient was brought to the operating room and a time-out performed, followed by induction of general anesthesia. Next, skin incisions were marked out at the distal thigh. These incisions were all proximal to the small pressure ulcer at the anterior knee and felt to be in areas of uninvolved skin with no evidence of infection. Next, a fishmouth type incision was made in anticipation of a femoral cut approximately 14 cm above the joint line. After the skin was sharply incised, dissection was carried down anteriorly through the quadriceps tendon down to the level of the femur. Next, an oscillating saw was used to cut the femur. The distal stump of the femur was then grasped with bone tenaculums; however; her bone was so thin and fragile that even just grasping with bone tenaculum resulted in crushing of the bone. With reflection of the bone, dissection was then carried down posteriorly to the femur. The neurovascular bundle was identified and this was ligated in a stepwise fashion. It should be noted that the tourniquet was up at this point in time. The femoral vein and artery were identified. The vein addressed first. A stick tie was used with 0 silk to perform the initial ligature. This was followed by a circumferential ligature of silk up above the stick tie. The vein was then cut. The artery was ligated in identical fashion and following the transection of these vessels, they retracted above the level of the bone cut. The saphenous nerve and saphenous vein also identified. Also ligated the nerve cut above the level of the amputation bone site. The dissection was then carried through the hamstrings and then posterolaterally through the biceps femoris, identifying the sciatic nerve. At the level of the cut, the nerve had already split into a tibial and peroneal segment. However, as I tracked the sciatic nerve up above the level of the bone cut, there was basically just one sciatic nerve bundle. This was ligated with 0 Vicryl incorporating the perineural blood vessels. Once ligated, the nerve was cupped below this ligature and the nerve retracted above the level of the bone cut and was free and not tethered to any tissue. The amputation was then completed. At this point, some fat was debrided and the adductor sanjuanita tendon was identified. Two drill holes were placed at the anterior and lateral aspect of the femoral bone cut and then #2 Ethibond suture passed through these drill holes and then a Krackow type stitch placed through the adductor bringing it up against the end of the femur and securely against the femur, this while the leg was held in adduction. This provided the first step of the myodesis. Next, the hamstring tendons were sutured to the posterior aspect of the adductor and a portion of the quadriceps also attached to the adductor. This provided reasonable stability and soft tissue coverage of the bony stump. The wound was then thoroughly irrigated with Pulsavac and then further closed with anterior fascia brought over the end of the bone and sutured with 0 Vicryl, followed by 2-0 Vicryl and then nacho for the final skin closure. At the completion of this, Xeroform and gauze and compression wrap dressing applied to the leg. Tourniquet was let down prior to final closure to ensure that all the vessels had been identified and adequately ligated. Total tourniquet time was 48 minutes. There were no complications. The patient tolerated the procedure well. Job ID: [id number]
[2020-02-24] MEDS: Lactated Ringer's 1,000 ML IV SCH (13:39)
[2020-02-24] MEDS: Cefepime 1 GM in Sodium Chloride 0.9% 100 ML IVPB SCH (13:39)
[2020-02-24] MEDS: Polyethylene Glycol 3350 17 GM Packet PO PRN (13:43)
[2020-02-24] MEDS: Vancomycin 1 GM in Premix Bag 1 BAG IVPB SCH (14:26)
[2020-02-24 14:47] LABS: Hemoglobin 7.9 g/dL (12.0-16.0); Platelet Count 201 thou/uL (130-400)
--- NOTE | 2020-02-24 17:50 | PDOC.HOSPP ---
- Subjective Encounter Date: 02/24/20 Encounter Time: 11:30 Subjective: Patient seen and examined for medical management. Appears comfortable. Denies any chest pain, shortness of breath, nausea or vomiting. - Objective Vital Signs & Weight: Vital Signs (12 hours) Temp Pulse Resp BP BP Pulse Ox 02/24/20 16:05 98.0 F 89 20 114/65 100 02/24/20 13:45 78 19 02/24/20 12:14 99.1 F 18 125/60 99 02/24/20 11:47 99.3 F 20 118/52 L 100 02/24/20 11:00 99.2 F 02/24/20 08:00 98.8 F 02/24/20 07:40 100 02/24/20 06:56 72 10 L Weight Admit Weight 145 lb Weight 133 lb 3.2 oz Most Recent Monitor Data Heart Rate from ECG 102 NIBP 103/50 NIBP BP-Mean 67 Respiration from ECG 14 SpO2 96 I&O: 02/23/20 02/24/20 02/25/20 06:59 06:59 06:59 Intake Total 1940 350 Output Total 100 Balance 1840 350 Result Diagrams: 02/24/20 14:27 02/24/20 03:00 Additional Labs: Accuchecks 02/24/20 02/24/20 02/24/20 16:36 11:49 05:21 POC Glucose 133 H 163 H 171 H 02/23/20 20:31 POC Glucose 271 H Abnormal Lab Results - Last 48 hrs 02/23/20 06:58: BUN 24 H 02/23/20 06:58: RBC 2.17 L, Hgb 7.1 L, Hct 20.6 L, MCH 32.5 H, MPV 7.1 L, Lymphocytes % 15.1 L, Monocytes % 10.6 H, Lymphocytes # 1.1 L, Monocytes # 0.8 H 02/24/20 03:00: BUN 26 H, Creatinine 1.11 H 02/24/20 03:00: RBC 2.23 L, Hgb 7.3 L, Hct 20.9 L, MCH 32.7 H, MPV 7.3 L, Neutrophils % 80.2 H, Lymphocytes % 9.6 L, Neutrophils # 8.6 H, Lymphocytes # 1.0 L, Monocytes # 1.1 H 02/24/20 07:00: Crossmatch See Detail 02/24/20 14:27: Hgb 7.9 L, Hct 22.7 L Microbiology - Entire Visit 02/21/20 09:43 Venous blood - Right Hand Blood Culture - Preliminary NO GROWTH AT 48 HOURS 02/21/20 09:43 Venous blood - Right Arm Blood Culture - Preliminary NO GROWTH AT 48 HOURS EKG Reviewed by me: Yes (Sinus rhythm on telemetry) Hospitalist ROS - Review of Systems Respiratory: denies: cough, dry, shortness of breath, hemoptysis, SOB with excertion, pleuritic pain, sputum, wheezing, other Cardiovascular: denies: chest pain, palpitations, orthopnea, paroxysmal noc. dyspnea, edema, light headedness, other - Medication Medications: Active Medications Generic Name Dose Route Start Last Admin Trade Name Freq PRN Reason Stop Dose Admin Acetaminophen 1,000 mg 02/19/20 20:46 02/21/20 09:17 Acetaminophen 500 Mg Tab PO 1,000 mg Q6H PRN Administration Mild-Moderate Pain (1-5) Acetaminophen 650 mg 02/21/20 17:44 02/21/20 18:16 Acetaminophen 650 Mg Suppository SC 650 mg Q4H PRN Administration Headache/Fever or Pain Acetaminophen/Codeine Phosphate 1 tab 02/19/20 20:39 02/23/20 19:05 Acetaminophen/Codeine 30-300mg Tablet PO 1 tab Q4H PRN Administration Moderate Pain (4-6) Albuterol/Ipratropium 3 ml 02/23/20 15:00 02/24/20 13:45 Ipratropium/Albuterol Sulfate 3 Ml Neb NEB 3 ml QID-RT LOUISE Administration Ascorbic Acid 500 mg 02/20/20 09:00 02/24/20 10:02 Ascorbic Acid 500 Mg Chewable Tablet PO 500 mg DAILY OLUISE Administration Citalopram Hydrobromide 20 mg 02/19/20 21:00 02/23/20 21:13 Citalopram 20 Mg Tab PO 20 mg HS LOUISE Administration Cyclobenzaprine HCl 5 mg 02/19/20 20:46 02/24/20 10:01 Cyclobenzaprine 10 Mg Tab PO 5 mg TIDPRN PRN Administration Muscle Spasm Fentanyl 50 mcg 02/19/20 20:39 02/24/20 14:32 Fentanyl 100 Mcg/2 Ml Vial SLOW IVP 50 mcg Q30M PRN Administration Severe breakthrough pain Ferrous Sulfate 325 mg 02/20/20 08:00 02/24/20 08:33 Ferrous Sulfate 325 Mg Tab PO 325 mg BID-WM LOUISE Administration Gabapentin 300 mg 02/23/20 21:00 02/24/20 14:26 Gabapentin 300 Mg Cap PO 300 mg TID LOUISE Administration Heparin Sodium (Porcine) 5,000 units 02/20/20 09:00 02/24/20 08:34 Heparin 5,000 Units/Ml Vial SC Not Given BID LOUISE Vancomycin HCl 1 gm/ Device 200 mls @ 200 mls/hr 02/21/20 15:00 02/24/20 14:26 IVPB 200 mls 1500 LOUISE Administration Cefepime HCl 1 gm/ Sodium 100 mls @ 200 mls/hr 02/21/20 14:00 02/24/20 13:39 Chloride IVPB 100 mls 1400 LOUISE Administration Lactated Ringer's 1,000 mls @ 60 mls/hr 02/21/20 18:30 02/24/20 13:39 Lactated Ringer's IV 1,000 mls .[id number] LOUISE Administration Insulin Human Lispro 0 units 02/20/20 03:19 02/24/20 13:40 Humalog 300 Units/3 Ml Vial SC 2 unit .MILD SLIDING SCALE PRN Administration Mild Correctional Scale Levothyroxine Sodium 75 mcg 02/20/20 06:00 02/24/20 06:35 Levothyroxine Sodium 75 Mcg Tab PO 75 mcg 0600 LOUISE Administration Pantoprazole Sodium 20 mg 02/20/20 09:00 02/24/20 08:33 Pantoprazole 40 Mg Tab PO 20 mg DAILY LOUISE Administration Polyethylene Glycol 17 gm 02/19/20 20:46 02/24/20 13:43 Polyethylene Glycol 3350 17 Gm Packet PO 17 gm DAILY PRN Administration Constipation Simvastatin 10 mg 02/19/20 21:00 02/23/20 21:12 Simvastatin 5 Mg Tab PO 10 mg HS LOUISE Administration - Exam General Appearance: NAD Neck: supple, no JVD Heart: RRR, no gallops Respiratory: no wheezes, no ronchi Gastrointestinal: soft, non-tender, normal bowel sounds Extremities: no cyanosis Neurological: no new deficit Hosp A/P - Plan DVT proph w/heparin, DVT proph w/SCDs Acute kidney injury on CKD stage III Hypertension Hyperlipidemia Diabetes mellitus type 2 Hypothyroidism Hypomagnesemia Hypercalcemia DJD Plan: Hypercalcemia work-up in progress. Recheck magnesium in a.m. A.m. labs. Ivan sfer to surgical. Continue levothyroxine, Celexa and gabapentin. Discontinue IV fluids when tolerating p.o. Continue DVT prophylaxis. Patient understands above plan of care
[2020-02-24] MEDS: Simvastatin 5 MG TAB PO SCH (20:19)
[2020-02-24] MEDS: Citalopram 20 MG TAB PO SCH (20:19)
[2020-02-25 00:58] LABS: Hemoglobin 9.4 g/dL (12.0-16.0); Platelet Count 191 thou/uL (130-400)
[2020-02-25] MEDS: Levothyroxine Sodium 75 MCG TAB PO SCH (05:10)
[2020-02-25] MEDS: Lactated Ringer's 1,000 ML IV SCH ×2 (05:16→13:48)
[2020-02-25 05:23] LABS: #Eosinphils 0.5 thou/uL (0.0-0.7); #Lymphocytes 1.4 thou/uL (1.20-3.40); #Monocytes 1.1 thou/uL (0.11-0.59); #Neutrophils 4.8 thou/uL (1.40-6.50); %Basophils 0.3 % (0.0-1.0); %Eosinophils 6.2 % (0.0-10.0); %Lymphocytes 18.4 % (21.0-51.0); %Monocytes 13.7 % (0.0-10.0); %Neutrophils 61.4 % (42.0-75.0); Hemoglobin 9.4 g/dL (12.0-16.0); Mean Corpuscular HGB CONC 35.6 g/dL (32.0-36.0); Mean Corpuscular Hemoglobin 31.4 pg (27.0-31.0); Mean Corpuscular Volume 88.3 fL (78.0-98.0); Mean Platelet Volume 7.1 fL (7.4-10.4); Platelet Count 188 thou/uL (130-400); RBC Distribution Width 16.6 % (11.5-14.5); White Blood Cell (WBC) Count 7.8 thou/uL (4.8-10.8)
[2020-02-25 05:50] LABS: Anion Gap 13 mmol/L (10-20); BUN (Urea Nitrogen) 18 mg/dL (9.8-20.1); Calc. Creatinine Clearance 49 mL/min (70-130); Calcium 9.1 mg/dL (7.8-10.44); Carbon Dioxide 26 mmol/L (23-31); Chloride 105 mmol/L (98-107); Estimated GFR-MDRD 60; Glucose 113 mg/dL (83-110); Magnesium 1.2 mg/dL (1.6-2.6); Potassium 3.6 mmol/L (3.5-5.1); Sodium 140 mmol/L (136-145)
[2020-02-25] MEDS: Ferrous Sulfate 325 MG TAB PO SCH ×2 (08:28→17:13)
[2020-02-25] MEDS: Heparin 5,000 UNITS/ML VIAL SC SCH ×2 (08:28→21:25)
[2020-02-25] MEDS: Gabapentin 300 MG CAP PO SCH ×3 (08:29→21:24)
[2020-02-25] MEDS: Ascorbic Acid 500 mg Chewable Tablet PO SCH (08:29)
[2020-02-25] MEDS: ALPRAZolam 0.25 MG TAB PO PRN ×2 (08:30→21:35)
[2020-02-25] MEDS: Acetaminophen 500 MG TAB PO PRN (11:28)
[2020-02-25] MEDS: Polyethylene Glycol 3350 17 GM Packet PO PRN (11:28)
[2020-02-25] MEDS: Senokot S 8.6-50 MG TAB PO PRN (11:28)
[2020-02-25] MEDS: HumaLOG 300 UNITS/3 ML VIAL SC PRN ×2 (11:29→17:14)
[2020-02-25 13:15] LABS: IgA - Total IgA (Sendout) 250 mg/dL (64-422); Immunoglobulin - G (Sendout) 835 mg/dL (586-1602); Immunoglobulin - M (Sendout) 271 mg/dL (26-217)
[2020-02-25] MEDS: Cefepime 1 GM in Sodium Chloride 0.9% 100 ML IVPB SCH (13:50)
--- NOTE | 2020-02-25 13:55 | PDOC.HOSPP ---
- Subjective Encounter Date: 02/25/20 Encounter Time: 12:00 Subjective: mild pain in her stump no sob or fever is tolerating oral diet c/o tremors in her hands, just had breathing treatment - Objective Vital Signs & Weight: Vital Signs (12 hours) Temp Pulse Resp BP Pulse Ox 02/25/20 11:40 98.3 F 116 H 18 145/73 H 97 02/25/20 08:00 100 02/25/20 07:59 98.4 F 86 16 145/76 H 100 02/25/20 07:54 94 18 98 02/25/20 04:01 97.8 F 91 16 130/76 98 Weight Admit Weight 145 lb Weight 133 lb 3.2 oz Most Recent Monitor Data Heart Rate from ECG 102 NIBP 103/50 NIBP BP-Mean 67 Respiration from ECG 14 SpO2 96 I&O: 02/24/20 02/25/20 02/26/20 06:59 06:59 06:59 Intake Total 1940 2360 Output Total 100 825 Balance 1840 1535 Result Diagrams: 02/25/20 04:49 02/25/20 04:49 Additional Labs: Accuchecks 02/25/20 02/25/20 02/24/20 11:01 05:41 21:21 POC Glucose 205 H 108 H 182 H 02/24/20 16:36 POC Glucose 133 H Hospitalist ROS - Medication Medications: Active Medications Generic Name Dose Route Start Last Admin Trade Name Freq PRN Reason Stop Dose Admin Acetaminophen 1,000 mg 02/19/20 20:46 02/25/20 11:28 Acetaminophen 500 Mg Tab PO 1,000 mg Q6H PRN Administration Mild-Moderate Pain (1-5) Acetaminophen 650 mg 02/21/20 17:44 02/21/20 18:16 Acetaminophen 650 Mg Suppository PA 650 mg Q4H PRN Administration Headache/Fever or Pain Acetaminophen/Codeine Phosphate 1 tab 02/19/20 20:39 02/23/20 19:05 Acetaminophen/Codeine 30-300mg Tablet PO 1 tab Q4H PRN Administration Moderate Pain (4-6) Albuterol/Ipratropium 3 ml 02/23/20 15:00 02/25/20 13:39 Ipratropium/Albuterol Sulfate 3 Ml Neb NEB Not Given QID-RT LOUISE Alprazolam 0.25 mg 02/19/20 20:46 02/25/20 08:30 Alprazolam 0.25 Mg Tab PO 0.25 mg TID PRN Administration Anxiety Ascorbic Acid 500 mg 02/20/20 09:00 02/25/20 08:29 Ascorbic Acid 500 Mg Chewable Tablet PO 500 mg DAILY LOUISE Administration Citalopram Hydrobromide 20 mg 02/19/20 21:00 02/24/20 20:19 Citalopram 20 Mg Tab PO 20 mg HS LOUISE Administration Cyclobenzaprine HCl 5 mg 02/19/20 20:46 02/24/20 10:01 Cyclobenzaprine 10 Mg Tab PO 5 mg TIDPRN PRN Administration Muscle Spasm Fentanyl 50 mcg 02/19/20 20:39 02/24/20 14:32 Fentanyl 100 Mcg/2 Ml Vial SLOW IVP 50 mcg Q30M PRN Administration Severe breakthrough pain Ferrous Sulfate 325 mg 02/20/20 08:00 02/25/20 08:28 Ferrous Sulfate 325 Mg Tab PO 325 mg BID-WM LOUISE Administration Gabapentin 300 mg 02/23/20 21:00 02/25/20 08:29 Gabapentin 300 Mg Cap PO 300 mg TID LOUISE Administration Heparin Sodium (Porcine) 5,000 units 02/20/20 09:00 02/25/20 08:28 Heparin 5,000 Units/Ml Vial SC 5,000 units BID [facility] Administration Lactated Ringer's 1,000 mls @ 60 mls/hr 02/21/20 18:30 02/25/20 05:16 Lactated Ringer's IV Not Given .[id number] [facility] Insulin Human Lispro 0 units 02/20/20 03:19 02/25/20 11:29 Humalog 300 Units/3 Ml Vial SC 3 unit .MILD SLIDING SCALE PRN Administration Mild Correctional Scale Levothyroxine Sodium 75 mcg 02/20/20 06:00 02/25/20 05:10 Levothyroxine Sodium 75 Mcg Tab PO 75 mcg 0600 [facility] Administration Pantoprazole Sodium 20 mg 02/20/20 09:00 02/25/20 08:29 Pantoprazole 40 Mg Tab PO 20 mg DAILY LOUISE Administration Polyethylene Glycol 17 gm 02/19/20 20:46 02/25/20 11:28 Polyethylene Glycol 3350 17 Gm Packet PO 17 gm DAILY PRN Administration Constipation Senna/Docusate Sodium 2 tab 02/19/20 20:46 02/25/20 11:28 Senokot S 8.6-50 Mg Tab PO 2 tab BID PRN Administration Constipation Simvastatin 10 mg 02/19/20 21:00 02/24/20 20:19 Simvastatin 5 Mg Tab PO 10 mg HS LOUISE Administration - Exam General Appearance: awake alert Eye: PERRL, anicteric sclera ENT: no oropharyngeal lesions, moist mucosa Neck: supple, no JVD Heart: RRR, no murmur Respiratory: no wheezes, no rales Gastrointestinal: soft, non-tender, non-distended, normal bowel sounds Extremities: no edema Extremities - other findings: left aka stump in dressing Neurological: cranial nerve grossly intact, no focal deficits Psychiatric: normal affect, A&O x 3 Hosp A/P (1) Fracture of proximal end of left tibia with delayed healing Code(s): S82.102G - UNSP FX UPPER END OF L TIBIA, SUBS FOR CLOS FX W DELAY HEAL Status: Chronic Qualifiers: Fracture type: closed (2) JONATHAN (acute kidney injury) Code(s): N17.9 - ACUTE KIDNEY FAILURE, UNSPECIFIED Status: Resolved (3) Chronic anemia Code(s): D64.9 - ANEMIA, UNSPECIFIED Status: Chronic (4) DM2 (diabetes mellitus, type 2) Status: Chronic Qualifiers: 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: without skilled nursing use (5) HLD (hyperlipidemia) Code(s): E78.5 - HYPERLIPIDEMIA, UNSPECIFIED Status: Chronic Qualifiers: Hyperlipidemia type: unspecified Qualified Code(s): E78.5 - Hyperlipidemia, unspecified (6) HTN (hypertension) Code(s): I10 - ESSENTIAL (PRIMARY) HYPERTENSION Status: Chronic Qualifiers: Hypertension type: essential hypertension Qualified Code(s): I10 - Essential (primary) hypertension (7) Hypothyroidism Code(s): E03.9 - HYPOTHYROIDISM, UNSPECIFIED Status: Chronic Qualifiers: Hypothyroidism type: unspecified Qualified Code(s): E03.9 - Hypothyroidism, unspecified (8) Anxiety Code(s): F41.9 - ANXIETY DISORDER, UNSPECIFIED Status: Chronic (9) GERD (gastroesophageal reflux disease) Code(s): K21.9 - GASTRO-ESOPHAGEAL REFLUX DISEASE WITHOUT ESOPHAGITIS Status: Chronic Qualifiers: Esophagitis presence: esophagitis presence not specified Qualified Code(s): K21.9 - Gastro-esophageal reflux disease without esophagitis (10) Major depression Code(s): F32.9 - MAJOR DEPRESSIVE DISORDER, SINGLE EPISODE, UNSPECIFIED Status: Chronic Qualifiers: Major depression recurrence: unspecified whether recurrent Active/Remission status: in full remission Qualified Code(s): F32.5 - Major depressive disorder, single episode, in full remission (11) Osteoporosis Code(s): M81.0 - AGE-RELATED OSTEOPOROSIS W/O CURRENT PATHOLOGICAL FRACTURE Status: Chronic Qualifiers: Osteoporosis type: unspecified (12) Rheumatoid arthritis Code(s): M06.9 - RHEUMATOID ARTHRITIS, UNSPECIFIED Status: Chronic Qualifiers: Rheumatoid arthritis location: unspecified site (13) s/p left aka Status: Acute - Plan s/p left aka doing well. hemostable, blood cs are -ve, dc antibiotics has severe valgus deformity of left knee with prox tibial fracture and dislocation. continue synthroid, zocor, celexa, neurontin, protonix and iron prior echo showed normal ef with no significant valvular issues (mild ) has long standing h/o RA and osteoporosis encourage po intake renal function almost baseline dc plan to rehab, PT to mobilize for transfers
[2020-02-25 14:43] LABS: Vancomycin, Trough 21.2 ug/mL
[2020-02-25] MEDS ORDERED: Clopidogrel Bisulfate 75 MG TAB ONE (19:09)
[2020-02-25] MEDS: Citalopram 20 MG TAB PO SCH (21:24)
[2020-02-25] MEDS: Simvastatin 5 MG TAB PO SCH (21:24)
[2020-02-26] MEDS: Levothyroxine Sodium 75 MCG TAB PO SCH (05:24)
[2020-02-26 05:47] LABS: #Basophils 0.1 thou/uL (0.0-0.2); #Eosinphils 0.6 thou/uL (0.0-0.7); #Lymphocytes 1.6 thou/uL (1.20-3.40); #Monocytes 0.9 thou/uL (0.11-0.59); #Neutrophils 5.3 thou/uL (1.40-6.50); %Basophils 0.7 % (0.0-1.0); %Eosinophils 6.8 % (0.0-10.0); %Lymphocytes 18.8 % (21.0-51.0); %Monocytes 10.8 % (0.0-10.0); %Neutrophils 62.9 % (42.0-75.0); Hemoglobin 9.9 g/dL (12.0-16.0); Mean Corpuscular HGB CONC 34.1 g/dL (32.0-36.0); Mean Corpuscular Hemoglobin 30.7 pg (27.0-31.0); Mean Corpuscular Volume 89.9 fL (78.0-98.0); Mean Platelet Volume 8.3 fL (7.4-10.4); Platelet Count 196 thou/uL (130-400); RBC Distribution Width 16.3 % (11.5-14.5); Red Blood Cell (RBC) Count 3.21 mill/uL (4.20-5.40); White Blood Cell (WBC) Count 8.5 thou/uL (4.8-10.8)
[2020-02-26 06:15] LABS: Anion Gap 13 mmol/L (10-20); BUN (Urea Nitrogen) 14 mg/dL (9.8-20.1); Calc. Creatinine Clearance 53 mL/min (70-130); Carbon Dioxide 27 mmol/L (23-31); Chloride 104 mmol/L (98-107); Estimated GFR-MDRD 66; Glucose 118 mg/dL (83-110); Potassium 3.9 mmol/L (3.5-5.1); Sodium 140 mmol/L (136-145)
[2020-02-26] MEDS: Senokot S 8.6-50 MG TAB PO PRN (08:47)
[2020-02-26] MEDS: Polyethylene Glycol 3350 17 GM Packet PO PRN (08:47)
[2020-02-26] MEDS: Acetaminophen 500 MG TAB PO PRN (08:48)
[2020-02-26] MEDS: Heparin 5,000 UNITS/ML VIAL SC SCH ×2 (08:50→21:30)
[2020-02-26] MEDS: Ascorbic Acid 500 mg Chewable Tablet PO SCH (08:50)
[2020-02-26] MEDS: Ferrous Sulfate 325 MG TAB PO SCH ×2 (08:50→18:30)
[2020-02-26] MEDS: Gabapentin 300 MG CAP PO SCH ×3 (09:10→21:30)
--- NOTE | 2020-02-26 12:57 | PDOC.HOSPP ---
- Subjective Encounter Date: 02/26/20 Encounter Time: 09:20 Subjective: took xanax last night for anxiety, a bit groggy this am, if fully oriented says she slept very well last night has some pain at her aka site - Objective Vital Signs & Weight: Vital Signs (12 hours) Temp Pulse Resp BP Pulse Ox 02/26/20 12:08 98.5 F 98 18 111/66 94 L 02/26/20 10:44 104 H 18 92 L 02/26/20 07:39 98.6 F 97 16 129/69 93 L 02/26/20 03:31 97.1 F L 99 14 132/76 93 L Weight Admit Weight 145 lb Weight 133 lb 3.2 oz Most Recent Monitor Data Heart Rate from ECG 102 NIBP 103/50 NIBP BP-Mean 67 Respiration from ECG 14 SpO2 96 I&O: 02/25/20 02/26/20 02/27/20 06:59 06:59 06:59 Intake Total 2360 2160 Output Total 825 1600 Balance 1535 560 Result Diagrams: 02/26/20 04:57 02/26/20 04:57 Additional Labs: Accuchecks 02/26/20 02/26/20 02/25/20 11:30 05:45 20:47 POC Glucose 142 H 115 H 169 H 02/25/20 16:10 POC Glucose 185 H Hospitalist ROS - Medication Medications: Active Medications Generic Name Dose Route Start Last Admin Trade Name Freq PRN Reason Stop Dose Admin Acetaminophen 1,000 mg 02/19/20 20:46 02/26/20 08:48 Acetaminophen 500 Mg Tab PO 1,000 mg Q6H PRN Administration Mild-Moderate Pain (1-5) Acetaminophen 650 mg 02/21/20 17:44 02/21/20 18:16 Acetaminophen 650 Mg Suppository MD 650 mg Q4H PRN Administration Headache/Fever or Pain Acetaminophen/Codeine Phosphate 1 tab 02/19/20 20:39 02/23/20 19:05 Acetaminophen/Codeine 30-300mg Tablet PO 1 tab Q4H PRN Administration Moderate Pain (4-6) Albuterol/Ipratropium 3 ml 02/23/20 15:00 02/26/20 10:44 Ipratropium/Albuterol Sulfate 3 Ml Neb NEB 3 ml QID-RT LOUISE Administration Alprazolam 0.25 mg 02/19/20 20:46 02/25/20 21:35 Alprazolam 0.25 Mg Tab PO 0.25 mg TID PRN Administration Anxiety Ascorbic Acid 500 mg 02/20/20 09:00 02/26/20 08:50 Ascorbic Acid 500 Mg Chewable Tablet PO 500 mg DAILY LOUISE Administration Citalopram Hydrobromide 20 mg 02/19/20 21:00 02/25/20 21:24 Citalopram 20 Mg Tab PO 20 mg HS LOUISE Administration Cyclobenzaprine HCl 5 mg 02/19/20 20:46 02/24/20 10:01 Cyclobenzaprine 10 Mg Tab PO 5 mg TIDPRN PRN Administration Muscle Spasm Fentanyl 50 mcg 02/19/20 20:39 02/24/20 14:32 Fentanyl 100 Mcg/2 Ml Vial SLOW IVP 50 mcg Q30M PRN Administration Severe breakthrough pain Ferrous Sulfate 325 mg 02/20/20 08:00 02/26/20 08:50 Ferrous Sulfate 325 Mg Tab PO 325 mg BID-WM LOUISE Administration Gabapentin 300 mg 02/23/20 21:00 02/25/20 21:24 Gabapentin 300 Mg Cap PO 300 mg TID LOUISE Administration Heparin Sodium (Porcine) 5,000 units 02/20/20 09:00 02/26/20 08:50 Heparin 5,000 Units/Ml Vial SC 5,000 units BID LOUISE Administration Lactated Ringer's 1,000 mls @ 60 mls/hr 02/21/20 18:30 02/25/20 13:48 Lactated Ringer's IV 1,000 mls .[id number] LOUISE Administration Insulin Human Lispro 0 units 02/20/20 03:19 02/25/20 17:14 Humalog 300 Units/3 Ml Vial SC 2 unit .MILD SLIDING SCALE PRN Administration Mild Correctional Scale Levothyroxine Sodium 75 mcg 02/20/20 06:00 02/26/20 05:24 Levothyroxine Sodium 75 Mcg Tab PO 75 mcg 0600 LOUISE Administration Pantoprazole Sodium 20 mg 02/20/20 09:00 02/26/20 08:48 Pantoprazole 40 Mg Tab PO 20 mg DAILY LOUSIE Administration Polyethylene Glycol 17 gm 02/19/20 20:46 02/26/20 08:47 Polyethylene Glycol 3350 17 Gm Packet PO 17 gm DAILY PRN Administration Constipation Senna/Docusate Sodium 2 tab 02/19/20 20:46 02/26/20 08:47 Senokot S 8.6-50 Mg Tab PO 2 tab BID PRN Administration Constipation Simvastatin 10 mg 02/19/20 21:00 02/25/20 21:24 Simvastatin 5 Mg Tab PO 10 mg HS LOUISE Administration Tramadol HCl 100 mg 02/19/20 20:39 02/25/20 21:25 Tramadol Hcl 50 Mg Tab PO 100 mg Q6H PRN Administration Moderate Pain (4-6) - Exam Eye: PERRL, anicteric sclera ENT: no oropharyngeal lesions, moist mucosa Neck: supple, no JVD Heart: RRR, no murmur Respiratory: no wheezes, no rales Gastrointestinal: soft, non-tender, non-distended, normal bowel sounds Extremities: no edema Extremities - other findings: left aka in dressing/crepe Neurological: cranial nerve grossly intact, no focal deficits Hosp A/P (1) s/p left aka Status: Acute (2) Fracture of proximal end of left tibia with delayed healing Code(s): S82.102G - UNSP FX UPPER END OF L TIBIA, SUBS FOR CLOS FX W DELAY HEAL Status: Chronic Qualifiers: Fracture type: closed (3) JONATHAN (acute kidney injury) Code(s): N17.9 - ACUTE KIDNEY FAILURE, UNSPECIFIED Status: Resolved (4) Chronic anemia Code(s): D64.9 - ANEMIA, UNSPECIFIED Status: Chronic (5) DM2 (diabetes mellitus, type 2) Status: Chronic Qualifiers: Diabetes mellitus retirement insulin use: without retirement use (6) HLD (hyperlipidemia) Code(s): E78.5 - HYPERLIPIDEMIA, UNSPECIFIED Status: Chronic Qualifiers: Hyperlipidemia type: unspecified Qualified Code(s): E78.5 - Hyperlipidemia, unspecified (7) HTN (hypertension) Code(s): I10 - ESSENTIAL (PRIMARY) HYPERTENSION Status: Chronic Qualifiers: Hypertension type: essential hypertension Qualified Code(s): I10 - Essential (primary) hypertension (8) Hypothyroidism Code(s): E03.9 - HYPOTHYROIDISM, UNSPECIFIED Status: Chronic Qualifiers: Hypothyroidism type: unspecified Qualified Code(s): E03.9 - Hypothyroidism, unspecified (9) Anxiety Code(s): F41.9 - ANXIETY DISORDER, UNSPECIFIED Status: Chronic (10) GERD (gastroesophageal reflux disease) Code(s): K21.9 - GASTRO-ESOPHAGEAL REFLUX DISEASE WITHOUT ESOPHAGITIS Status: Chronic Qualifiers: Esophagitis presence: esophagitis presence not specified Qualified Code(s): K21.9 - Gastro-esophageal reflux disease without esophagitis (11) Major depression Code(s): F32.9 - MAJOR DEPRESSIVE DISORDER, SINGLE EPISODE, UNSPECIFIED Status: Chronic Qualifiers: Major depression recurrence: unspecified whether recurrent Active/Remission status: in full remission Qualified Code(s): F32.5 - Major depressive disorder, single episode, in full remission (12) Osteoporosis Code(s): M81.0 - AGE-RELATED OSTEOPOROSIS W/O CURRENT PATHOLOGICAL FRACTURE Status: Chronic Qualifiers: Osteoporosis type: unspecified (13) Rheumatoid arthritis Code(s): M06.9 - RHEUMATOID ARTHRITIS, UNSPECIFIED Status: Chronic Qualifiers: Rheumatoid arthritis location: unspecified site - Plan avoid narcotics and sleep aids including xanax (unless its for extreme anxiety) s/p left aka doing well. hemostable, blood cs are -ve had severe valgus deformity of left knee with prox tibial fracture and dislocation. continue synthroid, zocor, celexa, neurontin, protonix and iron prior echo showed normal ef with no significant valvular issues (mild ) has long standing h/o RA and osteoporosis encourage po intake renal function almost baseline dc plan to rehab/swing bed, PT to mobilize for transfers awaiting placement and mobilization
[2020-02-26] MEDS: Simvastatin 5 MG TAB PO SCH (21:30)
[2020-02-26] MEDS: Citalopram 20 MG TAB PO SCH (21:30)
[2020-02-26] MEDS: Lactated Ringer's 1,000 ML IV SCH (21:40)
[2020-02-27] MEDS: Levothyroxine Sodium 75 MCG TAB PO SCH (05:07)
[2020-02-27] MEDS ORDERED: traMADol HCl 50 MG TAB PO PRN ×2 (07:13)
[2020-02-27] MEDS: Gabapentin 300 MG CAP PO SCH ×3 (09:28→22:04)
[2020-02-27] MEDS: Ascorbic Acid 500 mg Chewable Tablet PO SCH (09:28)
[2020-02-27] MEDS: Ferrous Sulfate 325 MG TAB PO SCH ×2 (09:28→17:21)
[2020-02-27] MEDS: Heparin 5,000 UNITS/ML VIAL SC SCH ×2 (09:31→22:10)
[2020-02-27] MEDS: Lactated Ringer's 1,000 ML IV SCH (09:50)
--- NOTE | 2020-02-27 12:47 | PDOC.HOSPP ---
- Subjective Encounter Date: 02/27/20 Encounter Time: 11:30 Subjective: no pain, feels better no sob, is eating better will be working with PT today - Objective Vital Signs & Weight: Vital Signs (12 hours) Temp Pulse Resp BP Pulse Ox 02/27/20 11:29 99.5 F 108 H 20 131/77 95 02/27/20 10:19 91 18 91 L 02/27/20 07:53 99.6 F 103 H 18 147/79 H 90 L 02/27/20 06:57 98 18 90 L 02/27/20 03:15 98.4 F 97 14 154/87 H 98 Weight Admit Weight 145 lb Weight 133 lb 3.2 oz Most Recent Monitor Data Heart Rate from ECG 102 NIBP 103/50 NIBP BP-Mean 67 Respiration from ECG 14 SpO2 96 I&O: 02/26/20 02/27/20 02/28/20 06:59 06:59 06:59 Intake Total 2160 1680 Output Total 1600 700 Balance 560 980 Result Diagrams: 02/26/20 04:57 02/26/20 04:57 Additional Labs: Accuchecks 02/27/20 02/27/20 02/26/20 11:33 05:50 20:59 POC Glucose 160 H 109 H 102 H 02/26/20 16:05 POC Glucose 118 H Hospitalist ROS - Medication Medications: Active Medications Generic Name Dose Route Start Last Admin Trade Name Freq PRN Reason Stop Dose Admin Acetaminophen 1,000 mg 02/19/20 20:46 02/26/20 08:48 Acetaminophen 500 Mg Tab PO 1,000 mg Q6H PRN Administration Mild-Moderate Pain (1-5) Acetaminophen 650 mg 02/21/20 17:44 02/21/20 18:16 Acetaminophen 650 Mg Suppository AK 650 mg Q4H PRN Administration Headache/Fever/Mild-Mod Pain Albuterol/Ipratropium 3 ml 02/23/20 15:00 02/27/20 10:19 Ipratropium/Albuterol Sulfate 3 Ml Neb NEB 3 ml QID-RT LOUIES Administration Alprazolam 0.25 mg 02/19/20 20:46 02/25/20 21:35 Alprazolam 0.25 Mg Tab PO 0.25 mg TID PRN Administration Anxiety Ascorbic Acid 500 mg 02/20/20 09:00 02/27/20 09:28 Ascorbic Acid 500 Mg Chewable Tablet PO 500 mg DAILY LOUISE Administration Citalopram Hydrobromide 20 mg 02/19/20 21:00 02/26/20 21:30 Citalopram 20 Mg Tab PO 20 mg HS LOUISE Administration Ferrous Sulfate 325 mg 02/20/20 08:00 02/27/20 09:28 Ferrous Sulfate 325 Mg Tab PO 325 mg BID-WM LOUISE Administration Gabapentin 300 mg 02/23/20 21:00 02/27/20 09:28 Gabapentin 300 Mg Cap PO 300 mg TID LOUISE Administration Heparin Sodium (Porcine) 5,000 units 02/20/20 09:00 02/27/20 09:31 Heparin 5,000 Units/Ml Vial SC 5,000 units BID LOUISE Administration Insulin Human Lispro 0 units 02/20/20 03:19 02/25/20 17:14 Humalog 300 Units/3 Ml Vial SC 2 unit .MILD SLIDING SCALE PRN Administration Mild Correctional Scale Levothyroxine Sodium 75 mcg 02/20/20 06:00 02/27/20 05:07 Levothyroxine Sodium 75 Mcg Tab PO 75 mcg 0600 LOUISE Administration Pantoprazole Sodium 20 mg 02/20/20 09:00 02/27/20 09:27 Pantoprazole 40 Mg Tab PO 20 mg DAILY LOUISE Administration Polyethylene Glycol 17 gm 02/19/20 20:46 02/26/20 08:47 Polyethylene Glycol 3350 17 Gm Packet PO 17 gm DAILY PRN Administration Constipation Senna/Docusate Sodium 2 tab 02/19/20 20:46 02/26/20 08:47 Senokot S 8.6-50 Mg Tab PO 2 tab BID PRN Administration Constipation Simvastatin 10 mg 02/19/20 21:00 02/26/20 21:30 Simvastatin 5 Mg Tab PO 10 mg HS LOUISE Administration - Exam General Appearance: awake alert Eye: PERRL, anicteric sclera ENT: no oropharyngeal lesions, moist mucosa Neck: supple, no JVD Heart: RRR, no gallops Respiratory: no wheezes, no rales Gastrointestinal: soft, non-tender, non-distended, normal bowel sounds Extremities: no cyanosis, no edema Extremities - other findings: left aka Neurological: cranial nerve grossly intact, no focal deficits Psychiatric: A&O x 3 Hosp A/P (1) s/p left aka Status: Acute (2) Fracture of proximal end of left tibia with delayed healing Code(s): S82.102G - UNSP FX UPPER END OF L TIBIA, SUBS FOR CLOS FX W DELAY HEAL Status: Chronic Qualifiers: Fracture type: closed (3) JONATHAN (acute kidney injury) Code(s): N17.9 - ACUTE KIDNEY FAILURE, UNSPECIFIED Status: Resolved (4) Chronic anemia Code(s): D64.9 - ANEMIA, UNSPECIFIED Status: Chronic (5) DM2 (diabetes mellitus, type 2) Status: Chronic Qualifiers: Diabetes mellitus group home insulin use: without group home use (6) HLD (hyperlipidemia) Code(s): E78.5 - HYPERLIPIDEMIA, UNSPECIFIED Status: Chronic Qualifiers: Hyperlipidemia type: unspecified Qualified Code(s): E78.5 - Hyperlipidemia, unspecified (7) HTN (hypertension) Code(s): I10 - ESSENTIAL (PRIMARY) HYPERTENSION Status: Chronic Qualifiers: Hypertension type: essential hypertension Qualified Code(s): I10 - Essential (primary) hypertension (8) Hypothyroidism Code(s): E03.9 - HYPOTHYROIDISM, UNSPECIFIED Status: Chronic Qualifiers: Hypothyroidism type: unspecified Qualified Code(s): E03.9 - Hypothyroidism, unspecified (9) Anxiety Code(s): F41.9 - ANXIETY DISORDER, UNSPECIFIED Status: Chronic (10) GERD (gastroesophageal reflux disease) Code(s): K21.9 - GASTRO-ESOPHAGEAL REFLUX DISEASE WITHOUT ESOPHAGITIS Status: Chronic Qualifiers: Esophagitis presence: esophagitis presence not specified Qualified Code(s): K21.9 - Gastro-esophageal reflux disease without esophagitis (11) Major depression Code(s): F32.9 - MAJOR DEPRESSIVE DISORDER, SINGLE EPISODE, UNSPECIFIED Status: Chronic Qualifiers: Major depression recurrence: unspecified whether recurrent Active/Remission status: in full remission Qualified Code(s): F32.5 - Major depressive disorder, single episode, in full remission (12) Osteoporosis Code(s): M81.0 - AGE-RELATED OSTEOPOROSIS W/O CURRENT PATHOLOGICAL FRACTURE Status: Chronic Qualifiers: Osteoporosis type: unspecified (13) Rheumatoid arthritis Code(s): M06.9 - RHEUMATOID ARTHRITIS, UNSPECIFIED Status: Chronic Qualifiers: Rheumatoid arthritis location: unspecified site - Plan avoid narcotics and sleep aids including xanax (unless its for extreme anxiety) s/p left aka doing well. hemostable, blood cs are -ve had severe valgus deformity of left knee with prox tibial fracture and dislocation. continue synthroid, zocor, celexa, neurontin, protonix and iron prior echo showed normal ef with no significant valvular issues (mild ) has long standing h/o RA and osteoporosis encourage po intake renal function almost baseline dc plan to rehab/swing bed, PT to mobilize for transfers awaiting placement and mobilization, may dc anytime
[2020-02-27] MEDS: HumaLOG 300 UNITS/3 ML VIAL SC PRN ×2 (14:11→22:10)
[2020-02-27] MEDS: Acetaminophen 650 MG Suppository PR PRN (17:18)
[2020-02-27 17:42] LABS: #Eosinphils 0.4 thou/uL (0.0-0.7); #Lymphocytes 1.5 thou/uL (1.20-3.40); #Monocytes 0.9 thou/uL (0.11-0.59); #Neutrophils 7.1 thou/uL (1.40-6.50); %Basophils 0.3 % (0.0-1.0); %Lymphocytes 15.2 % (21.0-51.0); %Monocytes 8.9 % (0.0-10.0); %Neutrophils 71.6 % (42.0-75.0); Hemoglobin 9.9 g/dL (12.0-16.0); Mean Corpuscular HGB CONC 33.4 g/dL (32.0-36.0); Mean Corpuscular Hemoglobin 30.7 pg (27.0-31.0); Mean Corpuscular Volume 91.6 fL (78.0-98.0); Mean Platelet Volume 7.2 fL (7.4-10.4); Platelet Count 201 thou/uL (130-400); RBC Distribution Width 15.6 % (11.5-14.5); Red Blood Cell (RBC) Count 3.23 mill/uL (4.20-5.40); White Blood Cell (WBC) Count 9.9 thou/uL (4.8-10.8)
--- NOTE | 2020-02-27 17:47 | RAD ---
Portable frontal chest radiograph: 02/27/2020 COMPARISON: 03/23/2020 HISTORY: Fever, pneumonia FINDINGS: There is prominent new interstitial opacity throughout both lungs with a perihilar/bibasila r predominance. Worsening bibasilar airspace disease noted, left greater than right. No pneumothorax. Shallow inspiration and body habitus limits detailed assessment of the lung bases. IMPRESSION: Extensive new interstitial and alveolar opacity in the perihilar regions and both lung ba ses. Findings may be on the basis of multifocal infectious pneumonitis, aspiration, and/or pulmonary edema. Covid pneumonia is a possibility in the proper clinical setting.
[2020-02-27 18:06] LABS: Anion Gap 11 mmol/L (10-20); BUN (Urea Nitrogen) 14 mg/dL (9.8-20.1); Calc. Creatinine Clearance 55 mL/min (70-130); Calcium 9.2 mg/dL (7.8-10.44); Carbon Dioxide 31 mmol/L (23-31); Chloride 102 mmol/L (98-107); Estimated GFR-MDRD 69; Glucose 101 mg/dL (83-110); Potassium 3.5 mmol/L (3.5-5.1); Sodium 140 mmol/L (136-145)
--- NOTE | 2020-02-27 18:44 | ULT ---
RIGHT LOWER EXTREMITY VENOUS DOPPLER ULTRASOUND: 02/27/20 COMPARISON: None. HISTORY: Edema, swelling, fever, assess for DVT. TECHNIQUE: Multiplanar hu scale sonographic imaging of the venous structures of the right lower extremity obta ined with color flow and spectral analysis. FINDINGS: Right common femoral vein, greater saphenous vein, profunda femoral vein, femoral vein, popliteal vei n, and posterior tibial vein are patent. Normal blood flow, augmentation and compression. No evidence for DVT of the right lower extremity. IMPRESSION: No evidence for right lower extremity DVT. POS: ZBIGNIEW
[2020-02-27] MEDS ORDERED: Fleet Enema 133 ML BOT PR SCH (18:45)
[2020-02-27] MEDS ORDERED: Furosemide 40 MG/4 ML VIAL SLOW IVP SCH (19:15)
[2020-02-27] MEDS: Simvastatin 5 MG TAB PO SCH (22:04)
[2020-02-27] MEDS: Citalopram 20 MG TAB PO SCH (22:04)
[2020-02-27] MEDS: Senokot S 8.6-50 MG TAB PO SCH (22:04)
[2020-02-27] MEDS: methylPREDNISolone Sod Succ 40 MG VIAL IVP SCH (22:05)
[2020-02-27] MEDS: Cefepime 1 GM in Sodium Chloride 0.9% 100 ML IVPB SCH (22:17)
[2020-02-27] MEDS: Vancomycin 1 GM in Premix Bag 1 BAG IVPB SCH (22:36)
[2020-02-28] MEDS: methylPREDNISolone Sod Succ 40 MG VIAL IVP SCH ×3 (05:23→21:45)
[2020-02-28] MEDS: Levothyroxine Sodium 75 MCG TAB PO SCH (05:24)
[2020-02-28] MEDS: Furosemide 40 MG/4 ML VIAL SLOW IVP SCH ×2 (05:24→14:17)
[2020-02-28] MEDS: HumaLOG 300 UNITS/3 ML VIAL SC PRN ×4 (05:28→21:44)
[2020-02-28] MEDS: Senokot S 8.6-50 MG TAB PO SCH ×2 (08:37→21:31)
[2020-02-28] MEDS: Ascorbic Acid 500 mg Chewable Tablet PO SCH (08:38)
[2020-02-28] MEDS: Acetaminophen 500 MG TAB PO PRN (08:38)
[2020-02-28] MEDS: Gabapentin 300 MG CAP PO SCH ×3 (08:40→21:31)
[2020-02-28] MEDS: Ferrous Sulfate 325 MG TAB PO SCH ×2 (08:40→16:34)
[2020-02-28] MEDS: Bisacodyl 10 MG SUPP PR SCH (08:41)
[2020-02-28] MEDS: Polyethylene Glycol 3350 17 GM Packet PO SCH (08:41)
[2020-02-28] MEDS: Heparin 5,000 UNITS/ML VIAL SC SCH ×2 (08:43→21:32)
[2020-02-28] MEDS: Cefepime 1 GM in Sodium Chloride 0.9% 100 ML IVPB SCH ×2 (13:02→16:27)
[2020-02-28] MEDS ORDERED: Insulin Glargine 20 UNITS in Pre-Filled Syringe SC SCH (13:45)
--- NOTE | 2020-02-28 13:53 | PDOC.HOSPP ---
- Subjective Encounter Date: 02/28/20 Encounter Time: 11:00 Subjective: awake, oriented well, responds very well, breathing comfortably now ate her breakfast - Objective Vital Signs & Weight: Vital Signs (12 hours) Temp Pulse Resp BP Pulse Ox 02/28/20 11:10 98.3 F 117 H 18 108/62 95 02/28/20 10:26 64 18 96 02/28/20 07:57 98.4 F 79 18 112/68 97 02/28/20 07:40 58 L 18 96 02/28/20 03:40 98.2 F 61 18 123/71 97 Weight Admit Weight 145 lb Weight 133 lb 3.2 oz Most Recent Monitor Data Heart Rate from ECG 102 NIBP 103/50 NIBP BP-Mean 67 Respiration from ECG 14 SpO2 96 I&O: 02/27/20 02/28/20 02/29/20 06:59 06:59 06:59 Intake Total 1680 1040 Output Total 700 3000 Balance 980 -1960 Result Diagrams: 02/27/20 17:34 02/27/20 17:34 Additional Labs: Accuchecks 02/28/20 02/27/20 02/27/20 05:13 20:15 16:32 POC Glucose 285 H 201 H 102 H Hospitalist ROS - Medication Medications: Active Medications Generic Name Dose Route Start Last Admin Trade Name Freq PRN Reason Stop Dose Admin Acetaminophen 1,000 mg 02/19/20 20:46 02/28/20 08:38 Acetaminophen 500 Mg Tab PO 1,000 mg Q6H PRN Administration Mild-Moderate Pain (1-5) Acetaminophen 650 mg 02/21/20 17:44 02/27/20 17:18 Acetaminophen 650 Mg Suppository [place] 650 mg Q4H PRN Administration Headache/Fever/Mild-Mod Pain Albuterol/Ipratropium 3 ml 02/23/20 15:00 02/28/20 10:26 Ipratropium/Albuterol Sulfate 3 Ml Neb NEB 3 ml QID-RT LOUISE Administration Ascorbic Acid 500 mg 02/20/20 09:00 02/28/20 08:38 Ascorbic Acid 500 Mg Chewable Tablet PO 500 mg DAILY LOUISE Administration Bisacodyl 10 mg 02/28/20 09:00 02/28/20 08:41 Bisacodyl 10 Mg Supp WI 10 mg DAILY LOUISE Administration Citalopram Hydrobromide 20 mg 10/28/20 21:00 02/27/20 22:04 Citalopram 20 Mg Tab PO 20 mg HS LOUISE Administration Ferrous Sulfate 325 mg 02/20/20 08:00 02/28/20 08:40 Ferrous Sulfate 325 Mg Tab PO 325 mg BID-WM LOUISE Administration Furosemide 40 mg 02/28/20 06:00 02/28/20 05:24 Furosemide 40 Mg/4 Ml Vial SLOW IVP 02/29/20 06:01 40 mg 0600,1400 LOUISE Administration Gabapentin 300 mg 02/23/20 21:00 02/28/20 08:40 Gabapentin 300 Mg Cap PO 300 mg TID LOUISE Administration Heparin Sodium (Porcine) 5,000 units 02/20/20 09:00 02/28/20 08:43 Heparin 5,000 Units/Ml Vial SC 5,000 units BID LOUISE Administration Vancomycin HCl 1 gm/ Device 200 mls @ 200 mls/hr 02/27/20 22:00 02/27/20 22:36 IVPB 200 mls 2200 LOUISE Administration Cefepime HCl 1 gm/ Sodium 100 mls @ 200 mls/hr 02/28/20 12:00 02/28/20 13:02 Chloride IVPB 100 mls 1200,2359 LOUISE Administration Insulin Human Lispro 0 units 02/20/20 03:19 02/28/20 13:21 Humalog 300 Units/3 Ml Vial SC 6 unit .MILD SLIDING SCALE PRN Administration Mild Correctional Scale Insulin Human Lispro 0 units 02/20/20 03:19 02/27/20 22:10 Humalog 300 Units/3 Ml Vial SC 2 unit .BEDTIME SLIDING SC PRN Administration Bedtime Correctional Scale Levothyroxine Sodium 75 mcg 02/20/20 06:00 02/28/20 05:24 Levothyroxine Sodium 75 Mcg Tab PO 75 mcg 0600 LOUISE Administration Methylprednisolone Sodium Succinate 20 mg 02/27/20 22:00 02/28/20 05:23 Methylprednisolone Sod Succ 40 Mg Vial IVP 20 mg Q8HR LOUISE Administration Pantoprazole Sodium 20 mg 02/20/20 09:00 02/28/20 08:40 Pantoprazole 40 Mg Tab PO 20 mg DAILY LOUISE Administration Polyethylene Glycol 17 gm 02/28/20 09:00 02/28/20 08:41 Polyethylene Glycol 3350 17 Gm Packet PO 17 gm DAILY LOUISE Administration Senna/Docusate Sodium 2 tab 02/27/20 21:00 02/28/20 08:37 Senokot S 8.6-50 Mg Tab PO 2 tab BID LOUISE Administration Simvastatin 10 mg 02/19/20 21:00 02/27/20 22:04 Simvastatin 5 Mg Tab PO 10 mg HS LOUISE Administration - Exam General Appearance: awake alert Eye: PERRL, anicteric sclera ENT: no oropharyngeal lesions, moist mucosa Neck: supple, no JVD Heart: RRR, no murmur Respiratory: no wheezes, rales, rhonchi Gastrointestinal: soft, non-tender, non-distended, normal bowel sounds Extremities: no cyanosis, no edema Neurological: cranial nerve grossly intact, no focal deficits Psychiatric: normal affect, A&O x 3 Hosp A/P (1) s/p left aka Status: Acute (2) Fracture of proximal end of left tibia with delayed healing Code(s): S82.102G - UNSP FX UPPER END OF L TIBIA, SUBS FOR CLOS FX W DELAY HEAL Status: Chronic Qualifiers: Fracture type: closed (3) JONATHAN (acute kidney injury) Code(s): N17.9 - ACUTE KIDNEY FAILURE, UNSPECIFIED Status: Resolved (4) Chronic anemia Code(s): D64.9 - ANEMIA, UNSPECIFIED Status: Chronic (5) DM2 (diabetes mellitus, type 2) Status: Chronic Qualifiers: Diabetes mellitus [facility] insulin use: without [facility] [facility] use (6) HLD (hyperlipidemia) Code(s): E78.5 - HYPERLIPIDEMIA, UNSPECIFIED Status: Chronic Qualifiers: Hyperlipidemia type: unspecified Qualified Code(s): E78.5 - Hyperlipidemia, unspecified (7) HTN (hypertension) Code(s): I10 - ESSENTIAL (PRIMARY) HYPERTENSION Status: Chronic Qualifiers: Hypertension type: essential hypertension Qualified Code(s): I10 - Essentia l (primary) hypertension (8) Hypothyroidism Code(s): E03.9 - HYPOTHYROIDISM, UNSPECIFIED Status: Chronic Qualifiers: Hypothyroidism type: unspecified Qualified Code(s): E03.9 - Hypothyroidism, unspecified (9) Anxiety Code(s): F41.9 - ANXIETY DISORDER, UNSPECIFIED Status: Chronic (10) GERD (gastroesophageal reflux disease) Code(s): K21.9 - GASTRO-ESOPHAGEAL REFLUX DISEASE WITHOUT ESOPHAGITIS Status: Chronic Qualifiers: Esophagitis presence: esophagitis presence not specified Qualified Code(s): K21.9 - Gastro-esophageal reflux disease without esophagitis (11) Major depression Code(s): F32.9 - MAJOR DEPRESSIVE DISORDER, SINGLE EPISODE, UNSPECIFIED Status: Chronic Qualifiers: Major depression recurrence: unspecified whether recurrent Active/Remission status: in full remission Qualified Code(s): F32.5 - Major depressive disorder, single episode, in full remission (12) Osteoporosis Code(s): M81.0 - AGE-RELATED OSTEOPOROSIS W/O CURRENT PATHOLOGICAL FRACTURE Status: Chronic Qualifiers: Osteoporosis type: unspecified (13) Rheumatoid arthritis Code(s): M06.9 - RHEUMATOID ARTHRITIS, UNSPECIFIED Status: Chronic Qualifiers: Rheumatoid arthritis location: unspecified site - Plan had fever of 100 yesterday, family was concerned about sepsis, prelim blood cs x2 is -ve, cxr has increased interstitial markings total of 3 doses of lasix, cefipime and vanc (august dc in am), steroids, nebs has had 2 prior PFT's in 05/2017 and 10/2018 both show decreased diffusion capacity, 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 avoid narcotics and sleep aids including xanax (unless its for extreme anxiety) s/p left aka doing well. hemostable had severe valgus deformity of left knee with prox tibial fracture and dislocation. continue synthroid, zocor, celexa, neurontin, protonix and iron prior echo showed normal ef with no significant valvular issues (mild ) has long standing h/o RA and osteoporosis encourage po intake renal function almost baseline dc plan to rehab/swing bed, PT to mobilize for transfers awaiting placement and mobilization, may dc anytime
[2020-02-28] MEDS: metFORMIN 500 MG TAB PO SCH ×2 (14:27→21:31)
[2020-02-28] MEDS: Simvastatin 5 MG TAB PO SCH (21:31)
[2020-02-28] MEDS: Citalopram 20 MG TAB PO SCH (21:32)
[2020-02-28] MEDS: Vancomycin 1 GM in Premix Bag 1 BAG IVPB SCH (21:45)
[2020-02-29] MEDS ORDERED: ALPRAZolam 0.25 MG TAB PO SCH (00:45)
[2020-02-29] MEDS: Cefepime 1 GM in Sodium Chloride 0.9% 100 ML IVPB SCH ×2 (01:07→12:45)
[2020-02-29] MEDS: Furosemide 40 MG/4 ML VIAL SLOW IVP SCH (05:18)
[2020-02-29] MEDS: Levothyroxine Sodium 75 MCG TAB PO SCH (05:19)
[2020-02-29] MEDS: methylPREDNISolone Sod Succ 40 MG VIAL IVP SCH ×2 (05:19→14:43)
[2020-02-29 05:25] LABS: Anion Gap 16 mmol/L (10-20); BUN (Urea Nitrogen) 26 mg/dL (9.8-20.1); Calc. Creatinine Clearance 38 mL/min (70-130); Calcium 8.8 mg/dL (7.8-10.44); Carbon Dioxide 32 mmol/L (23-31); Chloride 95 mmol/L (98-107); Estimated GFR-MDRD 45; Glucose 359 mg/dL (83-110); Potassium 3.6 mmol/L (3.5-5.1); Sodium 139 mmol/L (136-145)
[2020-02-29] MEDS: HumaLOG 300 UNITS/3 ML VIAL SC PRN ×2 (06:00→16:50)
--- NOTE | 2020-02-29 06:17 | CON ---
DATE OF CONSULTATION: 02/28/2020 HISTORY OF PRESENT ILLNESS: Ms. Bolton is a 79-year-old female. 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 She was followed by Dr. Hopson in the past. She has missed her last 2 appointments in our office. She presented on February 18 with knee pain. She currently had a complicated tibial fracture. 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 I was consulted by the hospitalist. I am assuming this is because the x-ray changed, and there was a low-grade temperature yesterday. PAST MEDICAL HISTORY: Remarkable for; 1. Osteoporosis. 2. History of multiple fractures. 3. History of rheumatoid arthritis, on immunotherapy. She says she is late for her dose and her arthritis will flare without her immunotherapy. 4. Diabetes. 5. Hypertension. 6. Lipid disorder. 7. Hypothyroidism. 8. History of anemia of chronic disease. 9. History of distal femur fracture repair and proximal femur fracture repair as well as right ankle surgery for fracture. 10. History of colectomy for ischemic colitis. SOCIAL HISTORY: She is a nonsmoker and nondrinker. She was not very ambulatory prior to this and obviously will not be after this. ALLERGIES: SHE REPORTS INTOLERANCE TO QUINOLONES. REVIEW OF SYSTEMS: Negative for shortness of breath at this time. FAMILY HISTORY: Negative for lung disease in early age. PHYSICAL EXAMINATION: GENERAL: She is in no distress. She is afebrile. VITAL SIGNS: Heart rate is 100, respiratory rate is 18, oximetry is 95, blood pressure 108/62. HEENT: Pupils are equal. Sclerae are anicteric. NECK: Supple. LUNGS: Remarkable for fine crackles at both bases. She has distant breath sounds. HEART: Slightly irregular. ABDOMEN: Soft and nontender. EXTREMITIES: Without clubbing, cyanosis, or edema. On the right, she has had her amputation with a dressing over that. DIAGNOSTIC DATA: Chest x-ray repeated. First impression was that this was pulmonary edema. BNP is normal. Some of these findings could be secondary to atelectasis. She is on a non- monitored bed. If she is intermittently having atrial fibrillation, that certainly could explain her radiographic findings as well. She does not clinically appear to have pneumonia. She certainly has no symptoms of that, although she is old enough and immunosuppressed enough where she may not have typical symptoms of pneumonia. She is on broad antimicrobial therapy that was started yesterday. This should probably continue for another 24 to 48 hours, then antibiotics can be simplified. We will follow the other physicians caring for her. ADDENDUM: She has a history of latent tuberculosis. This was treated in the past according to records in my office. I suspect this was identified when she was being considered for immunotherapy. That is not a part of this in my opinion. This was a 50 min consult with greater than 50% of the time spent on the unit with coordination of care. Job ID: [id number] [email or web address]
[2020-02-29] MEDS: Gabapentin 300 MG CAP PO SCH ×3 (08:48→21:35)
[2020-02-29] MEDS: Ascorbic Acid 500 mg Chewable Tablet PO SCH (08:48)
[2020-02-29] MEDS: Bisacodyl 10 MG SUPP PR SCH (08:48)
[2020-02-29] MEDS: Ferrous Sulfate 325 MG TAB PO SCH ×2 (08:48→17:07)
[2020-02-29] MEDS: Polyethylene Glycol 3350 17 GM Packet PO SCH (08:49)
[2020-02-29] MEDS: Heparin 5,000 UNITS/ML VIAL SC SCH ×2 (08:49→21:35)
[2020-02-29] MEDS: Senokot S 8.6-50 MG TAB PO SCH (08:49)
[2020-02-29] MEDS: metFORMIN 500 MG TAB PO SCH ×3 (08:49→21:35)
--- NOTE | 2020-02-29 18:22 | PDOC.HOSPP ---
- Subjective Encounter Date: 02/29/20 Encounter Time: 10:30 Subjective: Patient seen and examined for medical management. Denies any chest pain or shortness of breath. No wheezing, fever or chest pain reported. - Objective Vital Signs & Weight: Vital Signs (12 hours) Temp Pulse Resp BP Pulse Ox 02/29/20 15:20 98.7 F 94 16 117/62 93 L 02/29/20 11:27 98.5 F 99 16 128/70 93 L 02/29/20 08:47 96 02/29/20 07:58 97.8 F 95 16 104/63 96 02/29/20 06:49 52 L 20 92 L Weight Admit Weight 145 lb Weight 133 lb 3.2 oz Most Recent Monitor Data Heart Rate from ECG 102 NIBP 103/50 NIBP BP-Mean 67 Respiration from ECG 14 SpO2 96 I&O: 02/28/20 02/29/20 03/01/20 06:59 06:59 06:59 Intake Total 1040 2200 Output Total 3000 2300 Balance -1960 -100 Result Diagrams: 03/01/20 04:54 03/01/20 04:54 Additional Labs: Accuchecks 02/29/20 02/29/20 02/28/20 11:29 05:13 21:00 POC Glucose 346 H 328 H 379 H Abnormal Lab Results - Last 48 hrs 02/28/20 10:52: B-Natriuretic Peptide 117.8 H 02/29/20 04:51: Chloride 95 L, Carbon Dioxide 32 H, BUN 26 H, Creatinine 1.17 H Microbiology - Entire Visit 02/27/20 19:00 Urine voided Urine Culture - Final Presumptive Princess albicans 02/27/20 17:34 Venous blood - Right Hand Blood Culture - Preliminary NO GROWTH AT 48 HOURS 02/27/20 17:34 Venous blood - Left Hand Blood Culture - Preliminary NO GROWTH AT 48 HOURS 02/21/20 09:43 Venous blood - Right Hand Blood Culture - Final NO GROWTH IN 5 DAYS 02/21/20 09:43 Venous blood - Right Arm Blood Culture - Final NO GROWTH IN 5 DAYS Radiology Reviewed by me: Yes (Chest x-rayno new infiltrate) Hospitalist ROS - Review of Systems Respiratory: denies: cough, dry, shortness of breath, hemoptysis, SOB with excertion, pleuritic pain, sputum, wheezing, other Cardiovascular: denies: chest pain, palpitations, orthopnea, paroxysmal noc. dyspnea, edema, light headedness, other - Medication Medications: Active Medications Generic Name Dose Route Start Last Admin Trade Name Sesarq PRN Reason Stop Dose Admin Acetaminophen 1,000 mg 02/19/20 20:46 02/28/20 08:38 Acetaminophen 500 Mg Tab PO 1,000 mg Q6H PRN Administration Mild-Moderate Pain (1-5) Acetaminophen 650 mg 02/21/20 17:44 02/27/20 17:18 Acetaminophen 650 Mg Suppository MD 650 mg Q4H PRN Administration Headache/Fever/Mild-Mod Pain Ascorbic Acid 500 mg 02/20/20 09:00 02/29/20 08:48 Ascorbic Acid 500 Mg Chewable Tablet PO 500 mg DAILY LOUISE Administration Bisacodyl 10 mg 02/28/20 09:00 02/29/20 08:48 Bisacodyl 10 Mg Supp MD 10 mg DAILY LOUISE Administration Citalopram Hydrobromide 20 mg 02/19/20 21:00 02/28/20 21:32 Citalopram 20 Mg Tab PO 20 mg HS LOUISE Administration Ferrous Sulfate 325 mg 02/20/20 08:00 02/29/20 17:07 Ferrous Sulfate 325 Mg Tab PO 325 mg BID-WM LOUISE Administration Gabapentin 300 mg 02/23/20 21:00 02/29/20 15:37 Gabapentin 300 Mg Cap PO 300 mg TID LOUISE Administration Heparin Sodium (Porcine) 5,000 units 02/20/20 09:00 02/29/20 08:49 Heparin 5,000 Units/Ml Vial SC 5,000 units BID LOUISE Administration Vancomycin HCl 1 gm/ Device 200 mls @ 200 mls/hr 02/27/20 22:00 02/28/20 21:45 IVPB 200 mls 2200 LOUISE Administration Cefepime HCl 1 gm/ Sodium 100 mls @ 200 mls/hr 02/28/20 12:00 02/29/20 12:45 Chloride IVPB 100 mls 1200,2359 LOUISE Administration Insulin Human Lispro 0 units 02/20/20 03:19 02/29/20 16:50 Humalog 300 Units/3 Ml Vial SC 6 unit .MILD SLIDING SCALE PRN Administration Mild Correctional Scale Insulin Human Lispro 0 units 02/20/20 03:19 02/28/20 21:44 Humalog 300 Units/3 Ml Vial SC 5 unit .BEDTIME SLIDING SC PRN Administration Bedtime Correctional Scale Levothyroxine Sodium 75 mcg 02/20/20 06:00 02/29/20 05:19 Levothyroxine Sodium 75 Mcg Tab PO 75 mcg 0600 LOUISE Administration Metformin HCl 500 mg 02/28/20 15:00 02/29/20 15:37 Metformin 500 Mg Tab PO 500 mg TID LOUISE Administration Pantoprazole Sodium 20 mg 02/20/20 09:00 02/29/20 08:47 Pantoprazole 40 Mg Tab PO 20 mg DAILY LOUISE Administration Polyethylene Glycol 17 gm 02/28/20 09:00 02/29/20 08:49 Polyethylene Glycol 3350 17 Gm Packet PO 17 gm DAILY LOUISE Administration Senna/Docusate Sodium 2 tab 02/27/20 21:00 02/29/20 08:49 Senokot S 8.6-50 Mg Tab PO 2 tab BID LOUISE Administration Simvastatin 10 mg 02/19/20 21:00 02/28/20 21:31 Simvastatin 5 Mg Tab PO 10 mg HS LOUISE Administration - Exam General Appearance: ill appearing Heart: RRR, no gallops Respiratory: no wheezes, rhonchi Gastrointestinal: soft, non-tender, normal bowel sounds Extremities: no cyanosis Neurological: no new deficit Psychiatric: normal affect, A&O x 3 Hosp A/P - Plan DVT proph w/SCDs Acute kidney injury on CKD stage III ? Aspiration pneumonia Hypertension Hyperlipidemia Diabetes mellitus type 2uncontrolled due to steroids Hypothyroidism Hypomagnesemia Hypercalcemia DJD Plan: Discontinue laxative since patient had several bowel movements. Change nebulizer treatments to as needed. Discontinue IV steroids. Discontinue IV Lasix. Continue IV antibiotics and change to oral in next 24 to 48 hours per pulmonary. Continue DVT prophylaxis. Continue levothyroxine. Change sliding scale to moderate. Add 1 dose of NPH for hyperglycemia due to steroids continue other medications as above.
[2020-02-29] MEDS ORDERED: HumaLOG 300 UNITS/3 ML VIAL SC PRN (18:27)
[2020-02-29] MEDS ORDERED: NPH, Human Insulin Isophane 300 UNIT/3 ML VIAL SC SCH (18:30)
[2020-02-29] MEDS: Simvastatin 5 MG TAB PO SCH (21:35)
[2020-02-29] MEDS: Saccharomyces boulardii 250 MG CAP PO SCH (21:35)
[2020-02-29] MEDS: Citalopram 20 MG TAB PO SCH (21:36)
[2020-02-29] MEDS: ALPRAZolam 0.25 MG TAB PO PRN (21:36)
[2020-02-29] MEDS: Melatonin 3 MG TAB PO SCH (21:36)
[2020-02-29] MEDS: Vancomycin 1 GM in Premix Bag 1 BAG IVPB SCH (22:10)
[2020-03-01] MEDS: Cefepime 1 GM in Sodium Chloride 0.9% 100 ML IVPB SCH (00:21)
[2020-03-01 05:06] LABS: #Eosinphils 0.3 thou/uL (0.0-0.7); #Lymphocytes 3.2 thou/uL (1.20-3.40); #Monocytes 1.4 thou/uL (0.11-0.59); #Neutrophils 8.2 thou/uL (1.40-6.50); %Basophils 0.2 % (0.0-1.0); %Eosinophils 2.2 % (0.0-10.0); %Lymphocytes 24.3 % (21.0-51.0); %Monocytes 10.8 % (0.0-10.0); %Neutrophils 62.4 % (42.0-75.0); Hemoglobin 9.6 g/dL (12.0-16.0); Mean Corpuscular HGB CONC 33.2 g/dL (32.0-36.0); Mean Corpuscular Hemoglobin 30.9 pg (27.0-31.0); Mean Corpuscular Volume 93.1 fL (78.0-98.0); Mean Platelet Volume 7.7 fL (7.4-10.4); Platelet Count 235 thou/uL (130-400); RBC Distribution Width 15.3 % (11.5-14.5); White Blood Cell (WBC) Count 13.1 thou/uL (4.8-10.8)
[2020-03-01] MEDS: Levothyroxine Sodium 75 MCG TAB PO SCH (05:27)
[2020-03-01 05:29] LABS: ALT (SGPT) 18 U/L (8-55); AST (SGOT) 29 U/L (5-34); Albumin 2.6 g/dL (3.4-4.8); Alkaline Phosphatase 64 U/L (40-110); Anion Gap 14 mmol/L (10-20); BUN (Urea Nitrogen) 29 mg/dL (9.8-20.1); Bilirubin, Total 0.2 mg/dL (0.2-1.2); Calc. Creatinine Clearance 47 mL/min (70-130); Calcium 8.6 mg/dL (7.8-10.44); Carbon Dioxide 35 mmol/L (23-31); Chloride 97 mmol/L (98-107); Estimated GFR-MDRD 58; Glucose 80 mg/dL (83-110); Protein, Total 5.6 g/dL (6.0-8.3); Sodium 143 mmol/L (136-145)
[2020-03-01] MEDS: Ferrous Sulfate 325 MG TAB PO SCH ×2 (08:40→16:53)
[2020-03-01] MEDS: metFORMIN 500 MG TAB PO SCH ×3 (08:41→21:00)
[2020-03-01] MEDS: Ascorbic Acid 500 mg Chewable Tablet PO SCH (08:41)
[2020-03-01] MEDS: Gabapentin 300 MG CAP PO SCH ×3 (08:41→21:00)
[2020-03-01] MEDS: Heparin 5,000 UNITS/ML VIAL SC SCH ×2 (08:44→21:00)
--- NOTE | 2020-03-01 09:22 | PRG ---
DATE OF SERVICE: 03/01/2020 SUBJECTIVE: Neris Bolton says she had diarrhea 5 times last night. OBJECTIVE: GENERAL: She is on room air. She is in no distress. VITAL SIGNS: She is afebrile, heart rate 73, respiratory rate 16, oximetry is 93, blood pressure is 112/66. LUNGS: Remarkable for fine crackles at both bases. HEART: Regular rhythm. ABDOMEN: Soft. Stump is bandaged. LABORATORY DATA: White count 13.1, hemoglobin 9.6, platelets 235. Sodium 143, potassium 3, chloride 97, bicarb 35, BUN 29, creatinine 0.94, albumin is 2.6. IMPRESSION: Diarrhea, most likely related IV antimicrobial therapy. Her transient drop in functional status and rapid improvement argues against her having pneumonia. I suspect most of her radiographic findings were related to atelectasis. Her IV antibiotics can be discontinued for now. She can be observed. Job ID: [id number]
[2020-03-01] MEDS ORDERED: Magnesium Sulfate 4 GM in Sodium Chloride 0.9% 250 ML 250 ML IVPB SCH (13:00)
[2020-03-01] MEDS ORDERED: Potassium Phosphate 30 MMOL in Sodium Chloride 0.9% 500 ML IVPB SCH (13:00)
[2020-03-01] MEDS: K-Phos Neutral 250 MG TAB PO SCH (16:53)
--- NOTE | 2020-03-01 18:17 | PDOC.HOSPP ---
- Subjective Encounter Date: 03/01/20 Encounter Time: 12:30 Subjective: Patient seen and examined for medical management. Denies any chest pain or shortness of breath. No fever or chills. Tolerating modified diet. - Objective Vital Signs & Weight: Vital Signs (12 hours) Temp Pulse Resp BP Pulse Ox 03/01/20 15:49 99.0 F 68 16 128/62 92 L 03/01/20 10:30 98.7 F 72 16 122/72 94 L 03/01/20 08:30 94 L 03/01/20 08:06 98.1 F 73 16 112/66 93 L Weight Admit Weight 145 lb Weight 133 lb 3.2 oz Most Recent Monitor Data Heart Rate from ECG 102 NIBP 103/50 NIBP BP-Mean 67 Respiration from ECG 14 SpO2 96 I&O: 02/29/20 03/01/20 03/02/20 06:59 06:59 06:59 Intake Total 2200 Output Total 2300 1150 Balance -100 -1150 Result Diagrams: 03/01/20 04:54 03/01/20 04:54 Additional Labs: Accuchecks 03/01/20 03/01/20 03/01/20 15:52 10:35 05:31 POC Glucose 86 102 H 77 02/29/20 21:38 POC Glucose 146 H Hospitalist ROS - Review of Systems Cardiovascular: denies: chest pain, palpitations, orthopnea, paroxysmal noc. dyspnea, edema, light headedness, other Gastrointestinal: denies: nausea, vomiting, abdominal pain, diarrhea, constipation, melena, hematochezia, other - Medication Medications: Active Medications Generic Name Dose Route Start Last Admin Trade Name Sesarq PRN Reason Stop Dose Admin Acetaminophen 1,000 mg 02/19/20 20:46 02/28/20 08:38 Acetaminophen 500 Mg Tab PO 1,000 mg Q6H PRN Administration Mild-Moderate Pain (1-5) Acetaminophen 650 mg 02/21/20 17:44 02/27/20 17:18 Acetaminophen 650 Mg Suppository [place] 650 mg Q4H PRN Administration Headache/Fever/Mild-Mod Pain Alprazolam 0.25 mg 02/29/20 18:32 02/29/20 21:36 Alprazolam 0.25 Mg Tab PO 0.25 mg BIDPRN PRN Administration Anxiety Ascorbic Acid 500 mg 02/20/20 09:00 03/01/20 08:41 Ascorbic Acid 500 Mg Chewable Tablet PO 500 mg DAILY LOUISE Administration Citalopram Hydrobromide 20 mg 02/19/20 21:00 02/29/20 21:36 Citalopram 20 Mg Tab PO 20 mg HS LOUISE Administration Ferrous Sulfate 325 mg 02/20/20 08:00 03/01/20 16:53 Ferrous Sulfate 325 Mg Tab PO 325 mg BID-WM LOUISE Administration Gabapentin 300 mg 02/23/20 21:00 03/01/20 14:34 Gabapentin 300 Mg Cap PO 300 mg TID LOUISE Administration Heparin Sodium (Porcine) 5,000 units 02/20/20 09:00 03/01/20 08:44 Heparin 5,000 Units/Ml Vial SC 5,000 units BID LOUISE Administration Potassium Phosphate 30 mmol/ 510 mls @ 83.3 mls/hr 03/01/20 13:00 03/01/20 17:40 Sodium Chloride IVPB 03/01/20 20:00 510 mls NOW LOUISE Administration Insulin Human Lispro 0 units 02/20/20 03:19 02/28/20 21:44 Humalog 300 Units/3 Ml Vial SC 5 unit .BEDTIME SLIDING SC PRN Administration Bedtime Correctional Scale Levothyroxine Sodium 75 mcg 02/20/20 06:00 03/01/20 05:27 Levothyroxine Sodium 75 Mcg Tab PO 75 mcg 0600 LOUISE Administration Melatonin 3 mg 02/29/20 21:00 02/29/20 21:36 Melatonin 3 Mg Tab PO 3 mg HS LOUISE Administration Metformin HCl 500 mg 02/28/20 15:00 03/01/20 14:35 Metformin 500 Mg Tab PO 500 mg TID LOUISE Administration Pantoprazole Sodium 20 mg 02/20/20 09:00 03/01/20 08:41 Pantoprazole 40 Mg Tab PO 20 mg DAILY LOUISE Administration Phosphorus 250 mg 03/01/20 17:00 03/01/20 16:53 K-Phos Neutral 250 Mg Tab PO 250 mg TID-WM LOUISE Administration Polyethylene Glycol 17 gm 02/28/20 09:00 02/29/20 08:49 Polyethylene Glycol 3350 17 Gm Packet PO 17 gm DAILY LOUISE Administration Saccharomyces Boulardii 250 mg 02/29/20 21:00 02/29/20 21:35 Saccharomyces Boulardii 250 Mg Cap PO 250 mg HS LOUISE Administration Senna/Docusate Sodium 2 tab 02/27/20 21:00 02/29/20 08:49 Senokot S 8.6-50 Mg Tab PO 2 tab BID LOUISE Administration Simvastatin 10 mg 02/19/20 21:00 02/29/20 21:35 Simvastatin 5 Mg Tab PO 10 mg HS LOUISE Administration - Exam General Appearance: NAD Neck: supple, no JVD Heart: RRR, no gallops Respiratory: no wheezes, no ronchi Gastrointestinal: non-tender, normal bowel sounds Extremities: no cyanosis, no clubbing Neurological: no new deficit Hosp A/P - Plan DVT proph w/SCDs Acute kidney injury on CKD stage III ?Aspiration pneumonia Hypomagnesemia/hypokalemia Hypertension Hyperlipidemia Diabetes mellitus type 2uncontrolled due to steroids Hypothyroidism Hypomagnesemia Hypercalcemia DJD Plan: Antibiotics discontinued. Diarrhea improving. Continue sliding scale. Mild leukocytosis probably due to steroid. Continue heparin for DVT prophylaxis. Continue levothyroxine. Continue other medications as above. Replace magnesium and potassium. Repeat labs in a.m.
[2020-03-01] MEDS ORDERED: HumaLOG 300 UNITS/3 ML VIAL SC PRN (18:19)
[2020-03-01] MEDS: Simvastatin 5 MG TAB PO SCH (20:59)
[2020-03-01] MEDS: Citalopram 20 MG TAB PO SCH (21:00)
[2020-03-01] MEDS: ALPRAZolam 0.25 MG TAB PO PRN (21:00)
[2020-03-01] MEDS: Saccharomyces boulardii 250 MG CAP PO SCH (21:01)
[2020-03-01] MEDS: Melatonin 3 MG TAB PO SCH (21:01)
[2020-03-01] MEDS: Magnesium Chloride 64 MG TAB PO SCH (21:01)
[2020-03-02] MEDS: Levothyroxine Sodium 75 MCG TAB PO SCH (05:38)
[2020-03-02 06:38] LABS: Anion Gap 16 mmol/L (10-20); BUN (Urea Nitrogen) 19 mg/dL (9.8-20.1); Calc. Creatinine Clearance 53 mL/min (70-130); Calcium 8.3 mg/dL (7.8-10.44); Carbon Dioxide 30 mmol/L (23-31); Chloride 101 mmol/L (98-107); Estimated GFR-MDRD 66; Glucose 87 mg/dL (83-110); Phosphorus 3.5 mg/dL (2.3-4.7); Potassium 3.5 mmol/L (3.5-5.1); Sodium 143 mmol/L (136-145)
[2020-03-02 06:45] LABS: #Eosinphils 0.8 thou/uL (0.0-0.7); #Neutrophils 5.6 thou/uL (1.40-6.50); %Basophils 0.5 % (0.0-1.0); %Eosinophils 8.9 % (0.0-10.0); %Monocytes 10.8 % (0.0-10.0); %Neutrophils 58.8 % (42.0-75.0); Hemoglobin 9.6 g/dL (12.0-16.0); Mean Corpuscular HGB CONC 33.8 g/dL (32.0-36.0); Mean Corpuscular Hemoglobin 30.8 pg (27.0-31.0); Mean Corpuscular Volume 91.2 fL (78.0-98.0); Mean Platelet Volume 7.6 fL (7.4-10.4); Platelet Count 232 thou/uL (130-400); RBC Distribution Width 15.3 % (11.5-14.5); White Blood Cell (WBC) Count 9.5 thou/uL (4.8-10.8)
[2020-03-02] MEDS: Ferrous Sulfate 325 MG TAB PO SCH ×2 (08:46→16:39)
[2020-03-02] MEDS: K-Phos Neutral 250 MG TAB PO SCH ×2 (08:47→12:17)
[2020-03-02] MEDS: Ascorbic Acid 500 mg Chewable Tablet PO SCH (08:48)
[2020-03-02] MEDS: Heparin 5,000 UNITS/ML VIAL SC SCH ×2 (08:48→21:28)
[2020-03-02] MEDS: metFORMIN 500 MG TAB PO SCH ×2 (08:48→17:17)
[2020-03-02] MEDS: Gabapentin 300 MG CAP PO SCH ×3 (08:48→21:27)
[2020-03-02] MEDS: Magnesium Chloride 64 MG TAB PO SCH ×2 (08:49→21:29)
[2020-03-02] MEDS: Loperamide HCl 2 MG CAP PO PRN (17:22)
[2020-03-02] MEDS: Saccharomyces boulardii 250 MG CAP PO SCH (21:27)
[2020-03-02] MEDS: Melatonin 3 MG TAB PO SCH (21:27)
[2020-03-02] MEDS: Citalopram 20 MG TAB PO SCH (21:28)
[2020-03-02] MEDS: Simvastatin 5 MG TAB PO SCH (21:28)
--- NOTE | 2020-03-02 21:49 | PDOC.HOSPP ---
- Subjective Encounter Date: 03/02/20 Encounter Time: 08:45 Subjective: Patient seen and examined for medical management. Denies any fever or chills. No new shortness of breath or chest pain. No overnight events. - Objective Vital Signs & Weight: Vital Signs (12 hours) Temp Pulse Resp BP Pulse Ox 03/02/20 19:16 99.8 F H 78 16 125/64 96 03/02/20 11:00 98.9 F 85 16 146/74 H 94 L Weight Admit Weight 145 lb Weight 133 lb 3.2 oz Most Recent Monitor Data Heart Rate from ECG 102 NIBP 103/50 NIBP BP-Mean 67 Respiration from ECG 14 SpO2 96 I&O: 03/01/20 03/02/20 03/03/20 06:59 06:59 06:59 Intake Total 1196 Output Total 1150 1100 Balance -1150 96 Result Diagrams: 03/02/20 05:28 03/02/20 05:28 Additional Labs: Accuchecks 03/02/20 03/02/20 03/02/20 20:54 14:46 11:23 POC Glucose 132 H 111 H 90 03/02/20 02/29/20 05:30 15:42 POC Glucose 89 365 H Hospitalist ROS - Review of Systems Cardiovascular: denies: chest pain, palpitations, orthopnea, paroxysmal noc. dyspnea, edema, light headedness, other Gastrointestinal: denies: nausea, vomiting, abdominal pain, diarrhea, constipation, melena, hematochezia, other - Medication Medications: Active Medications Generic Name Dose Route Start Last Admin Trade Name Freq PRN Reason Stop Dose Admin Acetaminophen 1,000 mg 02/19/20 20:46 02/28/20 08:38 Acetaminophen 500 Mg Tab PO 1,000 mg Q6H PRN Administration Mild-Moderate Pain (1-5) Acetaminophen 650 mg 02/21/20 17:44 02/27/20 17:18 Acetaminophen 650 Mg Suppository [place] 650 mg Q4H PRN Administration Headache/Fever/Mild-Mod Pain Alprazolam 0.25 mg 02/29/20 18:32 03/01/20 21:00 Alprazolam 0.25 Mg Tab PO 0.25 mg BIDPRN PRN Administration Anxiety Ascorbic Acid 500 mg 02/20/20 09:00 03/02/20 08:48 Ascorbic Acid 500 Mg Chewable Tablet PO 500 mg DAILY LOUISE Administration Citalopram Hydrobromide 20 mg 02/19/20 21:00 03/02/20 21:28 Citalopram 20 Mg Tab PO 20 mg HS LOUISE Administration Ferrous Sulfate 325 mg 02/20/20 08:00 03/02/20 16:39 Ferrous Sulfate 325 Mg Tab PO 325 mg BID-WM LOUISE Administration Gabapentin 300 mg 02/23/20 21:00 03/02/20 21:27 Gabapentin 300 Mg Cap PO 300 mg TID LOUISE Administration Heparin Sodium (Porcine) 5,000 units 02/20/20 09:00 03/02/20 21:28 Heparin 5,000 Units/Ml Vial SC 5,000 units BID LOUISE Administration Insulin Human Lispro 0 units 02/20/20 03:19 02/28/20 21:44 Humalog 300 Units/3 Ml Vial SC 5 unit .BEDTIME SLIDING SC PRN Administration Bedtime Correctional Scale Levothyroxine Sodium 75 mcg 02/20/20 06:00 03/02/20 05:38 Levothyroxine Sodium 75 Mcg Tab PO 75 mcg 0600 LOUISE Administration Loperamide HCl 2 mg 03/02/20 16:29 03/02/20 17:22 Loperamide Hcl 2 Mg Cap PO 2 mg PRN PRN Administration Diarrhea/Loose Stools Magnesium Chloride 64 mg 03/01/20 21:00 03/02/20 21:29 Magnesium Chloride 64 Mg Tab PO 64 mg BID LOUISE Administration Melatonin 3 mg 02/29/20 21:00 03/02/20 21:27 Melatonin 3 Mg Tab PO 3 mg HS LOUISE Administration Metformin HCl 500 mg 02/28/20 15:00 03/02/20 17:17 Metformin 500 Mg Tab PO Not Given TID LOUISE Pantoprazole Sodium 20 mg 02/20/20 09:00 03/02/20 08:48 Pantoprazole 40 Mg Tab PO 20 mg DAILY LOUISE Administration Polyethylene Glycol 17 gm 02/28/20 09:00 02/29/20 08:49 Polyethylene Glycol 3350 17 Gm Packet PO 17 gm DAILY LOUISE Administration Saccharomyces Boulardii 250 mg 02/29/20 21:00 03/02/20 21:27 Saccharomyces Boulardii 250 Mg Cap PO 250 mg HS LOUISE Administration Simvastatin 10 mg 02/19/20 21:00 03/02/20 21:28 Simvastatin 5 Mg Tab PO 10 mg HS LOUISE Administration - Exam General Appearance: NAD Neck: supple, no JVD Heart: RRR, no gallops Respiratory: no rales, normal chest expansion Gastrointestinal: soft, non-distended Extremities: no cyanosis Hosp A/P - Plan DVT proph w/SCDs Acute kidney injury on CKD stage IIIImproved ?Aspiration pneumoniaRuled out for pulmonary Hypomagnesemia/hypokalemiaReplaced Hypertension Hyperlipidemia Diabetes mellitus type 2 Hypothyroidism Hypomagnesemia Hypercalcemia DJD Antibiotic associated diarrhea Plan: Patient remains on room air. Denies any respiratory difficulty. Diarrhea slowing down. Hold metformin due to diarrhea. Continue sliding scale. Continue probiotics. Continue other medications as above.
[2020-03-03] MEDS: Levothyroxine Sodium 75 MCG TAB PO SCH (05:11)
[2020-03-03] MEDS: Heparin 5,000 UNITS/ML VIAL SC SCH (08:54)
[2020-03-03] MEDS: Gabapentin 300 MG CAP PO SCH (08:54)
[2020-03-03] MEDS: Ferrous Sulfate 325 MG TAB PO SCH (08:55)
[2020-03-03] MEDS: Ascorbic Acid 500 mg Chewable Tablet PO SCH (08:55)
[2020-03-03] MEDS: Loperamide HCl 2 MG CAP PO PRN (08:59)
[2020-03-03 12:43] VITALS: BP 124/67
[2020-03-03 14:53] VITALS: TEMP 99.2
--- NOTE | 2020-03-06 10:54 | DIS ---
DATE OF ADMISSION: 02/19/2020 DATE OF DISCHARGE: 03/03/2020 This is Jason Jama PA-C dictating a report for Barron Solorzano MD. ADDITIONAL DICTATED FOR PHYSICIAN: Ashvin Wilson MD PREOPERATIVE DIAGNOSIS: Left posterior knee displacement with fracture. POSTOPERATIVE DIAGNOSIS: Left posterior knee displacement with fracture. 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 HOSPITAL STAY: Fairly unremarkable. For the first few days, there were many converses with the patient, family, loved ones about what procedure we should do whether be a full leg knee fusion or above the knee amputation. The patient and family on 02/21 decided on an above knee amputation. Postoperatively, the patient was little somnolent and tired for the 1st few days, but over the next few days, she perked up a little bit. She did need full assistance to get in and out of the bed into a chair, but by 03/03, she was doing much better. she could go home and she worked hard to get home. DISCHARGE CONDITION: Good/stable. DISPOSITION: Home with family. FOLLOWUP: Would be in 10 days to 14 days for wound check and staple removal. She will call or follow up sooner if there are any questions, problems, and/or concerns. DISCHARGE MEDICATIONS: Given with usage instructions. Job ID: [id number]
== END 2020-03-03 15:43 | disposition home or self-care (01) | DRG 475 ==
LOC: ERS 16:25 → SURG A 18:43 → IMCU/EMU 02-21 14:57 → SURG B 02-24 16:12
PROVIDERS: ADMIT Orthopaedic Surgery; ATTEND Orthopaedic Surgery
PROC: 3E02340 Introduction of Influenza Vaccine into Muscle, Percutaneous Approach (ICD-10-PCS; 2020-02-20)
PROC: 0Y6D0Z3 Detachment at Left Upper Leg, Low, Open Approach (ICD-10-PCS; principal; 2020-02-23)
PROC: 30233N1 Transfusion of Nonautologous Red Blood Cells into Peripheral Vein, Percutaneous Approach (ICD-10-PCS; 2020-02-24)
DX: S82.102K Unspecified fracture of upper end of left tibia, subsequent encounter for closed fracture with nonunion (principal); N17.9 Acute kidney failure, unspecified; J98.11 Atelectasis; K52.1 Toxic gastroenteritis and colitis; Z20.828 Contact with and (suspected) exposure to other viral communicable diseases; Z23 Encounter for immunization; E78.5 Hyperlipidemia, unspecified; M81.0 Age-related osteoporosis without current pathological fracture; M85.80 Other specified disorders of bone density and structure, unspecified site; M19.90 Unspecified osteoarthritis, unspecified site; X58.XXXD Exposure to other specified factors, subsequent encounter; D64.9 Anemia, unspecified; G89.29 Other chronic pain; F32.5 Major depressive disorder, single episode, in full remission; M21.062 Valgus deformity, not elsewhere classified, left knee; E83.52 Hypercalcemia; M06.9 Rheumatoid arthritis, unspecified; E11.22 Type 2 diabetes mellitus with diabetic chronic kidney disease; I12.9 Hypertensive chronic kidney disease with stage 1 through stage 4 chronic kidney disease, or unspecified chronic kidney disease; N18.30 Chronic kidney disease, stage 3 unspecified; E83.42 Hypomagnesemia; F41.9 Anxiety disorder, unspecified; E11.65 Type 2 diabetes mellitus with hyperglycemia; T38.0X5A Adverse effect of glucocorticoids and synthetic analogues, initial encounter; K21.9 Gastro-esophageal reflux disease without esophagitis; L89.512 Pressure ulcer of right ankle, stage 2; I48.91 Unspecified atrial fibrillation; Z86.15 Personal history of latent tuberculosis infection; Z90.710 Acquired absence of both cervix and uterus; Z88.1 Allergy status to other antibiotic agents; Z79.890 Hormone replacement therapy; Z79.84 Long term (current) use of oral hypoglycemic drugs; Z79.899 Other long term (current) drug therapy; Z90.49 Acquired absence of other specified parts of digestive tract; T36.95XA Adverse effect of unspecified systemic antibiotic, initial encounter; E87.6 Hypokalemia
CPT/HCPCS: 36415; 36416; 36430; 71045; 76770; 80048; 80053; 80202; 82306; 82570; 82652; 82728; 83540; 83550; 83735; 83880; 83970; 84100; 84300; 84443; 85025; 85652; 86140; 86334; 86335; 86850; 86900; 86901; 87040; 87086; 87635; 88307; 90471; 90662; 94640; G0008; J0690; J0692; J1100; J1644; J1815; J1940; J2405; J2704; J2920; J3010; J3370; J3475; J3490; J7030; J7050; J7620; P9016; U0003